=== PATIENT | female | born 1980 | race Caucasian/White ===

== ENCOUNTER 2016-05-20 12:08 | Inpatient (IN) | payer OTHER ==
[~2016-05-20] VITALS: Ht 162.6 cm; Wt 77.2 kg
[~2016-05-20 12:08] MED LIST: CITALOPRAM HBR20 MG PO; LORAZEPAM0.5 MG PO; PROTONIX40 M3 PO
[2016-05-20 13:25] VITALS: BP 109/80
[2016-05-20 13:33] LABS: ABSOLUTE BASOPHIL COUNT 0 /CUMM (0.0-0.2); ABSOLUTE EOSINOPHIL COUNT 0.1 /CUMM (0.0-0.7); ABSOLUTE GRANULOCYTE CT 4.8 /CUMM (1.4-6.5); ABSOLUTE LYMPH COUNT 2.4 /CUMM (1.2-3.4); ABSOLUTE MONOCYTE COUNT 0.8 /CUMM (0.10-0.60); BASOPHIL % 0.5 % (0.0-2.0); EOSINOPHIL % 0.7 % (0-5); GRANULOCYTE % 59.8 % (42.2-75.2); HEMATOCRIT 35.8 % (37-47); MEAN CORPUSCULAR HGB 34.5 PG (27.0-31.0); MEAN CORPUSCULAR HGB CONC 35.3 G/DL (33.0-37.0); MEAN CORPUSCULAR VOLUME 97.6 FL (81.0-99.0); MEAN PLATELET VOLUME 9.4 FL (7.4-10.4); PLATELET COUNT 115 /CUMM (130-400); RED BLOOD CELL CT 3.66 /CUMM (4.20-5.40); WHITE BLOOD CELL COUNT 8.1 /CUMM (4.8-10.8)
[2016-05-20] MEDS ORDERED: GABAPENTIN300 M2 PO (14:08)
[2016-05-20] MEDS ORDERED: METOPROLOL SUCC50 M2 PO (14:09)
[2016-05-20] MEDS ORDERED: TEGRETOL XR200 M1 PO (14:09)
[2016-05-20] MEDS ORDERED: FERROUS SULFAT325 M3 PO (14:10)
[2016-05-20] MEDS ORDERED: CLINDAMYCIN HC300 M1 PO (14:10)
[2016-05-20] MEDS ORDERED: FOLIC ACID0.8 M2 PO (14:10)
[2016-05-20] MEDS ORDERED: TERBINAFINE HC250 MG PO (14:11)
[2016-05-20] MEDS ORDERED: HAIR-SKIN-NAIL1 EACH PO (14:12)
--- NOTE | 2016-05-20 14:12 | ED PSYCHIATRIC COMPLAINT ---
See Addendum History of Present Illness General Chief Complaint: ETOH/Drug Related Complaint Stated Complaint: REQUEST DETOX ETOH Source: patient, old records, friend Exam Limitations: intoxication Vital Signs & Intake/Output Vital Signs & Intake/Output Vital Signs Date Time Temp Pulse Resp B/P Pulse O2 O2 Flow FiO2 Ox Delivery Rate 05/20 1448 97.4 67 18 102/58 04 1421 97.4 67 18 102/58 94 Room Air 05/20 1325 98.7 101 20 109/80 05/20 1213 98.7 101 20 109/80 98 Room Air Allergies Coded Allergies: Sulfa (Sulfonamide Antibiotics) (UNKNOWN 05/20/16) Reconcile Medications Carbamazepine (Tegretol XR) 200 MG TAB.ER.12H 1 TAB PO BID UNKNOWN (Reported) Citalopram Hydrobromide (Citalopram HBr) 20 MG TABLET 1 TAB PO DAILY MENTAL HEALTH (Reported) Clindamycin HCl 300 MG CAPSULE 1 CAP PO Q6 ANTIBIOTIC, INFECTION (Reported) Ferrous Sulfate 325 MG (65 MG IRON) TABLET 1 TAB PO DAILY SUPPLEMENT ( Reported) Folic Acid 0.8 MG TABLET 1 TAB PO DAILY SUPPLEMENT (Reported) Gabapentin 300 MG CAPSULE 1 CAP PO TID UNKNOWN (Reported) Metoprolol Succinate 50 MG TAB.ER.24H 1 TAB PO DAILY HEART (Reported) Pantoprazole Sodium (Protonix) 40 MG TABLET.DR 1 TAB PO DAILY GI (Reported) Terbinafine HCl 250 MG TABLET 1 TAB PO DAILY UNKNOWN (Reported) Vitamin C/Biotin (Bpea-Zkkt-Onhpl Gummies) 50 MG-1,250 MCG TAB.CHEW 2 TAB PO DAILY SUPPLEMENT (Reported) Triage Note: PT TO ED WITH FRIEND REQUESTING ETOH DETOX. STATES SHE DRINKS 5-6 (25 OZ) BEERS PER DAY. 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 DENIES DRUG USE. DENIES SI/HI. STATES HAS DETOXED IN THE PAST, LAST TIME WAS 2015. PT HAS H/O SEIZURES FOR WHICH SHE TAKES TEGRETOL, STATES SEIZURES CAN WORSE WITH ETOH DETOX. PT ALSO C/O N/V/D. Triage Nurses Notes Reviewed? yes Onset: Just prior to arrival Duration: week(s):, constant, continues in ED Timing: recent history Severity: severe Associated Symptoms: anxiety, impaired concentration LMP (ages 10-50): unknown : No Patient currently breastfeeds: No HPI: Patient admits to being alcoholic and continues to drink beer and hard liquor with lasting prior to admission seeking detox. She has a history of withdrawal seizures greater than 1 year ago and DTs. She also reports episodes of nausea vomiting loose stools when arising daily over the last month. She denies fever chills chest pain cough shortness of breath headache dysuria rash bleeding. (EDWARDO ALEX MD) Past History Travel History Traveled to [place] past 21 day No Medical History Any Pertinent Medical History? see below for history Neurological: seizure Cardiovascular: tachycardia Influenza Vaccine: 01/23/11 Surgical History Surgical History: non-contributory Psychosocial History Who do you live with Patient/Self Services at Home None What is your primary language Sinhala Tobacco Use: Current Daily Use Daily Tobacco Use Amount/Type: => 5 Cigarettes daily ETOH Use: alcoholic Illicit Drug Use: denies illicit drug use Family History Hx Contributory? No (EDWARDO ALEX MD) Review of Systems Review of Systems Constitutional: Reports: no symptoms. EENTM: Reports: no symptoms. Respiratory: Reports: no symptoms. Cardiovascular: Reports: no symptoms. GI: Reports: see HPI, diarrhea, nausea, vomiting. Genitourinary: Reports: no symptoms. Musculoskeletal: Reports: no symptoms. Skin: Reports: no symptoms. Neurological/Psychological: Reports: see HPI, confusion, emotional problems. Hematologic/Endocrine: Reports: no symptoms. Immunologic/Allergic: Reports: no symptoms. All Other Systems: Reviewed and Negative (EDWARDO ALEX MD) Physical Exam Physical Exam General Appearance: well developed/nourished, alert, awake, anxious, mild distress Head: atraumatic, normal appearance Eyes: Bilateral: normal appearance, PERRL, EOMI. Ears, Nose, Throat: normal pharynx, normal ENT inspection, hearing grossly normal Neck: normal inspection, supple, full range of motion, no midline tenderness Respiratory: normal breath sounds, chest non-tender, no respiratory distress, quiet respiration, lungs clear Cardiovascular: regular rate/rhythm, normal peripheral pulses, norml femoral pulses equa Gastrointestinal: normal bowel sounds, soft, non-tender, no organomegaly Extremities: normal range of motion Neurological/Psychiatric: no motor/sensory deficits, awake, agitated, alert, anxious, cake mixer II-XII nml as tested, oriented x 3 Appearance/Memory/Insight: disheveled, impaired insight Behavoir/Eye Contact/Speech: cooperative, normal speech Thoughts/Hallucinations: no apparent hallucination Skin: intact, normal color, warm/dry SAD PERSONS Done? patient not suicidal (EDWARDO ALEX MD) Progress Differential Diagnosis: drug intoxication, drug overdose, drug withdrawal, hypoglycemia Plan of Care: Orders Procedure Date/time Status [facility] 05/20 125 Active URINE DRUG SCREEN FOR ER ONLY 05/20 125 Complete TEGRETOL LEVEL 05/20 125 Complete MAGNESIUM 05/20 125 Complete LIPASE 05/20 125 Complete ETHANOL 05/20 1254 Complete COMPREHENSIVE METABOLIC PANEL 05/20 125 Complete CBC WITHOUT DIFFERENTIAL 05/20 125 Complete Laboratory Tests 05/20/16 1320: Anion Gap 19 H, Estimated GFR > 60, BUN/Creatinine Ratio 4.0 L, Glucose 125 H , Calcium 8.8, Magnesium 1.3 L, Total Bilirubin 0.9, AST 420 H, ALT 196 H, Alkaline Phosphatase 223 H, Total Protein 7.1, Albumin 3.6, Globulin 3.5, Albumin/Globulin Ratio 1.0 L, Lipase 324 H, CBC w Diff NO MAN DIFF REQ, RBC 3.66 L, MCV 97.6, MCH 34.5 H, RDW 15.0 H, MPV 9.4, Gran % 59.8, Lymphocytes % 29.2, Monocytes % 9.8 H, Eosinophils % 0.7, Basophils % 0.5, Absolute Granulocytes 4.8, Absolute Lymphocytes 2.4, Absolute Monocytes 0.8 H, Absolute Eosinophils 0.1, Absolute Basophils 0, PUBS MCHC 35.3, Carbamazepine 7.7, Serum Alcohol 377.0 05/20/16 1310: Urine Opiates Screen < 100.00, Methadone Screen < 40, Barbiturate Screen < 60, Ur Phencyclidine Scrn < 6.00, Amphetamines Screen < 100, U Benzodiazepines Scrn < 85, Urine Cocaine Screen < 50, Urine Cannabis Screen < 5.00 Hand-Off Endorsed To: ROSALIA DUFF DO Endorsed Time: 1600 Pending: other (MAKAYLA, Case Mgmt) (EDWARDO ALEX MD) Departure Departure Disposition: STILL A PATIENT Condition: Stable Clinical Impression Primary Impression: Alcohol intoxication delirium Secondary Impressions: Alcoholic liver disease, Hypomagnesemia Referrals: MAGO DOUGHERTY,RIP Beck (PCP/Family) Departure Forms: General Discharge Information (ISAI DOUGHERTY,EDWARDO) Departure Comments 05/20/16 4 PM Patient was signed out to me by Dr. Alex. She is here for acute alcohol intoxication. Alcohol level was 377. (ROSALIA DUFF DO)
[2016-05-20 14:48] VITALS: BP 102/58
[2016-05-20 16:53] VITALS: BP 109/56
[2016-05-20 18:48] VITALS: BP 103/68
[2016-05-20 20:31] VITALS: BP 124/74
[2016-05-20 22:50] VITALS: BP 115/74
[2016-05-21] VITALS (10 sets, daily range): BP systolic 98–145; BP diastolic 56–92
--- NOTE | 2016-05-21 06:32 | History & Physical ---
JAVED BETTENCOURT 05/21/16 0631: General Information and HPI MD Statement: I have seen and personally examined DELORIS WINTER and documented this H&P. The patient is a 35 year old F who presented with a patient stated chief complaint of [alcohol detox]. Source of Information: patient, old records History of Present Illness: This is 35-year-old female with past medical history of alcohol withdrawal seizure, asthma not on current medication, depression, anxiety, peripheral neuropathy. Presented to the emergency department requesting alcohol detox. Patient stated that she drink every day since 2016 until now, 6-7 cans of beer and hard liquor, patient stated that she was super for 1-1/2 month in the beginning of 2016 after that she restart drinking again, last drink was prior admission. Patient stated that the reason is because she likes to drink. She stated that she had a history of alcohol withdrawal seizure 6 years ago. She denied any admission to the ICU due to alcohol. Patient reported that she went to [facility] 2 weeks ago requesting detox but she was discharged from the hospital on Ativan taper. Now she stated that she complaining of tremor, palpitation, chest tightness, heart flashes with sweating, she feels that she is dehydrated, she reports nausea and 2 time vomiting without any blood, also she reports that she talk back to her boyfriend and brother despite no one in the room. Patient reports diarrhea for the past couple weeks none bloody. She denied any chest pain, chills, voice hallucination, Jermaine ideation, abdominal pain, constipation, headaches, change in vision or hearing, hematuria, dysuria. In ED patient was given by mouth Ativan and IV, due to high requirement patient was started on Ativan drip, also her magnesium was low she was given by mouth magnesium supplement. Allergies/Medications Allergies: Coded Allergies: Sulfa (Sulfonamide Antibiotics) (UNKNOWN 05/20/16) Home Med list Carbamazepine (Tegretol XR) 200 MG TAB.ER.12H 1 TAB PO BID UNKNOWN (Reported) Citalopram Hydrobromide (Citalopram HBr) 20 MG TABLET 1 TAB PO DAILY MENTAL HEALTH (Reported) Ferrous Sulfate 325 MG (65 MG IRON) TABLET 1 TAB PO DAILY SUPPLEMENT ( Reported) Folic Acid 0.8 MG TABLET 1 TAB PO DAILY SUPPLEMENT (Reported) Gabapentin 300 MG CAPSULE 1 CAP PO TID UNKNOWN (Reported) Metoprolol Succinate 50 MG TAB.ER.24H 1 TAB PO DAILY HEART (Reported) Pantoprazole Sodium (Protonix) 40 MG TABLET.DR 1 TAB PO DAILY GI (Reported) Vitamin C/Biotin (Hmwg-Hkuq-Xrcig Gummies) 50 MG-1,250 MCG TAB.CHEW 2 TAB PO DAILY SUPPLEMENT (Reported) Past History Travel History Traveled to [place] past 21 day No Medical History Neurological: peripheral neuropathy, seizure Cardiovascular: tachycardia Respiratory: asthma Influenza Vaccine: 01/23/11 Surgical History Surgical History: appendectomy Past Family/Social History Family History Relations & Conditions if any MOTHER (HEALTHY). FATHER (HEALTHY). Psychosocial History Services at Home: None Smoking Status: Current Everyday Smoker ETOH Use: alcoholic Illicit Drug Use: denies illicit drug use Functional Ability ADLs Independent: dressing, eating, toileting, bathing. Ambulation: independent IADLs Independent: shopping, housework, finances, food prep, telephone, transportation , medication admin. Review of Systems Review of Systems Constitutional: Reports: see HPI. Cardiovascular: Reports: see HPI. Respiratory: Reports: see HPI. GI: Reports: see HPI. Genitourinary: Reports: see HPI. Exam & Diagnostic Data Last 24 Hrs of Vital Signs/I&O Vital Signs Date Time Temp Pulse Resp B/P Pulse O2 O2 Flow FiO2 Ox Delivery Rate 05/21 626 109 16 113/65 98 Nasal 3.0L Cannula 05/21 0436 97.9 110 22 115/56 98 Nasal 2.0L Cannula 05/21 0535 110 20 115/56 04/06 0430 124 20 145/89 / 0430 125 20 145/89 97 Nasal 2.0L Cannula / 0423 125 20 145/89 / 0307 98.3 120 18 141/65 97 Room Air /06 0300 98.3 120 18 141/65 04/06 0049 97.9 110 18 119/67 04/06 0028 97.9 110 18 119/67 95 Room Air 04/05 2251 98.5 118 20 115/74 98 Room Air /2249 98.5 98 20 115/74 04/2150 97.5 97 20 125/72 93 Room Air 04/2031 97.3 100 18 122/64 100 Room Air /2030 97.3 100 18 124/74 / 1848 97.1 98 18 103/68 04/05 1847 97.1 98 18 103/68 94 Room Air /05 1654 97.9 94 17 109/56 94 Room Air /05 1653 97.9 94 17 109/56 04/05 1448 97.4 67 18 102/58 04/05 1421 97.4 67 18 102/58 94 Room Air / 1325 98.7 101 20 109/80 04/05 1213 98.7 101 20 109/80 98 Room Air Intake & Output 05/21 0800 05/21 0000 05/20 1600 Intake Total 2000 Output Total 1 Balance 1999 - Intake, IV 1999 Output, Urine 1 Patient 160 lb Weight Physical Exam General Appearance Alert, Oriented X3, Cooperative HEENT PERRLA, EOMI Neck Supple Cardiovascular Normal S1, Normal S2 Lungs Normal Air Movement, EXPIRATORY WHEEZING Abdomen Normal Bowel Sounds, Soft, No Tenderness Extremities No Edema, Normal Pulses, UPPER EXT TREMOR NOTED Last 24 Hrs of Labs/Deric: Laboratory Tests 05/20/16 1320: Anion Gap 19 H, Estimated GFR > 60, BUN/Creatinine Ratio 4.0 L, Glucose 125 H , Calcium 8.8, Magnesium 1.3 L, Total Bilirubin 0.9, AST 420 H, ALT 196 H, Alkaline Phosphatase 223 H, Total Protein 7.1, Albumin 3.6, Globulin 3.5, Albumin/Globulin Ratio 1.0 L, Lipase 324 H, CBC w Diff NO MAN DIFF REQ, RBC 3.66 L, MCV 97.6, MCH 34.5 H, RDW 15.0 H, MPV 9.4, Gran % 59.8, Lymphocytes % 29.2, Monocytes % 9.8 H, Eosinophils % 0.7, Basophils % 0.5, Absolute Granulocytes 4.8, Absolute Lymphocytes 2.4, Absolute Monocytes 0.8 H, Absolute Eosinophils 0.1, Absolute Basophils 0, PUBS MCHC 35.3, Carbamazepine 7.7, Serum Alcohol 377.0 05/20/16 1310: Urine Opiates Screen < 100.00, Methadone Screen < 40, Barbiturate Screen < 60, Ur Phencyclidine Scrn < 6.00, Amphetamines Screen < 100, U Benzodiazepines Scrn < 85, Urine Cocaine Screen < 50, Urine Cannabis Screen < 5.00 Diagnostic Data EKG Results Normal Sinus rhythm Assessment/Plan Assessment: This is 35-year-old female with past medical history of alcohol withdrawal seizure, asthma not on current medication, depression, anxiety, peripheral neuropathy. Presented to the emergency department requesting alcohol detox. Assessment: -Alcohol withdrawal: Giving the patient previous history of alcohol withdrawal seizure, patient will need Ativan drip and close monitoring for any sign of DTs as she require a lot of by mouth and IV Ativan. -Transaminitis with alk phosp elevated/lipase: Giving the patient long history of alcohol intake at the most likely secondary to alcoholism, no need for any imaging as the patient don't experience any abdominal pain. -Thrombocytopenia: From the previous records in the hospital this is the first time the patient reached this low level of platelets 115, it could be most likely due to alcoholism. Patient will need monitoring as an outpatient. -Hypomagnesemia/hypokalemia: Most likely secondary to alcoholism, patient will need supplement and recheck labs. -Expiratory wheezing: Giving the patient remote history of asthma, and as the patient don't use any MEDs for that, she will need TRC evaluation and getting worse she will need asthma exacerbation treatment. Plan: -Admit patient to the ICU -Vitals every shift, I and O's, CIWA -Aspiration precaution -Ativan drip PRE protocol -Magnesium and potassium supplement, Repeat electrolytes as needed -thiamine IV dose, banana bag, folic acid, multivitamin -Repeat CBC in the morning for evaluation -TRC nebs as needed -If the patient wheezing getting worse start the patient on IV steroid. -Regular diet -Pain pathway -DVT PROPHYLAXIS: Alps -Full code As Ranked By This Provider Problem List: 1. Hypomagnesemia 2. Alcoholic liver disease Core Measures/Miscellaneous Acute Coronary Syndrome ACS Diagnosis: No Cerebrovascular Accident CVA/TIA Diagnosis: No Congestive Heart Failure CHF Diagnosis: No Venous Thromboembolism VTE Risk Factors: Acute medical illness, Obesity, Sm[facility] prophylaxis d/t: No contraindications No VTE Pharm Prophylaxis d/t: Platelets below ref range VTE Diagnosis: No VTE Type: NONE VTE Confirmed by (Test): NONE Severe Sepsis Severe Sepsis Present: No Septic Shock Septic Shock Present: No Miscellaneous Documentation Attending Case Discussed With: Rodney Bucio MD Primary Care Physician: RIP MERCEDES MD Patient sees these Specialists ICU Level of Patient Care: Critical Care (CRI) SINCERE DOUGHERTY,[facility] 05/21/16 0948: Attending MD Review Statement Attending Statement Attending MD Statement: examined this patient, discuss w/resident/PA/POULTRY HATCHERY MANAGER, agreed w/resident/PA/POULTRY HATCHERY MANAGER, discussed with family, reviewed EMR data (avail), discussed with nursing, discussed with case mgmt, reviewed images, amended to note Attending Assessment/Plan: Seen and examined independently Agree with above note Pt with sig etoh use with DT Altered lft with elevated lipase with sig diarrhea with electrolyte abnormalities History of asthma with wheezing with sig smoking history REC Cont current rx Check anion gap and electrolytes this pm Check lactic acid level and salicylic acid level Cont banana bag Minimize fluids Nebs atc Stool work up Agg mag and potassium replacement Cont out pt meds Psych to see Will follow closlely Check ekg and troponin keegan
[2016-05-21 08:30] LABS: PT 13.1 SEC (9.4-12.5); PTT 32 SEC (25-37)
[2016-05-21 08:39] LABS: ABSOLUTE BASOPHIL COUNT 0 /CUMM (0.0-0.2); ABSOLUTE EOSINOPHIL COUNT 0 /CUMM (0.0-0.7); ABSOLUTE GRANULOCYTE CT 4.1 /CUMM (1.4-6.5); ABSOLUTE LYMPH COUNT 1.5 /CUMM (1.2-3.4); ABSOLUTE MONOCYTE COUNT 0.6 /CUMM (0.10-0.60); BASOPHIL % 0.4 % (0.0-2.0); EOSINOPHIL % 0.4 % (0-5); GRANULOCYTE % 64.6 % (42.2-75.2); HEMATOCRIT 32.4 % (37-47); MEAN CORPUSCULAR HGB CONC 34.2 G/DL (33.0-37.0); MEAN CORPUSCULAR VOLUME 99.4 FL (81.0-99.0); MEAN PLATELET VOLUME 10.4 FL (7.4-10.4); PLATELET COUNT 91 /CUMM (130-400); RBC DISTRIBUTION WIDTH 14.8 % (11.5-14.5); RED BLOOD CELL CT 3.26 /CUMM (4.20-5.40); WHITE BLOOD CELL COUNT 6.3 /CUMM (4.8-10.8)
[2016-05-22] VITALS (9 sets, daily range): BP systolic 92–140; BP diastolic 63–98
[2016-05-22 05:37] LABS: ABSOLUTE BASOPHIL COUNT 0 /CUMM (0.0-0.2); ABSOLUTE EOSINOPHIL COUNT 0.1 /CUMM (0.0-0.7); ABSOLUTE GRANULOCYTE CT 3.5 /CUMM (1.4-6.5); ABSOLUTE LYMPH COUNT 1.5 /CUMM (1.2-3.4); ABSOLUTE MONOCYTE COUNT 0.4 /CUMM (0.10-0.60); BASOPHIL % 0.5 % (0.0-2.0); EOSINOPHIL % 1.3 % (0-5); GRANULOCYTE % 63.8 % (42.2-75.2); HEMATOCRIT 31.5 % (37-47); MEAN CORPUSCULAR HGB CONC 33.6 G/DL (33.0-37.0); MEAN CORPUSCULAR VOLUME 101.1 FL (81.0-99.0); PLATELET COUNT 103 /CUMM (130-400); RBC DISTRIBUTION WIDTH 14.9 % (11.5-14.5); RED BLOOD CELL CT 3.12 /CUMM (4.20-5.40); WHITE BLOOD CELL COUNT 5.5 /CUMM (4.8-10.8)
--- NOTE | 2016-05-22 08:00 | PN- Resident CRCU ---
Subjective HPI/CRCU Issues: Patient seen and examined this morning. She was lying comfortably in bed in no acute distress. Overnight her blood pressure has been ranging between 110 to 120s, MAXIMUM TEMPERATURE of 99, heart rate ranging between 90-100, remains on 2 L of nasal cannula oxygen satting well in high 90s. No complaints of nausea, vomiting, diarrhea has improved. Denies any tremors, hallucination, chest pain, abdominal pain, palpitation, dizziness. Remains on Ativan drip running at 20mcg/hr. Objective Vital Signs & I&O Last 8 Hrs of Vitals and I&O: Laboratory Tests 05/22/16 0500: Anion Gap 7, Estimated GFR > 60, Glucose 103 H, Calcium 7.1 L, Phosphorus 2.1 L, Magnesium 1.9, Total Bilirubin 2.4 H, AST 404 H, ALT 177 H, Albumin 2.8 L , CBC w Diff NO MAN DIFF REQ, RBC 3.12 L, MCV 101.1 H, MCH 34.0 H, RDW 14.9 H, MPV 10.0, Gran % 63.8, Lymphocytes % 27.3, Monocytes % 7.1, Eosinophils % 1.3 , Basophils % 0.5, Absolute Granulocytes 3.5, Absolute Lymphocytes 1.5, Absolute Monocytes 0.4, Absolute Eosinophils 0.1, Absolute Basophils 0, PUBS MCHC 33.6 05/21/16 1800: Anion Gap 7, Estimated GFR > 60, Glucose 98, Calcium 7.2 L, Phosphorus 2.5, Magnesium 1.9, Total Bilirubin 2.2 H, AST 510 H, ALT 188 H, Albumin 2.7 L 05/21/16 1500: Lactic Acid 2.9 H 05/21/16 1100: Lactic Acid 3.3 H 05/21/16 1100: Anion Gap 10, Estimated GFR > 60, Glucose 116 H, Calcium 7.6 L, Phosphorus 2.6 , Magnesium 1.7, Total Bilirubin 2.0 H, AST 621 H, ALT 219 H, Albumin 3.1 L, Salicylates < 1.0 Microbiology 05/21 1000 STOOL: Clostridium difficile Toxin A & B - RECD 05/21 1000 STOOL: Stool Culture - RECD 05/22 943 STOOL: Cryptosporidium Antigen - COLB 05/22 943 STOOL: Giardia Antigen (MARIELLE) - COLB Vital Signs Date Time Temp Pulse Resp B/P Pulse O2 O2 Flow FiO2 Ox Delivery Rate 05/22 0600 99 33 117/69 05/22 0400 99.7 100 19 102/72 05/22 0400 97 Nasal 2.0L Cannula 05/22 0000 98.8 94 23 92/63 / 0000 98.8 94 23 92/63 97 Nasal 2.0L Cannula 05/22 0000 97 Nasal 2.0L Cannula 05/21 2200 96 23 100/65 05/21 2000 99.2 97 26 105/67 05/21 2000 96 Nasal 2.0L Cannula 05/21 1600 99.0 98 22 106/68 05/21 1600 96 Nasal 2.0L Cannula 05/21 1600 99.0 98 22 106/68 96 Nasal 2.0L Cannula 05/21 1000 98.6 105 20 98/62 05/21 0857 Nasal 2.0L Cannula Intake & Output 05/22 1600 05/22 0800 05/22 0000 Intake Total 260 1642 Output Total 600 601 Balance -340 1041 Intake, IV 140 1492 Intake, Oral 120 150 Number 3 100 Bowel Movements Output, Stool 1 Output, Urine 600 600 Exam General Appearance: well developed/nourished, no apparent distress, lethargic Head: atraumatic, normal appearance Cardiovascular: regular rate/rhythm Gastrointestinal: normal bowel sounds, soft, non-tender Extremities: normal inspection, no edema Current Medications: Current Medications Sig/Carola Start time Last Medication Dose Route Stop Time Status Admin Carbamazepine 200 MG BID 05/21 1342 AC 05/21 PO 2146 Citalopram 20 MG DAILY 05/21 1342 AC 05/21 Hydrobromide PO 1549 Cyanocobalamin/ 1 BAG DAILY 05/21 1000 AC 05/21 Thiamine/Pyridoxine IV 05/23 1759 1405 Sodium Chloride 1,000 ML Ferrous Sulfate 325 MG DAILY 05/21 1343 AC 05/21 PO 1549 Folic Acid 1 MG DAILY 05/24 1000 AC PO 05/26 1001 Folic Acid 1 MG DAILY 05/21 1000 DC PO 05/23 1001 Gabapentin 300 MG TID 05/21 1000 AC 05/21 PO 2146 Ibuprofen 400 MG 4 TIMES/DAY PRN 05/21 0630 AC PO Lorazepam 50 MG Q24H 05/21 0515 AC 05/22 Sodium Chloride 500 ML IV 0133 Magnesium Sulfate 1 GM ONCE ONE 05/21 1700 DC Dextrose/Water 100 ML IV 05/21 2059 1100 Magnesium Sulfate 1 GM .STK-MED ONE 05/21 1640 DC IV 05/21 1641 Magnesium Sulfate 1 GM ONCE ONE 05/21 1300 DC 05/21 Dextrose/Water 100 ML IV 05/21 1659 0943 Magnesium Sulfate 1 GM ONCE ONE 05/21 0845 DC 04/ Dextrose/Water 100 ML IV 05/21 1244 0843 Magnesium Sulfate 1 GM .STK-MED ONE 05/21 0836 DC IM 05/21 0837 Metoprolol Succinate 50 MG DAILY 05/21 1000 AC 05/21 PO 1403 Multivitamins 1 TAB DAILY 05/24 1000 AC PO Multivitamins 1 TAB DAILY 05/21 1000 DC PO Nicotine 14 MG DAILY 05/21 1000 AC 05/21 TOP 1403 Ondansetron HCl 4 MG ONCE ONE 05/21 0900 DC IV 05/21 0901 Oxycodone HCl 5 MG Q6 PRN 05/21 0630 AC PO Phosphate 250 MG PC AND AT BEDTIME 05/22 0900 AC PO Potassium Chloride 20 MEQ BID 05/22 1000 AC PO 05/22 2201 Potassium Chloride 40 MEQ ONCE ONE 05/21 1930 DC 04/ PO 05/21 1931 2017 Potassium Phosphate 15 mMol ONE ONE 05/21 0845 DC 05/21 Dextrose/Water 250 ML IV 05/21 1248 1039 Thiamine HCl 100 MG DAILY 05/24 1000 AC PO Thiamine HCl 500 MG TID 05/21 1000 AC 05/21 Sodium Chloride 100 ML IV 05/23 2302 2146 Antibiotics Antibiotics? none Impression/Plan Impression/Problem List Impression: This is 35-year-old female with past medical history of alcohol withdrawal seizure, asthma not on current medication, depression, anxiety, peripheral neuropathy. Presented to the emergency department requesting alcohol detox. Patient stated that she drink every day since 2016 until now, 6-7 cans of beer and hard liquor, patient stated that she was super for 1-1/2 month in the beginning of 2015 after that she restart drinking again, last drink was prior admission. She was admitted to ICU yesterday, started on Ativan drip. We are currently monitoring for the following conditions.: Alcohol withdrawal : Patient currently on Ativan drip running at 20mcg per hour CIWA in last 24 hours 3-5 Thiamine/folic acid/MV Psychiatry consult has been placed, with follow-up recommendations. Respiratory; Patient was wheezing upon presentation, improved, remains on 2 L of nasal cannula oxygen, satting in the 90s, TRC to continue Infectious disease: No issues, MAXIMUM TEMPERATURE of 99 last night. White count stable. Cardiovascular: No issues, heart rate and blood pressure has been in normal limits. Gastrointestinal: Alcoholic Transaminitis: Elevated LFTs upon presentation, likely secondary to alcohol consumption. Patient will need close outpatient follow-up for further management. Diarrhea : Patient presented with diarrhea, likely secondary to chronic alcohol consumption and poor oral intake, episodes have been improved ever since admission. Will follow-up stool cultures, ova parasites, C. difficile. Patient tolerating by mouth intake well without any nausea or vomiting. Renal: No issues, creatinine stable. Metabolic: Hypomagnesemia; Presented with magnesium level of 0.7, replaced, repeat levels 1.9, follow repeat labs, repeat as needed. Hypokalemia: Levels upon presentation to 3.7, replaced repeat levels improved, follow repeat labs, repeat as needed. Hypophosphatemia: Replaced,follow repeat labs, repeat as needed. DVT prophylaxis: ALPS Pain pathway Patient is full code. Problem List: 1. Alcohol dependence 2. Hypomagnesemia 3. Transaminitis Pain Ratin Tomorrow's Labs & Rationales: ICU bundle for lytes monitoring Plan DVT/Prophylaxis: pharmacological
--- NOTE | 2016-05-22 09:05 | PN- CRCU ---
Subjective HPI/Critical Care Issues: The patient is awake but is slightly confused. Her mental status has improved since yesterday. She is now on 2 mg of Ativan per hour which has improved over the past 24 hours. Her CIWA scores are between 3 and 7. She is not able to offer complaints. Objective Current Medications: Current Medications Sig/Carola Start time Last Medication Dose Route Stop Time Status Admin Carbamazepine 200 MG BID 05/21 1342 AC 05/21 PO 2146 Citalopram 20 MG DAILY 05/21 1342 AC 05/21 Hydrobromide PO 1549 Cyanocobalamin/ 1 BAG DAILY 05/21 1000 AC 05/21 Thiamine/Pyridoxine IV 05/23 1759 1405 Sodium Chloride 1,000 ML Ferrous Sulfate 325 MG DAILY 05/21 1343 AC 05/21 PO 1549 Folic Acid 1 MG DAILY 05/24 1000 AC PO 05/26 1001 Folic Acid 1 MG DAILY 05/21 1000 DC PO 05/23 1001 Gabapentin 300 MG TID 05/21 1000 AC 05/21 PO 2146 Ibuprofen 400 MG 4 TIMES/DAY PRN 05/21 0630 AC PO Lorazepam 50 MG Q24H 05/21 0515 AC 05/22 Sodium Chloride 500 ML IV 0133 Magnesium Sulfate 1 GM ONCE ONE 05/21 1700 DC 05/21 Dextrose/Water 100 ML IV 05/21 2059 1100 Magnesium Sulfate 1 GM .STK-MED ONE 05/21 1640 DC IV 05/21 1641 Magnesium Sulfate 1 GM ONCE ONE 05/21 1300 DC 05/21 Dextrose/Water 100 ML IV 05/21 1659 0943 Magnesium Sulfate 1 GM ONCE ONE 05/21 0845 DC 05/21 Dextrose/Water 100 ML IV 05/21 1244 0843 Metoprolol Succinate 50 MG DAILY 05/21 1000 AC 05/21 PO 1403 Multivitamins 1 TAB DAILY 05/24 1000 AC PO Multivitamins 1 TAB DAILY 05/21 1000 DC PO Nicotine 14 MG DAILY 05/21 1000 AC 05/21 TOP 1403 Ondansetron HCl 4 MG ONCE ONE 05/21 0900 DC IV 05/21 0901 Oxycodone HCl 5 MG Q6 PRN 05/21 0630 AC PO Phosphate 250 MG PC AND AT BEDTIME 05/22 0900 AC PO Potassium Chloride 20 MEQ BID 05/22 1000 AC PO 05/22 2201 Potassium Chloride 40 MEQ ONCE ONE 05/21 1930 DC 04 PO 05/21 Potassium Phosphate 15 mMol ONE ONE 05/21 0845 DC 05/21 Dextrose/Water 250 ML IV 05/21 1248 1039 Thiamine HCl 100 MG DAILY 05/24 1000 AC PO Thiamine HCl 500 MG TID 05/21 1000 AC 05/21 Sodium Chloride 100 ML IV 05/23 2302 2146 Vital Signs & I&O Last 24 Hrs of Vitals and I&O: Vital Signs Date Time Temp Pulse Resp B/P Pulse O2 O2 Flow FiO2 Ox Delivery Rate 05/22 599 99 33 117/69 05/22 0400 99.7 100 19 102/72 05/22 0400 97 Nasal 2.0L Cannula 05/22 0000 98.8 94 23 92/63 05/22 0000 98.8 94 23 92/63 97 Nasal 2.0L Cannula 05/22 0000 97 Nasal 2.0L Cannula 05/21 2200 96 23 100/65 05/22 1999 99.2 97 26 105/67 05/21 2000 96 Nasal 2.0L Cannula 05/21 1600 99.0 98 22 106/68 05/21 1600 96 Nasal 2.0L Cannula 05/21 1600 99.0 98 22 106/68 96 Nasal 2.0L Cannula 05/21 1000 98.6 105 20 98/62 05/21 0857 Nasal 2.0L Cannula Intake & Output 05/22 1600 05/22 0800 05/22 0000 Intake Total 260 1642 Output Total 600 601 Balance -340 1041 Intake, IV 140 1492 Intake, Oral 120 150 Number 3 100 Bowel Movements Output, Stool 1 Output, Urine 600 600 Exam General Appearance: awake, comfortable Head: atraumatic, normal appearance Neck: supple Respiratory: no respiratory distress, lungs clear Cardiovascular: regular rate/rhythm, normal peripheral pulses Abdomen: normal bowel sounds, soft, non-tender Extremities: no edema Skin: intact, normal color, warm/dry Results Last 24 Hrs of Lab Results: Laboratory Tests 05/22/16 0500: Anion Gap 7, Estimated GFR > 60, Glucose 103 H, Calcium 7.1 L, Phosphorus 2.1 L, Magnesium 1.9, Total Bilirubin 2.4 H, AST 404 H, ALT 177 H, Albumin 2.8 L , CBC w Diff NO MAN DIFF REQ, RBC 3.12 L, MCV 101.1 H, MCH 34.0 H, RDW 14.9 H, MPV 10.0, Gran % 63.8, Lymphocytes % 27.3, Monocytes % 7.1, Eosinophils % 1.3 , Basophils % 0.5, Absolute Granulocytes 3.5, Absolute Lymphocytes 1.5, Absolute Monocytes 0.4, Absolute Eosinophils 0.1, Absolute Basophils 0, PUBS MCHC 33.6 05/21/16 1800: Anion Gap 7, Estimated GFR > 60, Glucose 98, Calcium 7.2 L, Phosphorus 2.5, Magnesium 1.9, Total Bilirubin 2.2 H, AST 510 H, ALT 188 H, Albumin 2.7 L 05/21/16 1500: Lactic Acid 2.9 H 05/21/16 1100: Lactic Acid 3.3 H 05/21/16 1100: Anion Gap 10, Estimated GFR > 60, Glucose 116 H, Calcium 7.6 L, Phosphorus 2.6 , Magnesium 1.7, Total Bilirubin 2.0 H, AST 621 H, ALT 219 H, Albumin 3.1 L, Salicylates < 1.0 Impression/Plan Impression/Plan Impression/Plan: 1. EtOH withdrawal. Overall Ativan requirement has improved. 2. Transaminitis secondary to EtOH hepatitis. 3. Severe electrolyte abnormalities, undergoing repletion. 4. History of asthma and significant smoking history, no evidence of bronchospasm at present. 5. Stool colonized with VRE. 6. Thrombocytopenia secondary to EtOH. Recommendations: * Continue to wean Ativan down and monitor CIWA scores. * Start oral Ativan 1 mg, by mouth every 8 hours. * Avoid oversedation. * Continue multivitamin, thiamine and folate. * Continue with aggressive electrolyte repletion. * Mechanical DVT prophylaxis, no heparin due to thrombocytopenia. * Continue close monitoring in the critical care unit.
--- NOTE | 2016-05-22 14:14 | Cons- Psychiatry ---
Psychiatric Consult Date of Consult: 05/22/16 Reason for Consult: "Alcohol dependence, depression, anxiety" After review with housestaff and nursing, reason changed to: Please assist with acute alcohol withdrawal management. History of Present Illness: This is a 35-year-old female who reported to the ED with a friend requesting alcohol detox on 05/20/2016 1219. She reported that her last drink was just prior to presentation. The patient has a history of seizures, for which he takes Tegretol, and per the triage note, these become worse during alcohol detox. This is the first admission for this patient since June 2013. This is her ninth admission for alcohol withdrawal since January 2011. She reports that she was recently at [facility] for alcohol withdrawal, but began drinking upon discharge. We do not know if she has ever participated in an IOP or rehabilitation program for alcohol and drug abuse. Further history will be provided after the patient is able to participate in an interview. Allergies: Coded Allergies: Sulfa (Sulfonamide Antibiotics) (UNKNOWN 05/20/16) Current Medications: Current Medications Sig/Carola Start time Last Medication Dose Route Stop Time Status Admin Al Hydroxide/Mg 30 ML ONCE ONE 05/22 1000 DC 05/22 Hydroxide PO 05/22 1001 0957 Carbamazepine 200 MG BID 05/21 1342 AC 05/22 PO 0907 Citalopram 20 MG DAILY 05/21 1342 AC 05/22 Hydrobromide PO 0907 Cyanocobalamin/ 1 BAG DAILY 05/21 1000 AC 05/22 Thiamine/Pyridoxine IV 05/23 1759 0908 Sodium Chloride 1,000 ML Ferrous Sulfate 325 MG DAILY 05/21 1343 AC 05/22 PO 0907 Folic Acid 1 MG DAILY 05/24 1000 AC PO 05/26 1001 Gabapentin 300 MG TID 05/21 1000 AC 05/22 PO 0907 Haloperidol 2 MG Q6 05/22 1800 AC PO Haloperidol 1 MG ONE TIME ONE 05/22 1445 DC 05/22 PO 05/22 1446 1445 Haloperidol 2 MG Q8P PRN 05/22 1415 AC PO Haloperidol 1 MG Q6 05/22 1401 DC 05/22 PO 1406 Ibuprofen 400 MG 4 TIMES/DAY PRN 05/21 0630 AC PO Lorazepam 1 MG Q8 05/22 1400 CAN PO Lorazepam 50 MG Q24H 05/21 0515 AC 05/22 Sodium Chloride 500 ML IV 0133 Magnesium Sulfate 1 GM ONCE ONE 05/21 1700 DC 05/21 Dextrose/Water 100 ML IV 05/219 1100 Metoprolol Succinate 50 MG DAILY 05/21 1000 AC 05/22 PO 0907 Multivitamins 1 TAB DAILY 05/24 1000 AC PO Nicotine 14 MG DAILY 05/21 1000 AC 05/22 TOP 0907 Omeprazole 40 MG DAILY AC 05/22 0946 AC 05/22 PO 1152 Oxycodone HCl 5 MG Q6 PRN 05/21 0530 AC PO Phosphate 250 MG PC AND AT BEDTIME 05/22 09 AC 05/22 PO 1152 Potassium Chloride 20 MEQ BID 05/22 1000 AC 05/22 PO 05/22 2201 0911 Potassium Chloride 40 MEQ ONCE ONE 05/21 1929 DC 05/21 PO 05/21 Thiamine HCl 100 MG DAILY 05/24 1000 AC PO Thiamine HCl 500 MG TID 05/21 999 AC 05/22 Sodium Chloride 100 ML IV 05/23 2302 0908 Past History Past Medical History Neurological: peripheral neuropathy, seizure Cardiovascular: tachycardia Respiratory: asthma Psychiatric: ANXIETY/DEPRESSION Past Surgical History Surgical History: appendectomy Assessment/Plan Mental Status Mental Status Exam: Calm, sitting in chair, drowsy, but arousable, oriented to person, day and place. She endorses non-specific visual hallucinations; denies auditory or tactile hallucinations, at this time. She indicates that she feels safe here. She denies SI/HI. The patient is not able to fully participate in an interview, at this time. Lab Results: Laboratory Tests 05/22 05/21 05/21 0500 1800 1500 Chemistry Sodium (137 - 145 mmol/L) 138 134 L Potassium (3.5 - 5.1 mmol/L) 3.7 3.5 Chloride (98 - 107 mmol/L) 103 100 Carbon Dioxide (22 - 30 mmol/L) 27 26 Anion Gap (5 - 16) 7 7 BUN (7 - 17 mg/dL) < 2 L < 2 L Creatinine (0.5 - 1.0 mg/dL) 0.5 0.5 Estimated GFR (>60 ml/min) > 60 > 60 Glucose (65 - 99 mg/dL) 103 H 98 Lactic Acid (0.7 - 2.1 mmol/L) 2.9 H Calcium (8.4 - 10.2 mg/dL) 7.1 L 7.2 L Phosphorus (2.5 - 4.5 mg/dL) 2.1 L 2.5 Magnesium (1.6 - 2.3 mg/dL) 1.9 1.9 Total Bilirubin (0.2 - 1.3 mg/dL) 2.4 H 2.2 H AST (14 - 36 U/L) 404 H 510 H ALT (9 - 52 U/L) 177 H 188 H Albumin (3.5 - 5.0 g/dL) 2.8 L 2.7 L Hematology CBC w Diff NO MAN DIFF REQ WBC (4.8 - 10.8 /CUMM) 5.5 RBC (4.20 - 5.40 /CUMM) 3.12 L Hgb (12.0 - 16.0 G/DL) 10.6 L Hct (37 - 47 %) 31.5 L MCV (81.0 - 99.0 FL) 101.1 H MCH (27.0 - 31.0 PG) 34.0 H RDW (11.5 - 14.5 %) 14.9 H Plt Count (130 - 400 /CUMM) 103 L MPV (7.4 - 10.4 FL) 10.0 Gran % (42.2 - 75.2 %) 63.8 Lymphocytes % (20.5 - 51.1 %) 27.3 Monocytes % (1.7 - 9.3 %) 7.1 Eosinophils % (0 - 5 %) 1.3 Basophils % (0.0 - 2.0 %) 0.5 Absolute Granulocytes (1.4 - 6.5 /CUMM) 3.5 Absolute Lymphocytes (1.2 - 3.4 /CUMM) 1.5 Absolute Monocytes (0.10 - 0.60 /CUMM) 0.4 Absolute Eosinophils (0.0 - 0.7 /CUMM) 0.1 Absolute Basophils (0.0 - 0.2 /CUMM) 0 PUBS MCHC (33.0 - 37.0 G/DL) 33.6 Diffential Diagnosis: Alcohol use disorder, severe, recurrent Substance-induced mood disorder R/O underlying mood disorder, including depression or anxiety NOS History of cocaine abuse History of cannabis abuse History of personality disorder NOS Impression: The patient is currently exhibiting signs reporting symptoms of alcoholic hallucinosis, and we are concerned, due to her increasing need for IV lorazepam, that this may be progressing to acute alcohol withdrawal syndrome, or delirium tremens. At the time of my brief interview, the patient's speech was slurred, with incomplete words and thoughts. We did not observe her gait. Provisional Treatment Plan: 1. The patient is delirious, currently reporting visual hallucinations, and cannot leave AMA while in this state. 2. Continue treatment for alcohol withdrawal, reducing lorazepam at a safe daily rate, usually 20% per day. 3. If LFT worsen, consider changing to an alternate to carbemazepine, which she takes for seizure disorder and mood stabilization. Neurology has discussed this with the medical team, and mentioned Vimpat as a possibility. 4. Social work consult to help with discharge planning. 5. I have ordered haloperidol 1 mg PO every 6 hours scheduled for delirium. The patient did not respond to the first 1 mg dose. Another one-time dose of 1 mg was ordered, and the original order was changed to 2 mg PO every 6 hours. a. Hold for oversedation or respiratory depression b. Hold for arrhythmia or QTc greater than 475 mS. 6. I have ordered haloperidol 2 mg PO (Use IM, if patient unable to take PO), every 8 hours, as needed, for dangerous or severe agitation. a. Hold for oversedation or respiratory depression b. Hold for arrhythmia or QTc greater than 475 mS. 7. Please consider ordering an ammonia level to r/o hepatic encephalopathy. 8. The patient will need to come to an IOP, or rehab, after discharge, where any underlying anxiety or depression, if present, can be addressed. 9. Please continue thiamine therapy by mouth or IV after the banana bags have finished. We will continue to follow along with you. Thank you for asking us to participate in Julianne's care. Shayne Be APRN, pager [phone].
--- NOTE | 2016-05-22 16:44 | Event Note ---
Event Note Event Note: Discussed with neuro, Dr. Suarez, regarding possibility of taking patient off carbamezipine given elevated LFT. He does not recommend relying on ativan for seizure control as it is not the medication of choice to manage seizure. Keep in mind that carbamazepine also has mood stabilizing property. If we want to switch her, he recommends vimpat 200 mg (loading dose), followed by 100 mg BID, while keeping the carbamezipine on for another 24 hours. If further neuro input is required, please consult neurology formally.
[2016-05-23] VITALS (12 sets, daily range): BP systolic 100–140; BP diastolic 59–88
--- NOTE | 2016-05-23 07:38 | PN- Resident CRCU ---
Subjective HPI/CRCU Issues: Pt seen today, she is on ativan drip, sedated but arousable. On BL UE restrains for pulling out IV lines. Last night she also needed jae for unsafe ambulation. Phos low at 1.3, neutrophos already ordered. mg 1.6. hb 11.1 to 10.6, platelet 91 to 103, ast 404 to 233, alt 177 to 138, t bili 2.4 to 2.3. 24 hr data: max temp 99.9 MI 97-115 RR20-33 systolic bp 92-121 diastolic bp 60-85 2L nC CIWA 10-20but she is on ativan drip Objective Vital Signs & I&O Last 8 Hrs of Vitals and I&O: Intake & Output 05/23 1600 05/23 0800 05/23 0000 Intake Total 1228 2255 Output Total 700 Balance 1228 1555 Intake, IV 1128 1615 Intake, Oral 100 640 Number 0 2 Bowel Movements Output, Urine 700 Laboratory Tests 05/23 05/22 0300 1730 Chemistry Sodium (137 - 145 mmol/L) 139 Potassium (3.5 - 5.1 mmol/L) 4.1 Chloride (98 - 107 mmol/L) 109 H Carbon Dioxide (22 - 30 mmol/L) 22 Anion Gap (5 - 16) 8 BUN (7 - 17 mg/dL) < 2 L Creatinine (0.5 - 1.0 mg/dL) 0.4 L Estimated GFR (>60 ml/min) > 60 Glucose (65 - 99 mg/dL) 92 Calcium (8.4 - 10.2 mg/dL) 7.2 L Phosphorus (2.5 - 4.5 mg/dL) 1.3 L Magnesium (1.6 - 2.3 mg/dL) 1.6 Total Bilirubin (0.2 - 1.3 mg/dL) 2.3 H AST (14 - 36 U/L) 233 H ALT (9 - 52 U/L) 138 H Ammonia (9 - 30 umol/L) 25 Albumin (3.5 - 5.0 g/dL) 2.6 L Laboratory Tests 05/23/16 0300: Anion Gap 8, Estimated GFR > 60, Glucose 92, Calcium 7.2 L, Phosphorus 1.3 L, Magnesium 1.6, Total Bilirubin 2.3 H, AST 233 H, ALT 138 H, Albumin 2.6 L 05/22/16 1730: Ammonia 25 Microbiology Date/Time Procedure - Status Source Growth 05/22 1340 Influenza Virus A & B Rapid Smear - COMP NASOPHARYN Vital Signs Date Time Temp Pulse Resp B/P Pulse O2 O2 Flow FiO2 Ox Delivery Rate 05/23 0810 96 111/75 05/23 0800 97.4 88 20 140/88 05/23 0800 98.4 88 20 140/88 98 Nasal 2.0L Cannula 05/23 0600 99.2 100 30 113/59 05/23 0400 99.2 94 24 110/64 05/23 0400 93 Nasal 2.0L Cannula 05/23 0200 99.0 98 24 115/78 05/23 0000 99.6 92 26 138/88 05/23 0000 98 Nasal 2.0L Cannula 05/23 0000 99.6 92 26 138/88 98 Nasal 2.0L Cannula 05/22 2200 99.0 92 24 95/74 05/22 2000 99.6 86 18 140/98 05/22 2000 99 Nasal 2.0L Cannula 05/22 1800 99.4 100 20 114/77 05/22 1600 99.0 109 22 110/68 05/22 1600 98 Nasal 2.0L Cannula 05/22 1600 99.0 109 22 110/68 96 Nasal 2.0L Cannula 05/22 1200 96 Nasal 2.0L Cannula Exam General Appearance: sedated Respiratory: wheezing Cardiovascular: regular rate/rhythm, tachycardia Gastrointestinal: normal bowel sounds, soft, non-tender Extremities: no edema Current Medications: Current Medications Sig/Carola Start time Last Medication Dose Route Stop Time Status Admin Carbamazepine 200 MG BID 05/21 1342 AC 05/23 PO 0816 Citalopram 20 MG DAILY 05/21 1342 AC 05/23 Hydrobromide PO 0816 Cyanocobalamin/ 1 BAG DAILY 05/21 1000 AC 05/22 Thiamine/Pyridoxine IV 05/23 1759 0908 Sodium Chloride 1,000 ML Ferrous Sulfate 325 MG DAILY 05/21 1343 AC 05/23 PO 0816 Folic Acid 1 MG DAILY 05/24 1000 AC PO 05/26 1001 Gabapentin 300 MG TID 05/21 1000 AC 05/23 PO 0817 Haloperidol 2 MG Q6 05/22 1800 AC 05/23 PO 0527 Haloperidol 1 MG ONE TIME ONE 05/22 1445 DC 05/22 PO 05/22 1446 1445 Haloperidol 2 MG Q8P PRN 05/22 1415 AC 05/23 PO 0300 Haloperidol 1 MG Q6 05/22 1401 DC 05/22 PO 1406 Ibuprofen 400 MG 4 TIMES/DAY PRN 05/21 0630 AC PO Lorazepam 100 MG Q8H 05/23 1100 AC Sodium Chloride 1,000 ML IV Lorazepam 100 MG Q7H 05/23 0300 DC 05/23 Sodium Chloride 1,000 ML IV 0300 Lorazepam 100 MG Q11H 05/22 1900 DC 05/22 Sodium Chloride 1,000 ML IV 2001 Lorazepam 2 MG ONE ONE 05/22 1830 DC IV 05/22 1831 Lorazepam 1 MG Q8 05/22 1400 CAN PO Lorazepam 50 MG Q24H 05/21 0515 DC 05/22 Sodium Chloride 500 ML IV 05/22 1859 0133 Magnesium Chloride 64 MG TID 05/23 1000 AC PO 05/24 1001 Metoprolol Succinate 50 MG DAILY 05/21 1000 AC 05/23 PO 0810 Multivitamins 1 TAB DAILY 05/24 1000 AC PO Nicotine 14 MG DAILY 05/21 1000 AC 05/23 TOP 0817 Omeprazole 40 MG DAILY AC 05/22 0946 AC 05/23 PO 0527 Oxycodone HCl 5 MG Q6 PRN 05/21 0630 AC PO Phosphate 250 MG PC AND AT BEDTIME 05/22 0900 AC 05/23 PO 0809 Potassium Chloride 20 MEQ BID 05/22 1000 DC 05/22 PO 05/22 2201 2132 Thiamine HCl 100 MG DAILY 05/24 1000 AC PO Thiamine HCl 500 MG TID 05/21 1000 AC 05/22 Sodium Chloride 100 ML IV 05/23 2302 2136 Impression/Plan Impression/Problem List Impression: This is 35-year-old female with past medical history of alcohol withdrawal seizure, asthma not on current medication, depression, anxiety, peripheral neuropathy. Presented to the emergency department requesting alcohol detox. Patient stated that she drink every day since 2016 until now, 6-7 cans of beer and hard liquor, patient stated that she was super for 1-1/2 month in the beginning of 2015 after that she restart drinking again, last drink was prior admission. She was admitted to ICU yesterday, started on Ativan drip. We are currently monitoring for the following conditions.: Alcohol withdrawal : Patient currently on Ativan drip CIWA in last 24 hours 10-20 Thiamine/folic acid/MV Psychiatry consult has been placed, with follow-up recommendations. Haldol for agitation On restrains Respiratory; Patient was wheezing upon presentation, improved, remains on 2 L of nasal cannula oxygen, satting in the 90s, TRC to continue Aspiration precaution as pt sedated Baseline CXR obtained Infectious disease: No issues. White count stable. Cardiovascular: No issues, heart rate and blood pressure has been in normal limits. Gastrointestinal: Alcoholic Transaminitis: Elevated LFTs upon presentation, likely secondary to alcohol consumption. Patient will need close outpatient follow-up for further management. Diarrhea : Patient presented with diarrhea, likely secondary to chronic alcohol consumption and poor oral intake, episodes have been improved ever since admission. Will follow-up stool cultures, ova parasites Negative C. difficile. Patient tolerating by mouth intake well without any nausea or vomiting. Aspiration precautions while sedated. Renal: No issues, creatinine stable. Metabolic: Hypomagnesemia; Presented with magnesium level of 0.7, replaced, repeat levels 1.9, follow repeat labs, repeat as needed. Hypokalemia: Levels upon presentation to 3.7, replaced repeat levels improved, follow repeat labs, repeat as needed. Hypophosphatemia: Replaced,follow repeat labs, repeat as needed. DVT prophylaxis: ALPS Pain pathway Patient is full code. Problem List: 1. Alcohol dependence Pain Ratin Tomorrow's Labs & Rationales: icu cbc metabolic derangement, thrombocytopenia Plan DVT/Prophylaxis: mechanical
--- NOTE | 2016-05-23 11:17 | PN- CRCU ---
See Addendum Subjective HPI/Critical Care Issues: pt seen and examined still on ativan 8/hr no new events hemodynamics are stable afebrile arousable but sedated Objective Current Medications: Current Medications Sig/Carola Start time Last Medication Dose Route Stop Time Status Admin Carbamazepine 200 MG BID 05/21 1342 AC 05/23 PO 0816 Citalopram 20 MG DAILY 05/21 1342 AC 05/23 Hydrobromide PO 0816 Cyanocobalamin/ 1 BAG DAILY 05/21 1000 AC 05/22 Thiamine/Pyridoxine IV 05/23 1759 0908 Sodium Chloride 1,000 ML Ferrous Sulfate 325 MG DAILY 05/21 1343 AC 05/23 PO 0816 Folic Acid 1 MG DAILY 05/24 1000 AC PO 05/26 1001 Gabapentin 300 MG TID 05/21 1000 AC 05/23 PO 0817 Haloperidol 2 MG Q6 05/22 1800 AC 05/23 PO 0527 Haloperidol 1 MG ONE TIME ONE 05/22 1445 DC 05/22 PO 05/22 1446 1445 Haloperidol 2 MG Q8P PRN 05/22 1415 AC 05/23 PO 0300 Haloperidol 1 MG Q6 05/22 1401 DC 05/22 PO 1406 Ibuprofen 400 MG 4 TIMES/DAY PRN 05/21 0630 AC PO Lorazepam 100 MG Q8H 05/23 1100 AC Sodium Chloride 1,000 ML IV Lorazepam 100 MG Q7H 05/23 0300 DC 05/23 Sodium Chloride 1,000 ML IV 0300 Lorazepam 100 MG Q11H 05/22 1900 DC 05/22 Sodium Chloride 1,000 ML IV 2001 Lorazepam 2 MG ONE ONE 05/22 1830 DC IV 05/22 1831 Lorazepam 1 MG Q8 05/22 1400 CAN PO Lorazepam 50 MG Q24H 05/21 0515 DC 05/22 Sodium Chloride 500 ML IV 05/22 1859 0133 Magnesium Chloride 64 MG TID 05/23 1000 DC PO 05/24 1001 Magnesium Sulfate 1 GM ONCE ONE 05/23 1030 AC Dextrose/Water 100 ML IV 05/23 1429 Metoprolol Succinate 50 MG DAILY 05/21 1000 AC 05/23 PO 0810 Multivitamins 1 TAB DAILY 05/24 1000 AC PO Nicotine 14 MG DAILY 05/21 1000 AC 05/23 TOP 0817 Omeprazole 40 MG DAILY AC 05/22 0946 AC 05/23 PO 0527 Oxycodone HCl 5 MG Q6 PRN 05/21 0630 AC PO Phosphate 250 MG PC AND AT BEDTIME 05/22 0900 AC 05/23 PO 0809 Potassium Chloride 20 MEQ BID 05/22 1000 DC 05/22 PO 05/22 2201 2132 Thiamine HCl 100 MG DAILY 05/24 1000 AC PO Thiamine HCl 500 MG TID 05/21 1000 AC 05/22 Sodium Chloride 100 ML IV 05/23 2302 2136 Vital Signs & I&O Last 24 Hrs of Vitals and I&O: Vital Signs Date Time Temp Pulse Resp B/P Pulse O2 O2 Flow FiO2 Ox Delivery Rate 05/23 1000 97 20 112/70 05/23 809 96 111/75 05/24 799 97.4 88 20 140/88 05/23 08 98.4 88 20 140/88 98 Nasal 2.0L Cannula 05/24 799 98 Nasal 2.0L Cannula 05/23 599 99.2 100 30 113/59 05/23 0400 99.2 94 24 110/64 05/23 0400 93 Nasal 2.0L Cannula 05/23 0200 99.0 98 24 115/78 05/23 0000 99.6 92 26 138/88 05/23 0000 98 Nasal 2.0L Cannula 05/23 0000 99.6 92 26 138/88 98 Nasal 2.0L Cannula 05/22 2200 99.0 92 24 95/74 05/22 2000 99.6 86 18 140/98 05/22 2000 99 Nasal 2.0L Cannula 05/22 1800 99.4 100 20 114/77 05/22 1600 99.0 109 22 110/68 05/22 1600 98 Nasal 2.0L Cannula 05/22 1600 99.0 109 22 110/68 96 Nasal 2.0L Cannula 05/22 1200 96 Nasal 2.0L Cannula Intake & Output 05/23 1600 08 0800 05/23 0000 Intake Total 1228 2255 Output Total 700 Balance 1228 1555 Intake, IV 1128 1615 Intake, Oral 100 640 Number 0 2 Bowel Movements Output, Urine 700 Exam Other Physical Findings: Generally - arousable/sedated Head and neck - normocephalic, atraumatic, EOMI grossly intact Cardiovascular - S1, S2, no murmurs, rubs or gallops Lungs - Wheezing Abdomen - Bowel sounds positive, soft, non-tender Extremities - without edema Results Last 24 Hrs of Lab Results: Laboratory Tests 05/23/16 0300: Anion Gap 8, Estimated GFR > 60, Glucose 92, Calcium 7.2 L, Phosphorus 1.3 L, Magnesium 1.6, Total Bilirubin 2.3 H, AST 233 H, ALT 138 H, Albumin 2.6 L 05/22/16 1730: Ammonia 25 Impression/Plan Impression/Plan Impression/Plan: Impression 35 year old woman * EtOH withdrawal and dependence * Improved transaminitis * History of seizures - stable * Hypophosphatemia * Hypocalcemia * Hypomagnesemia * Thrombocytopenia - EtOH related Plan - ativan drip continue to CIWA protocol - aggressively replete mag and phos to goal 2 and 4 respectively - MVI, thiamine, folate - monitor electrolytes - Carbamazepine for seizure prophylaxis - history of seizures - CXR for baseline DVT prophylaxis at all times - ALPS - no a/c secondary to thrombocytopenia TTS 35 min
--- NOTE | 2016-05-23 14:18 | RADIOLOGY REPORT ---
EXAMINATION: XR PORTABLE CHEST CLINICAL INFORMATION: Wheezing COMPARISON: 02/21/2011 TECHNIQUE: Portable AP view of the chest was obtained. FINDINGS: The lung volumes are relatively low. There is crowding of the central vascular structures. The cardiac silhouette appears within normal range for size. There is mild widening of the upper mediastinum possibly related to positioning. There is a hazy opacity projecting over the left heart apex. There is partial obscuration of the left hemidiaphragm. The left upper and right upper lobes appear grossly clear. There are areas of subsegmental atelectasis at the right lung base. There may be a small left pleural effusion. No definite right pleural effusion. IMPRESSION: Limited study secondary to technical factors and hypoventilation. Findings suspicious for left lower lobe pneumonia. There may be a small associated effusion.
[2016-05-24] VITALS (8 sets, daily range): BP systolic 102–127; BP diastolic 62–81
[2016-05-24 05:18] LABS: ABSOLUTE BASOPHIL COUNT 0 /CUMM (0.0-0.2); ABSOLUTE EOSINOPHIL COUNT 0.1 /CUMM (0.0-0.7); ABSOLUTE GRANULOCYTE CT 4.2 /CUMM (1.4-6.5); ABSOLUTE LYMPH COUNT 1.6 /CUMM (1.2-3.4); ABSOLUTE MONOCYTE COUNT 0.8 /CUMM (0.10-0.60); BASOPHIL % 0.4 % (0.0-2.0); EOSINOPHIL % 1.2 % (0-5); GRANULOCYTE % 61.8 % (42.2-75.2); HEMATOCRIT 30.8 % (37-47); MEAN CORPUSCULAR HGB 34.4 PG (27.0-31.0); MEAN CORPUSCULAR HGB CONC 33.5 G/DL (33.0-37.0); MEAN CORPUSCULAR VOLUME 102.8 FL (81.0-99.0); MEAN PLATELET VOLUME 9.3 FL (7.4-10.4); PLATELET COUNT 134 /CUMM (130-400); RBC DISTRIBUTION WIDTH 15.7 % (11.5-14.5); RED BLOOD CELL CT 2.99 /CUMM (4.20-5.40); WHITE BLOOD CELL COUNT 6.8 /CUMM (4.8-10.8)
--- NOTE | 2016-05-24 08:20 | PN- Resident CRCU ---
Subjective HPI/CRCU Issues: Patient seen and examined this morning. She was lying in bed in no acute distress. Remains on Ativan drip currently at 4, blood pressure systolic has been ranging between 100 to 130, MAXIMUM TEMPERATURE 100.4, remains on 2 L nasal cannula oxygen satting in high 90s. Ammonia levels was 54, patient started on lactulose 20 g 3 times a day. RUQ US was done which showed mildly enlarged liver with hepatic steatosis. Objective Vital Signs & I&O Last 8 Hrs of Vitals and I&O: Laboratory Tests 05/24/16 1142: Ammonia 54 H 05/24/16 0425: Anion Gap 8, Estimated GFR > 60, Glucose 101 H, Calcium 6.9 L, Phosphorus 2.7, Magnesium 1.7, Total Bilirubin 2.6 H, Direct Bilirubin 1.4 H, AST 166 H, ALT 111 H, Albumin 2.6 L, CBC w Diff NO MAN DIFF REQ, RBC 2.99 L, MCV 102.8 H, MCH 34.4 H, RDW 15.7 H, MPV 9.3, Gran % 61.8, Lymphocytes % 24.3, Monocytes % 12.3 H, Eosinophils % 1.2, Basophils % 0.4, Absolute Granulocytes 4.2, Absolute Lymphocytes 1.6, Absolute Monocytes 0.8 H, Absolute Eosinophils 0.1, Absolute Basophils 0, PUBS MCHC 33.5 05/23/16 1600: Anion Gap 10, Estimated GFR > 60, Glucose 88, Calcium 7.0 L, Phosphorus 3.0, Magnesium 1.9, Total Bilirubin 2.4 H, AST 190 H, ALT 127 H, Albumin 2.6 L Vital Signs Date Time Temp Pulse Resp B/P Pulse O2 O2 Flow FiO2 Ox Delivery Rate 05/24 1356 96 Nasal 2.0L Cannula 05/24 1200 97 Nasal 2.0L Cannula 05/24 0915 92 109/77 05/24 0800 99.6 93 23 110/78 97 Nasal 2.0L Cannula 05/24 0800 97 Nasal 2.0L Cannula 05/24 0600 96 22 127/81 05/24 0400 100.4 97 24 112/69 05/24 0400 95 Nasal 2.0L Cannula 05/24 0200 92 22 104/68 05/24 0000 100.5 92 20 126/80 05/24 0000 96 Nasal 2.0L Cannula 05/24 0000 100.5 92 20 126/80 96 Nasal 2.0L Cannula 05/23 2228 95 Room Air Room Air 05/23 2200 88 22 100/76 05/23 2000 98.9 95 20 126/70 05/23 2000 95 Nasal 2.0L Cannula 05/23 1800 94 20 113/73 05/23 1600 98.0 88 16 112/70 05/23 1600 94 Nasal 2.0L Cannula 05/23 1600 98.0 88 16 11270 94 Nasal 2.0L Cannula Intake & Output 05/24 1600 05/24 0800 05/24 0000 Intake Total 968 368 0066 Output Total Balance 840 779 2158 Intake, IV 320 2350 Intake, Oral 160 857 Number 0 0 Bowel Movements Patient 77.167 kg Weight Intake & Output 05/24 1600 Intake Total 480 Output Total Balance 480 Intake, IV 320 Intake, Oral 160 Number 0 Bowel Movements Patient 77.167 kg Weight Exam General Appearance: well developed/nourished, no apparent distress, sedated, lethargic Cardiovascular: regular rate/rhythm Gastrointestinal: normal bowel sounds Extremities: normal inspection Current Medications: Current Medications Sig/Carola Start time Last Medication Dose Route Stop Time Status Admin Albuterol Sulfate 3 ML Q4H PRN 05/23 1130 AC 05/23 INH 1136 Carbamazepine 200 MG BID 05/21 1342 AC 05/24 PO 0915 Chlordiazepoxide HCl 50 MG Q6 05/24 1200 AC 05/24 PO 1159 Citalopram 20 MG DAILY 05/21 1342 AC 05/24 Hydrobromide PO 0914 Cyanocobalamin/ 1 BAG DAILY 05/21 1000 DC 05/23 Thiamine/Pyridoxine IV 05/23 1759 1233 Sodium Chloride 1,000 ML Ferrous Sulfate 325 MG DAILY 05/21 1343 AC 05/24 PO 0914 Folic Acid 1 MG DAILY 05/24 1000 AC 05/24 PO 05/26 1001 0915 Gabapentin 300 MG TID 05/21 1000 AC 05/24 PO 0915 Haloperidol 2 MG Q6 05/22 1800 DC 05/23 PO 1827 Haloperidol 2 MG Q8P PRN 05/22 1415 DC 05/23 PO 0300 Ibuprofen 400 MG 4 TIMES/DAY PRN 05/21 0630 AC PO Lactulose 20 GM TID 05/24 1600 AC PO Lorazepam 100 MG Q10H 05/23 2200 AC 05/23 Sodium Chloride 1,000 ML IV 2245 Lorazepam 100 MG Q8H 05/23 1100 DC 05/23 Sodium Chloride 1,000 ML IV 05/23 2159 1233 Magnesium Oxide 400 MG BID 05/24 1000 AC 05/24 PO 05/24 2201 0915 Metoprolol Succinate 50 MG DAILY 05/21 1000 AC 05/24 PO 0915 Multivitamins 1 TAB DAILY 05/24 1000 AC 05/24 PO 0915 Nicotine 14 MG DAILY 05/21 1000 AC 05/24 TOP 0915 Omeprazole 40 MG DAILY AC 05/22 0946 AC 05/24 PO 0916 Oxycodone HCl 5 MG Q6 PRN 05/21 0630 AC PO Phosphate 250 MG PC AND AT BEDTIME 05/24 09 CAN PO 05/24 1301 Phosphate 250 MG PC AND AT BEDTIME 05/22 0900 AC 05/24 PO 0914 Potassium Phosphate 15 mMol ONE ONE 05/23 1745 DC 05/23 Sodium Chloride 250 ML IV 05/23 2148 2029 Sodium Chloride 2 SPRAY Q4 HRS NEEDED PRN 05/24 0845 AC ZENA Sodium Phosphate 15 mMol ONE ONE 05/23 1130 DC 05/23 Sodium Chloride 250 ML IV 05/23 1533 1249 Thiamine HCl 100 MG DAILY 05/24 1000 AC 05/24 PO 0916 Thiamine HCl 500 MG TID 05/21 1000 DC 05/23 Sodium Chloride 100 ML IV 05/23 2304 2216 Impression/Plan Impression/Problem List Impression: This is 35-year-old female with past medical history of alcohol withdrawal seizure, asthma not on current medication, depression, anxiety, peripheral neuropathy. Presented to the emergency department requesting alcohol detox. Patient stated that she drink every day since 2016 until now, 6-7 cans of beer and hard liquor, patient stated that she was super for 1-1/2 month in the beginning of 2016 after that she restart drinking again, last drink was prior admission. She was admitted to ICU , started on Ativan drip. We are currently monitoring for the following conditions.: Alcohol withdrawal : Patient currently on Ativan drip running at 5mcg per hour CIWA in last 24 hours Librium 50mg q6 added with holding parameters Thiamine/folic acid/MV Psychiatry on board, follow-up recommendations. Respiratory; Patient was wheezing upon presentation, improved, remains on 2 L of nasal cannula oxygen, satting in the 90s, TRC to continue Infectious disease: No issues, MAXIMUM TEMPERATURE of 100.4 last night. White count stable. Cardiovascular: No issues, heart rate and blood pressure has been in normal limits. Gastrointestinal: Alcoholic Transaminitis: Elevated LFTs upon presentation, likely secondary to alcohol consumption. Ammonia 54, lactulose ordered, will follow repeat levels tomoro Patient will need close outpatient follow-up for further management. Diarrhea : Patient presented with diarrhea, likely secondary to chronic alcohol consumption and poor oral intake, episodes have been improved ever since admission. Will follow-up stool cultures, ova parasites, C. difficile. Patient tolerating by mouth intake well without any nausea or vomiting. Renal: No issues, creatinine stable. Metabolic: Hypomagnesemia; Resolved, replete as needed. Hypokalemia: Resolved, replete as needed. Hypophosphatemia: Replaced,follow repeat labs, repeat as needed. DVT prophylaxis: ALPS Pain pathway Patient is full code. Problem List: 1. Transaminitis 2. Alcoholic liver disease 3. POLYSUBSTANCE ABUSE 4. Alcohol dependence with acute alcoholic intoxication Pain Ratin Tomorrow's Labs & Rationales: icu bundle cbc ammonia Plan DVT/Prophylaxis: mechanical
--- NOTE | 2016-05-24 09:48 | PN- CRCU ---
Subjective HPI/Critical Care Issues: pt seen and examined remains on ativan drip ros limited, pt lethargic Objective Current Medications: Current Medications Sig/Carola Start time Last Medication Dose Route Stop Time Status Admin Albuterol Sulfate 3 ML Q4H PRN 05/23 1130 AC 05/23 INH 1136 Carbamazepine 200 MG BID 05/21 1342 AC 05/24 PO 0915 Citalopram 20 MG DAILY 05/21 1342 AC 05/24 Hydrobromide PO 0914 Cyanocobalamin/ 1 BAG DAILY 05/21 1000 DC 05/23 Thiamine/Pyridoxine IV 05/23 1759 1233 Sodium Chloride 1,000 ML Ferrous Sulfate 325 MG DAILY 05/21 1343 AC 05/24 PO 0914 Folic Acid 1 MG DAILY 05/24 1000 AC 05/24 PO 05/26 1001 0915 Gabapentin 300 MG TID 05/21 1000 AC 05/24 PO 0915 Haloperidol 2 MG Q6 05/22 1800 AC 05/23 PO 1827 Haloperidol 2 MG Q8P PRN 05/22 1415 AC 05/23 PO 0300 Ibuprofen 400 MG 4 TIMES/DAY PRN 05/21 0630 AC PO Lorazepam 100 MG Q10H 05/23 2200 AC 05/23 Sodium Chloride 1,000 ML IV 2245 Lorazepam 100 MG Q8H 05/23 1100 DC 05/23 Sodium Chloride 1,000 ML IV 05/23 2159 1233 Magnesium Chloride 64 MG TID 05/23 1000 DC PO 05/24 1001 Magnesium Oxide 400 MG BID 05/24 1000 AC 05/24 PO 05/24 2201 0915 Magnesium Sulfate 1 GM ONCE ONE 05/23 1030 DC 05/23 Dextrose/Water 100 ML IV 05/23 1429 1100 Metoprolol Succinate 50 MG DAILY 05/21 1000 AC 05/24 PO 0915 Multivitamins 1 TAB DAILY 05/24 1000 AC 05/24 PO 0915 Nicotine 14 MG DAILY 05/21 1000 AC 05/24 TOP 0915 Omeprazole 40 MG DAILY AC 05/22 0946 AC 05/24 PO 0916 Oxycodone HCl 5 MG Q6 PRN 05/21 0630 AC PO Phosphate 250 MG PC AND AT BEDTIME 05/24 0900 CAN PO 05/24 1301 Phosphate 250 MG PC AND AT BEDTIME 05/22 0900 AC 05/24 PO 0914 Potassium Phosphate 15 mMol ONE ONE 05/23 1745 DC 05/23 Sodium Chloride 250 ML IV 05/23 2148 9 Sodium Chloride 2 SPRAY Q4 HRS NEEDED PRN 05/24 0845 AC ZENA Sodium Phosphate 15 mMol ONE ONE 05/23 1130 DC 05/23 Sodium Chloride 250 ML IV 05/23 1533 1249 Thiamine HCl 100 MG DAILY 05/24 1000 AC 05/24 PO 0916 Thiamine HCl 500 MG TID 05/21 1000 DC 05/23 Sodium Chloride 100 ML IV 05/23 2304 2216 Vital Signs & I&O Last 24 Hrs of Vitals and I&O: Vital Signs Date Time Temp Pulse Resp B/P Pulse O2 O2 Flow FiO2 Ox Delivery Rate 05/24 914 92 109/77 05/25 799 99.6 93 23 110/78 97 Nasal 2.0L Cannula 05/24 08 97 Nasal 2.0L Cannula 05/24 0600 96 22 127/81 05/24 0400 100.4 97 24 112/69 05/24 0400 95 Nasal 2.0L Cannula 05/24 0200 92 22 104/68 05/24 0000 100.5 92 20 126/80 05/24 0000 96 Nasal 2.0L Cannula 05/24 0000 100.5 92 20 126/80 96 Nasal 2.0L Cannula 05/23 2228 95 Room Air Room Air 05/23 2200 88 22 100/76 05/23 2000 98.9 95 20 126/70 05/23 2000 95 Nasal 2.0L Cannula 05/23 1800 94 20 113/73 05/23 1600 98.0 88 16 112/70 05/23 1600 94 Nasal 2.0L Cannula 05/23 1600 98.0 88 16 11270 94 Nasal 2.0L Cannula 05/23 1400 90 24 103/71 05/23 1200 98.3 98 24 118/80 05/23 1200 96 Nasal 2.0L Cannula 05/23 1129 97 Nasal 2.0L Cannula 05/23 1000 97 20 112/70 Intake & Output 05/24 1600 05/24 0800 05/24 0000 Intake Total 857 2350 Output Total Balance 857 2350 Intake, IV 2350 Intake, Oral 857 Number 0 Bowel Movements Patient 170 lb Weight Exam Other Physical Findings: Generally - arousable/sedated Head and neck - normocephalic, atraumatic, EOMI grossly intact Cardiovascular - S1, S2, no murmurs, rubs or gallops Lungs - Wheezing Abdomen - Bowel sounds positive, soft, non-tender Extremities - without edema Results Last 24 Hrs of Lab Results: Laboratory Tests 05/24/16 0425: Anion Gap 8, Estimated GFR > 60, Glucose 101 H, Calcium 6.9 L, Phosphorus 2.7, Magnesium 1.7, Total Bilirubin 2.6 H, Direct Bilirubin 1.4 H, AST 166 H, ALT 111 H, Albumin 2.6 L, CBC w Diff NO MAN DIFF REQ, RBC 2.99 L, MCV 102.8 H, MCH 34.4 H, RDW 15.7 H, MPV 9.3, Gran % 61.8, Lymphocytes % 24.3, Monocytes % 12.3 H, Eosinophils % 1.2, Basophils % 0.4, Absolute Granulocytes 4.2, Absolute Lymphocytes 1.6, Absolute Monocytes 0.8 H, Absolute Eosinophils 0.1, Absolute Basophils 0, PUBS MCHC 33.5 05/23/16 1600: Anion Gap 10, Estimated GFR > 60, Glucose 88, Calcium 7.0 L, Phosphorus 3.0, Magnesium 1.9, Total Bilirubin 2.4 H, AST 190 H, ALT 127 H, Albumin 2.6 L Impression/Plan Impression/Plan Impression/Plan: Impression 35 year old woman * EtOH withdrawal and dependence * Improved transaminitis * History of seizures - stable * Hypophosphatemia * Hypocalcemia * Hypomagnesemia * Thrombocytopenia - EtOH related Plan - ativan drip continue to CIWA protocol - add librium 50mg po q6h with holding parameters with a goal to reduce and dc ativan drip - aggressively replete mag and phos to goal 2 and 4 respectively - MVI, thiamine, folate - monitor electrolytes - Carbamazepine for seizure prophylaxis - history of seizures - check hepatitis panel/ammonia/RUQ sono DVT prophylaxis at all times - ALPS - no a/c secondary to thrombocytopenia TTS 35 min
--- NOTE | 2016-05-24 14:00 | ULTRASOUND REPORT ---
EXAMINATION: US ABDOMEN LIMITED CLINICAL INFORMATION: Elevated LFTs. COMPARISON: None TECHNIQUE: Bedside sonography of the right upper quadrant is performed FINDINGS: PANCREAS: The pancreas is nonvisualized and is completely obscured by gas LIVER: The liver is enlarged and diffusely echogenic. This would be consistent with hepatic steatosis. It is difficult to penetrate. No focal liver masses are defined. No intrahepatic biliary ductal dilatation is seen.. GALLBLADDER: The gallbladder is incompletely distended. It is not known if the patient is fasting. There is no stone, gallbladder wall thickening or edema.. There is no pericholecystic fluid COMMON BILE DUCT: Normal in caliber measuring 0.6 cm in diameter. RIGHT KIDNEY: The right kidney measures 10.7 cm longitudinally. Renal cortical thickness and echogenicity is within normal limits. There is no hydronephrosis or hydroureter. There is no apparent mass or stone. Detail is limited.. FREE FLUID: No free fluid or loculated fluid collection is seen in the right upper quadrant IMPRESSION: The liver is moderately enlarged and echogenic consistent with hepatic steatosis. Penetration of the liver is limited but no focal liver lesions are appreciated. No other findings.
[2016-05-25] VITALS (12 sets, daily range): BP systolic 100–167; BP diastolic 60–88
[2016-05-25 04:52] LABS: ABSOLUTE BASOPHIL COUNT 0 /CUMM (0.0-0.2); ABSOLUTE EOSINOPHIL COUNT 0.1 /CUMM (0.0-0.7); ABSOLUTE GRANULOCYTE CT 3.5 /CUMM (1.4-6.5); ABSOLUTE LYMPH COUNT 1.8 /CUMM (1.2-3.4); ABSOLUTE MONOCYTE COUNT 0.7 /CUMM (0.10-0.60); BASOPHIL % 0.4 % (0.0-2.0); EOSINOPHIL % 1.6 % (0-5); GRANULOCYTE % 57.2 % (42.2-75.2); HEMATOCRIT 31.5 % (37-47); MEAN CORPUSCULAR HGB 34.3 PG (27.0-31.0); MEAN CORPUSCULAR HGB CONC 33.3 G/DL (33.0-37.0); MEAN CORPUSCULAR VOLUME 103.2 FL (81.0-99.0); MEAN PLATELET VOLUME 9.8 FL (7.4-10.4); PLATELET COUNT 151 /CUMM (130-400); RBC DISTRIBUTION WIDTH 15.9 % (11.5-14.5); RED BLOOD CELL CT 3.05 /CUMM (4.20-5.40); WHITE BLOOD CELL COUNT 6.2 /CUMM (4.8-10.8)
--- NOTE | 2016-05-25 07:36 | PN- Resident CRCU ---
Subjective HPI/CRCU Issues: Patient seen and examined this morning. She is lying comfortably in bed in no acute distress. more awake today. No complaints of nausea, vomiting, abdominal pain. Denies any tremors, hallucinations. Ammonia found to be 54 yesterday, patient given lactulose as she couldn't take by mouth enemas were ordered. Today she is more awake we'll try to give her by mouth lactulose, right upper quadrant ultrasound showed evidence of moderately enlarged liver, GI to see the patient today. Objective Vital Signs & I&O Last 8 Hrs of Vitals and I&O: Laboratory Tests 05/25/16 0415: Anion Gap 9, Estimated GFR > 60, Glucose 88, Calcium 7.3 L, Phosphorus 2.3 L, Magnesium 1.9, Total Bilirubin 1.5 H, AST 103 H, ALT 87 H, Ammonia 49 H, Albumin 2.6 L, CBC w Diff NO MAN DIFF REQ, RBC 3.05 L, MCV 103.2 H, MCH 34.3 H, RDW 15.9 H, MPV 9.8, Gran % 57.2, Lymphocytes % 29.6, Monocytes % 11.2 H, Eosinophils % 1.6, Basophils % 0.4, Absolute Granulocytes 3.5, Absolute Lymphocytes 1.8, Absolute Monocytes 0.7 H, Absolute Eosinophils 0.1, Absolute Basophils 0, PUBS MCHC 33.3 05/24/16 1142: Ammonia 54 H Vital Signs Date Time Temp Pulse Resp B/P Pulse O2 O2 Flow FiO2 Ox Delivery Rate 05/25 0936 98.9 93 20 112/78 05/25 0600 99.1 60 16 167/83 05/25 0400 99.1 86 18 138/88 05/25 0400 97 Nasal 3.0L Cannula 05/25 0200 99.3 79 16 126/86 05/25 0000 99.3 93 18 116/70 05/25 0000 95 Nasal 3.0L Cannula 05/24 2200 100.3 82 18 112/74 05/24 2200 99.3 87 18 110/62 96 Nasal 3.0L Cannula 05/25 1999 100.3 92 18 102/73 05/24 2000 95 Nasal 3.0L Cannula 05/24 1713 94 Nasal 3.0L Cannula 05/24 1600 99.8 94 17 120/70 94 Nasal 3.0L Cannula 05/24 1600 94 Nasal 3.0L Cannula 05/24 1430 95 Nasal 3.0L Cannula 05/24 1356 96 Nasal 2.0L Cannula 05/24 1200 97 Nasal 2.0L Cannula Intake & Output 05/25 1600 05/25 0800 05/25 0000 Intake Total Output Total Balance Number 4 1 Bowel Movements Exam General Appearance: well developed/nourished, no apparent distress, lethargic Respiratory: normal breath sounds Cardiovascular: regular rate/rhythm Gastrointestinal: normal bowel sounds, non-tender, distended Extremities: normal inspection, no edema Current Medications: Current Medications Sig/Carola Start time Last Medication Dose Route Stop Time Status Admin Albuterol Sulfate 3 ML Q4H PRN 05/23 1130 AC 05/24 INH 1330 Carbamazepine 200 MG BID 05/21 1342 AC 05/25 PO 0936 Chlordiazepoxide HCl 50 MG Q6 05/24 1200 AC 05/24 PO 1159 Citalopram 20 MG DAILY 05/21 1342 AC 05/25 Hydrobromide PO 0936 Ferrous Sulfate 325 MG DAILY 05/21 1343 AC 05/25 PO 0936 Folic Acid 1 MG DAILY 05/24 1000 AC 05/25 PO 05/26 1001 0936 Gabapentin 300 MG TID 05/21 1000 AC 05/25 PO 0936 Ibuprofen 400 MG 4 TIMES/DAY PRN 05/21 0630 AC PO Lactulose 20 GM TID 05/25 1000 AC 05/25 PO 0936 Lactulose 1 BOT Q6 05/24 1800 DC 05/25 IN 0526 Lactulose 20 GM TID 05/24 1600 DC PO Lorazepam 100 MG Q10H 05/23 2200 AC 05/23 Sodium Chloride 1,000 ML IV 2245 Magnesium Oxide 400 MG BID 05/24 1000 DC 05/24 PO 05/24 2201 0915 Magnesium Sulfate 1 GM ONCE ONE 05/25 0800 AC 05/25 Dextrose/Water 100 ML IV 05/25 1159 0839 Metoprolol Succinate 50 MG DAILY 05/21 1000 AC 05/25 PO 0936 Multivitamins 1 TAB DAILY 05/24 1000 AC 05/25 PO 0936 Nicotine 14 MG DAILY 05/21 1000 AC 05/25 TOP 0937 Omeprazole 40 MG DAILY AC 05/22 0946 AC 05/24 PO 0916 Oxycodone HCl 5 MG Q6 PRN 05/21 0630 AC PO Phosphate 250 MG PC AND AT BEDTIME 05/22 0900 AC 05/24 PO 0914 Potassium Phosphate 15 mMol ONE ONE 05/25 0800 AC 05/25 Sodium Chloride 250 ML IV 05/25 1203 0940 Sodium Chloride 2 SPRAY Q4 HRS NEEDED PRN 05/24 0945 AC ZENA Thiamine HCl 100 MG DAILY 05/24 1000 AC 05/25 PO 0936 Antibiotics Antibiotics? none Impression/Plan Impression/Problem List Impression: This is 35-year-old female with past medical history of alcohol withdrawal seizure, asthma not on current medication, depression, anxiety, peripheral neuropathy. Presented to the emergency department requesting alcohol detox. Patient stated that she drink every day since 2015 until now, 6-7 cans of beer and hard liquor, patient stated that she was super for 1-1/2 month in the beginning of 2015 after that she restart drinking again, last drink was prior admission. She was admitted to ICU , started on Ativan drip. We are currently monitoring for the following conditions.: Alcohol withdrawal : Patient currently on Ativan drip running at 5mcg per hour CIWA in last 24 hours 2-6. Librium 50mg q6 added with holding parameters Thiamine/folic acid/MV Psychiatry on board, follow-up recommendations. Respiratory; Patient was wheezing upon presentation, improved, remains on 2 L of nasal cannula oxygen, satting in the 90s, TRC to continue Infectious disease: No issues, MAXIMUM TEMPERATURE of 99.1 last night. White count stable. Cardiovascular: No issues, heart rate and blood pressure has been in normal limits. Gastrointestinal: Alcoholic Transaminitis: Elevated LFTs upon presentation, likely secondary to alcohol consumption. RUQ sono showed moderately enlarged liver. Ammonia 54, lactulose ordered, repeat levels improved GI to see the patient today. Diarrhea : Patient presented with diarrhea, likely secondary to chronic alcohol consumption and poor oral intake, episodes have been improved ever since admission. Will follow-up stool cultures, ova parasites, C. difficile. Patient tolerating by mouth intake well without any nausea or vomiting. Renal: No issues, creatinine stable. Metabolic: Hypomagnesemia; Resolved, replete as needed. Hypokalemia: Resolved, replete as needed. Hypophosphatemia: Replaced,follow repeat labs, repeat as needed. DVT prophylaxis: ALPS Pain pathway Patient is full code. Problem List: 1. Alcohol dependence with acute alcoholic intoxication 2. Transaminitis Pain Ratin Tomorrow's Labs & Rationales: cbc bep Plan DVT/Prophylaxis: pharmacological
--- NOTE | 2016-05-25 10:56 | PN- CRCU ---
Subjective HPI/Critical Care Issues: The patient is awake, alert and oriented. She has been off Ativan since yesterday afternoon, at 4 PM. She remains on Librium. Her ammonia level was elevated and she was put on lactulose. She is undergoing electrolyte repletion. Objective Current Medications: Current Medications Sig/Carola Start time Last Medication Dose Route Stop Time Status Admin Albuterol Sulfate 3 ML Q4H PRN 05/23 1130 AC 05/24 INH 1330 Carbamazepine 200 MG BID 05/21 1342 AC 05/25 PO 0936 Chlordiazepoxide HCl 50 MG Q6 05/24 1200 AC 05/24 PO 1159 Citalopram 20 MG DAILY 05/21 1342 AC 05/25 Hydrobromide PO 0936 Ferrous Sulfate 325 MG DAILY 05/21 1343 AC 05/25 PO 0936 Folic Acid 1 MG DAILY 05/24 1000 AC 05/25 PO 05/26 1001 0936 Gabapentin 300 MG TID 05/21 1000 AC 05/25 PO 0936 Ibuprofen 400 MG 4 TIMES/DAY PRN 05/21 0630 AC PO Lactulose 20 GM TID 05/25 1000 AC 05/25 PO 0936 Lactulose 1 BOT Q6 05/24 1800 DC 05/25 IN 0526 Lactulose 20 GM TID 05/24 1600 DC PO Lorazepam 100 MG Q10H 05/23 2200 AC 05/23 Sodium Chloride 1,000 ML IV 2245 Magnesium Oxide 400 MG BID 05/24 1000 DC 05/24 PO 05/24 2201 0915 Magnesium Sulfate 1 GM ONCE ONE 05/25 0800 AC 05/25 Dextrose/Water 100 ML IV 05/25 1159 0839 Metoprolol Succinate 50 MG DAILY 05/21 1000 AC 05/25 PO 0936 Multivitamins 1 TAB DAILY 05/24 1000 AC 05/25 PO 0936 Nicotine 14 MG DAILY 05/21 1000 AC 05/25 TOP 0937 Omeprazole 40 MG DAILY AC 05/22 0946 AC 05/24 PO 0916 Oxycodone HCl 5 MG Q6 PRN 05/21 0630 AC PO Phosphate 250 MG PC AND AT BEDTIME 05/22 0900 AC 05/24 PO 0914 Potassium Phosphate 15 mMol ONE ONE 05/25 0800 AC 05/25 Sodium Chloride 250 ML IV 05/25 1203 0940 Sodium Chloride 2 SPRAY Q4 HRS NEEDED PRN 05/24 0945 AC ZENA Thiamine HCl 100 MG DAILY 05/24 1000 AC 05/25 PO 0936 Vital Signs & I&O Last 24 Hrs of Vitals and I&O: Vital Signs Date Time Temp Pulse Resp B/P Pulse O2 O2 Flow FiO2 Ox Delivery Rate 05/26 935 98.9 93 20 112/78 05/25 0600 99.1 60 16 167/83 05/25 0400 99.1 86 18 138/88 05/25 0400 97 Nasal 3.0L Cannula 05/25 0200 99.3 79 16 126/86 05/25 0000 99.3 93 18 116/70 05/25 0000 95 Nasal 3.0L Cannula 05/24 2200 100.3 82 18 112/74 05/24 2200 99.3 87 18 110/62 96 Nasal 3.0L Cannula 05/24 2000 100.3 92 18 102/73 05/24 2000 95 Nasal 3.0L Cannula 05/24 1713 94 Nasal 3.0L Cannula 05/24 1600 99.8 94 17 120/70 94 Nasal 3.0L Cannula 05/24 1600 94 Nasal 3.0L Cannula 05/24 1430 95 Nasal 3.0L Cannula 05/24 1356 96 Nasal 2.0L Cannula 05/24 1200 97 Nasal 2.0L Cannula Intake & Output 05/25 1600 05/25 0800 05/25 0000 Intake Total Output Total Balance Number 4 1 Bowel Movements Exam General Appearance: awake, comfortable Head: atraumatic, normal appearance Neck: supple Respiratory: no respiratory distress, lungs clear Cardiovascular: regular rate/rhythm, normal peripheral pulses Abdomen: normal bowel sounds, soft, non-tender Extremities: no edema Skin: intact, normal color, warm/dry Results Last 24 Hrs of Lab Results: Laboratory Tests 05/25/16 0415: Anion Gap 9, Estimated GFR > 60, Glucose 88, Calcium 7.3 L, Phosphorus 2.3 L, Magnesium 1.9, Total Bilirubin 1.5 H, AST 103 H, ALT 87 H, Ammonia 49 H, Albumin 2.6 L, CBC w Diff NO MAN DIFF REQ, RBC 3.05 L, MCV 103.2 H, MCH 34.3 H, RDW 15.9 H, MPV 9.8, Gran % 57.2, Lymphocytes % 29.6, Monocytes % 11.2 H, Eosinophils % 1.6, Basophils % 0.4, Absolute Granulocytes 3.5, Absolute Lymphocytes 1.8, Absolute Monocytes 0.7 H, Absolute Eosinophils 0.1, Absolute Basophils 0, PUBS MCHC 33.3 05/24/16 1142: Ammonia 54 H Impression/Plan Impression/Plan Impression/Plan: 1. EtOH withdrawal, on Librium. 2. Transaminitis secondary to EtOH hepatitis. 3. Severe electrolyte abnormalities, undergoing repletion. 4. History of asthma and significant smoking history, no evidence of bronchospasm at present. 5. Stool colonized with VRE. 6. Thrombocytopenia secondary to EtOH. Recommendations: * Continue with electrolyte repletion. * Continue Librium, but hold for decreased sedation. * Continue multivitamin, thiamine and folate. * Continue with aggressive electrolyte repletion. * Start SQ heparin for DVT prophylaxis. * Psych input. * Continue all supportive care. * Downgrade to gen med.
--- NOTE | 2016-05-25 14:17 | Cons- Gastroenterology ---
General Information and HPI Consulting Request Date of Consult: 05/25/16 Requested By: CONNIE DOUGHERTY,ALEC Reason for Consult: Elevated ammonia level in the setting of alcoholic hepatitis, HD #6. Source of Information: patient, old records Exam Limitations: fair historian History of Present Illness: 35-year-old female, non-HTN, non-DM, with years of alcohol abuse and polysubstance abuse (i.e.- marijuana, cocaine, ecstasy, heroin, methamphetamines and psychedelic mushrooms), with history of alcohol withdrawal seizure (on Tegretol), overdose-related seizure, history of febrile seizure, asthma, anxiety , depression, peripheral neuropathy, who presented to the [facility] 05/20/2016 at 12:08 p.m., requesting alcohol detox. Upon arrival, she had low normal blood pressure, borderline tachycardia, stable O2 sat, afebrile. She stated she drank 6 beers daily, & last drink "seversl beers" just BARREL LEVELER. She denied any SI or HI. Her last alcohol detox was reportedly in 12/2015. She also had some nausea, vomiting, and diarrhea upon admission, most of which had essentially resolved. She was given magnesium, thiamine, folate, multivitamin, IV fluids, Ativan, Zofran, & Toprol in the ER. She claimed she was in relatively recently for alcohol detox, but resumed alcohol abuse shortly after discharge. An Ativan drip was started in the ER. She was officially admitted to the [facility] 05/21/2016. She has signed out AMA numerous times in the past. The patient's initial CIWA was in the 20 range, currently down to 4. Her IV Ativan was stopped on 05/24/2016, & switched to Librium. Her liver function tests were moderately elevated on admission, in a pattern consistent with alcoholic hepatitis. Her liver function tests have exhibited a downward trend. Her initial ammonia level was normal, and slightly bumped up to 54 on 05/24/2016 , then slightly improved to 49 on 05/25/2016. Her potassium levels have been relatively stable. She has had intermittent low magnesium and low phosphorus. She currently is on a regular diet. There is no longer any nausea, vomiting, diet or diarrhea. She had a low-grade fever, but no chills. She denied any symptoms of UTI or URI. She denied any jaundice, dark urine, light stools, or pruritus. She denied any constipation, change in stool caliber, obstipation, tenesmus, rectal bleeding, or melena. She denied any hematemesis, GERD, odynophagia, or dysphagia. As of 05/25/2016, the patient had some mild fatigue. She also had some vague right-sided abdominal pain, which resolved. *There is no family history of GI disease, GI malignancy, or inherited liver disease. There is a family history of alcohol-related liver disease (patient's mother and brother). ` The patient's parents are both alive, but she has limited contact with her father. (*The EMR system will not let me put the appropriate family history in the family history section). Her weight is stable and her appetite is good. Remote history of IVDA (heroin). No previous transfusions. Aside from earrings, umbilical piercing and nose piercing. + tattoos. No rashes or arthralgias. She denied any peripheral edema or increased abdominal girth. 02/07/2011: JENNI- neg 1:40; Hep A Ab, Hep Bs Ag, Hep B core Ab, hep c Ab- all negative. 02/08/2011: HIV- negative. 05/20/2016: Admission labs- WBC 8.1, H/H 12.6/35.8. MCV 97.6, RDW 15, PLT 115, glucose 125, BUN/Cr 2/0.5, GFR > 60, essentially normal electrolytes, AG 22, lipase 324 (200), Mg 1.3, Ca 8.8, alb 3.6, glob 3.5, TBil 0.9, alk phos 223, AST 420, ALT 196, [*EtOH] 377, therapeutic carbamazepine level 7.7, *Utox- negative; U/A- not sent 05/21/2016: PT 13.1, INR 1.25, PTT 32 05/21/2016: Lactate 3.3 (2.9), troponin < .01, nl FT4, TSH 4.86, salicylate < 1.0 05/22/2016: NH3 25. 05/21/2016: stool C&S, C. difficile, Shiga toxin, Giardia Ag, & Crypto Ag- all negative. 05/21/2016: Rectal swab + VRE 05/22/2016: Rapid viral influenza A/B- negative. 05/21/2016: EKG- ST @ 109, normal axis, low voltage in frontal leads. 05/23/2016: XR PORTABLE CHEST- Limited study secondary to technical factors and hypoventilation. Findings suspicious for left lower lobe pneumonia. There may be a small associated effusion. 05/24/2016: US ABDOMEN (RUQ) LIMITED- The liver is moderately enlarged and echogenic, consistent with hepatic, steatosis. Penetration of the liver is limited but no focal liver lesions are appreciated. Incompletely distended gallbladder. No cholelithiasis. Normal CBD 6 mm. No ascites. No other findings. Allergies/Medications Allergies: Coded Allergies: Sulfa (Sulfonamide Antibiotics) (UNKNOWN 05/20/16) Home Med List: Carbamazepine (Tegretol XR) 200 MG TAB.ER.12H 1 TAB PO BID UNKNOWN (Reported) Citalopram Hydrobromide (Citalopram HBr) 20 MG TABLET 1 TAB PO DAILY MENTAL HEALTH (Reported) Ferrous Sulfate 325 MG (65 MG IRON) TABLET 1 TAB PO DAILY SUPPLEMENT ( Reported) Folic Acid 0.8 MG TABLET 1 TAB PO DAILY SUPPLEMENT (Reported) Gabapentin 300 MG CAPSULE 1 CAP PO TID UNKNOWN (Reported) Metoprolol Succinate 50 MG TAB.ER.24H 1 TAB PO DAILY HEART (Reported) Pantoprazole Sodium (Protonix) 40 MG TABLET.DR 1 TAB PO DAILY GI (Reported) Vitamin C/Biotin (Ocwj-Yhtq-Jqkqd Gummies) 50 MG-1,250 MCG TAB.CHEW 2 TAB PO DAILY SUPPLEMENT (Reported) Current Medications: Current Medications Sig/Carola Start time Last Medication Dose Route Stop Time Status Admin Albuterol Sulfate 3 ML Q4H PRN 05/23 1130 AC 05/24 INH 1330 Carbamazepine 200 MG BID 05/21 1342 AC 05/25 PO 0936 Chlordiazepoxide HCl 50 MG Q6 05/24 1200 AC 05/25 PO 1201 Citalopram 20 MG DAILY 05/21 1342 AC 05/25 Hydrobromide PO 0936 Ferrous Sulfate 325 MG DAILY 05/21 1343 AC 05/25 PO 0936 Folic Acid 1 MG DAILY 05/24 1000 AC 05/25 PO 05/26 1001 0936 Gabapentin 300 MG TID 05/21 1000 AC 05/25 PO 0936 Ibuprofen 400 MG 4 TIMES/DAY PRN 05/21 0630 AC PO Lactulose 20 GM TID 05/25 1000 AC 05/25 PO 0936 Lactulose 1 BOT Q6 05/24 1800 DC 05/25 RI 0526 Lactulose 20 GM TID 05/24 1600 DC PO Lorazepam 100 MG Q10H 05/23 2200 DC 05/23 Sodium Chloride 1,000 ML IV 2245 Magnesium Oxide 400 MG BID 05/24 1000 DC 05/24 PO 05/24 2201 0915 Magnesium Sulfate 1 GM ONCE ONE 05/25 0800 DC 05/25 Dextrose/Water 100 ML IV 05/25 1159 0839 Metoprolol Succinate 50 MG DAILY 05/21 1000 AC 05/25 PO 0936 Multivitamins 1 TAB DAILY 05/24 1000 AC 05/25 PO 0936 Nicotine 14 MG DAILY 05/21 1000 AC 05/25 TOP 0937 Omeprazole 40 MG DAILY AC 05/22 0946 AC 05/24 PO 0916 Oxycodone HCl 5 MG Q6 PRN 05/21 0630 AC PO Phosphate 250 MG PC AND AT BEDTIME 05/22 0900 AC 05/25 PO 1245 Potassium Phosphate 15 mMol ONE ONE 05/25 08 DC 05/25 Sodium Chloride 250 ML IV 05/25 1203 0940 Sodium Chloride 2 SPRAY Q4 HRS NEEDED PRN 05/24 0945 AC ZENA Thiamine HCl 100 MG DAILY 05/24 1000 AC 05/25 PO 0936 Past History Travel History Traveled to [place] past 21 day No Medical History Blood Transfusion Hx: No Neurological: peripheral neuropathy, seizure (EtOH/withdrawal/febrile) EENT: NONE Cardiovascular: aortic aneurysm Respiratory: asthma Gastrointestinal: alcoholic hepatitis Hepatic: hepatic encephalopathy (questionable) Renal: NONE Musculoskeletal: NONE Psychiatric: alcohol dependence, anxiety, IV drug abuse, ANXIETY/DEPRESSION, substance abuse Endocrine: NONE, hypothyroidism (borderline) Blood Disorders: thrombocytopenia Cancer(s): NONE 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 Home Services at Home: None Primary Language: Armenian Smoking Status: Current Everyday Smoker ETOH Use: alcoholic Illicit Drug Use: hx polysubstance abuse, including cocaine, IV heroin, marijuana, metham phtetamine, ecstacy, mushrooms Living Will? no Power of Manager Alliance/HCP? no Other Social History: Single. One son- 8 y/o- [employer], whom the patient shares joint custody with her former boyfriend (son lives with him). The patient lives with her current boyfriend. [id number] cigarette smoker. Long history of alcohol abuse, exact amount unknown, at least 6 beers daily. History of polysubstance abuse, which the patient is minimizing, including ex- IV heroin, cocaine, methamphetamine, mushrooms, & ecstacy. Unemployed. Functional Ability ADLs Independent: dressing, eating, toileting, bathing. Ambulation: independent IADLs Independent: shopping, housework, finances, food prep, telephone, transportation , medication admin. Employment History Employment: Unemployed Review of Systems Review of Systems: Full 14 point review of systems otherwise noncontributory, and as above. Review of Systems Constitutional: Reports: weakness. Denies: chills, diaphoresis, fever, malaise, unexplained weight loss. EENTM: Denies: blurred vision, double vision, visual changes, eye pain, eye drainage, eye tearing, icterus, ear discharge, ear pain, ear redness, hearing changes, nasal congestion, epistaxis, nasal pain, throat pain, throat swelling, mouth pain, tooth pain. Cardiovascular: Denies: chest pain, edema, orthopena, palpitations, peripheral edema, syncope. Respiratory: Denies: cough, hemoptysis, orthopnea, short of breath, sputum production, stridor, wheezing. GI: Denies: abdominal pain, bloating, constipation, diarrhea, distention, bowel incontinence, melena, nausea, bloody stool, changes in stool, vomiting, steatorrhea. Genitourinary: Denies: discharge, dysuria, frequency, hematuria, hesitation, nocturia, pain, urgency. Musculoskeletal: Denies: back pain, gout, joint pain, joint swelling, muscle pain, muscle stiffness, neck pain. Skin: Denies: cysts, change in skin color, change in hair/nails, dryness, erythema, jaundice, lesions, lymphangitis, lumps, moles, rash. Neurological/Psychological: Reports: anxiety, depressed, emotional problems, tremors, weakness. Denies: ataxia, cognitive dysfunction, confusion, dementia, headache, numbness, paresthesia, pre-existing deficit, petit mal seizures, tingling, tonic-clonic seizures, unable to move lower ext, unable to move upper ext. Hematologic/Endocrine: Denies: bruising, bleeding, polyuria, polydipsia. Immunologic/Allergic: Denies: splenectomy, HIV/AIDS, lymphadenopathy. All Other Systems: Reviewed and Negative Exam & Diagnostic Data Vital Signs and I&O Vital Signs Date Time Temp Pulse Resp B/P Pulse O2 O2 Flow FiO2 Ox Delivery Rate 05/25 1400 98.9 88 20 112/78 05/25 1350 97 Nasal 2.0L Cannula 05/25 1200 98.9 93 20 112/78 05/25 1000 98.9 93 20 112/78 05/25 0936 98.9 93 20 112/78 05/25 0800 98.9 88 20 140/86 05/25 0800 93 Nasal 3.0L Cannula 05/25 0800 98.9 88 20 140/86 93 Nasal 3.0L Cannula 05/25 0600 99.1 60 16 167/83 05/25 0400 99.1 86 18 138/88 05/25 0400 97 Nasal 3.0L Cannula 05/25 0200 99.3 79 16 126/86 05/25 0000 99.3 93 18 116/70 05/25 0000 95 Nasal 3.0L Cannula 05/24 2200 100.3 82 18 112/74 05/24 2200 99.3 87 18 110/62 96 Nasal 3.0L Cannula 05/24 2000 100.3 92 18 102/73 05/24 2000 95 Nasal 3.0L Cannula 05/24 1713 94 Nasal 3.0L Cannula 05/24 1600 99.8 94 17 120/70 94 Nasal 3.0L Cannula 05/24 1600 94 Nasal 3.0L Cannula Intake & Output 05/25 1600 05/25 0400 05/24 1600 05/24 0400 05/23 1600 05/23 0400 Intake Total 1150 1337 2350 2638 2255 Output Total 300 700 Balance 1150 1337 2350 2338 1555 Intake, IV 573 752 4933 2538 1615 Intake, Oral 800 1017 100 640 Number 7 1 0 0 2 Bowel Movements Output, Urine 300 700 Patient 170 lb 170 lb Weight Physical Exam: Well-developed, well-nourished, slightly obese female, in no apparent distress. Sclera anicteric. Conjunctiva pink. Oropharynx clear. No oral thrush. No aphthous ulcers. Neck: supple. Old tattoos. Nose and umbilical piercings. There is no adenopathy, thyromegaly, or JVD. No peripheral stigmata of inflammatory bowel disease or chronic liver disease on exam. No spiders in the anterior chest wall. No CVA tenderness. Breast and pelvic exams: API. Lungs: clear to A&P, with slight decreased breath signs at the left base. No definite wheezing, rales, or rhonchi. Heart exam: regular rate rhythm, S1 and S2, distant, without any murmur. Abdominal exam: normal bowel sounds, soft belly, nontender, without guarding or rebound. No mass. Mildly enlarged liver 17 cm by percussion. No splenomegaly. Negative Turpin sign. No fluid shift. No pulsatile mass. No epigastric bruit. Digital rectal exam by myself 05/25/16: Brown stool, OB negative, normal sphincter tone, no mass, no external hemorrhoid , no fissure, nontender. Extremities: without C, C, or E. No palpable cords. Distal pulses 2+ bilaterally. DTRs 2+ bilaterally. Alert and oriented x 3, although slightly lethargic. Motor 5/5 B/L. A detailed exam for peripheral neuropathy was deferred. Results Pertinent Lab Results: Laboratory Tests 05/25 05/24 0415 1142 Chemistry Sodium (137 - 145 mmol/L) 144 Potassium (3.5 - 5.1 mmol/L) 3.8 Chloride (98 - 107 mmol/L) 111 H Carbon Dioxide (22 - 30 mmol/L) 24 Anion Gap (5 - 16) 9 BUN (7 - 17 mg/dL) 3 L Creatinine (0.5 - 1.0 mg/dL) 0.4 L Estimated GFR (>60 ml/min) > 60 Glucose (65 - 99 mg/dL) 88 Calcium (8.4 - 10.2 mg/dL) 7.3 L Phosphorus (2.5 - 4.5 mg/dL) 2.3 L Magnesium (1.6 - 2.3 mg/dL) 1.9 Total Bilirubin (0.2 - 1.3 mg/dL) 1.5 H AST (14 - 36 U/L) 103 H ALT (9 - 52 U/L) 87 H Ammonia (9 - 30 umol/L) 49 H 54 H Albumin (3.5 - 5.0 g/dL) 2.6 L Hematology CBC w Diff NO MAN DIFF REQ WBC (4.8 - 10.8 /CUMM) 6.2 RBC (4.20 - 5.40 /CUMM) 3.05 L Hgb (12.0 - 16.0 G/DL) 10.5 L Hct (37 - 47 %) 31.5 L MCV (81.0 - 99.0 FL) 103.2 H MCH (27.0 - 31.0 PG) 34.3 H RDW (11.5 - 14.5 %) 15.9 H Plt Count (130 - 400 /CUMM) 151 MPV (7.4 - 10.4 FL) 9.8 Gran % (42.2 - 75.2 %) 57.2 Lymphocytes % (20.5 - 51.1 %) 29.6 Monocytes % (1.7 - 9.3 %) 11.2 H Eosinophils % (0 - 5 %) 1.6 Basophils % (0.0 - 2.0 %) 0.4 Absolute Granulocytes (1.4 - 6.5 /CUMM) 3.5 Absolute Lymphocytes (1.2 - 3.4 /CUMM) 1.8 Absolute Monocytes (0.10 - 0.60 /CUMM) 0.7 H Absolute Eosinophils (0.0 - 0.7 /CUMM) 0.1 Absolute Basophils (0.0 - 0.2 /CUMM) 0 PUBS MCHC (33.0 - 37.0 G/DL) 33.3 04/ 0405/23/ 0425 1600 0300 1730 Chemistry Sodium (137 - 145 mmol/L) 141 142 139 Potassium (3.5 - 5.1 mmol/L) 4.0 3.9 4.1 Chloride (98 - 107 mmol/L) 109 H 108 H 109 H Carbon Dioxide (22 - 30 mmol/L) 24 23 22 Anion Gap (5 - 16) 8 10 8 BUN (7 - 17 mg/dL) < 2 L < 2 L < 2 L Creatinine (0.5 - 1.0 mg/dL) 0.5 0.5 0.4 L Estimated GFR (>60 ml/min) > 60 > 60 > 60 Glucose (65 - 99 mg/dL) 101 H 88 92 Calcium (8.4 - 10.2 mg/dL) 6.9 L 7.0 L 7.2 L Phosphorus (2.5 - 4.5 mg/dL) 2.7 3.0 1.3 L Magnesium (1.6 - 2.3 mg/dL) 1.7 1.9 1.6 Total Bilirubin (0.2 - 1.3 mg/dL) 2.6 H 2.4 H 2.3 H Direct Bilirubin (< 0.4 mg/dL) 1.4 H AST (14 - 36 U/L) 166 H 190 H 233 H ALT (9 - 52 U/L) 111 H 127 H 138 H Ammonia (9 - 30 umol/L) 25 Albumin (3.5 - 5.0 g/dL) 2.6 L 2.6 L 2.6 L Hematology CBC w Diff NO MAN DIFF REQ WBC (4.8 - 10.8 /CUMM) 6.8 RBC (4.20 - 5.40 /CUMM) 2.99 L Hgb (12.0 - 16.0 G/DL) 10.3 L Hct (37 - 47 %) 30.8 L MCV (81.0 - 99.0 FL) 102.8 H MCH (27.0 - 31.0 PG) 34.4 H RDW (11.5 - 14.5 %) 15.7 H Plt Count (130 - 400 /CUMM) 134 MPV (7.4 - 10.4 FL) 9.3 Gran % (42.2 - 75.2 %) 61.8 Lymphocytes % (20.5 - 51.1 %) 24.3 Monocytes % (1.7 - 9.3 %) 12.3 H Eosinophils % (0 - 5 %) 1.2 Basophils % (0.0 - 2.0 %) 0.4 Absolute Granulocytes (1.4 - 6.5 /CUMM) 4.2 Absolute Lymphocytes (1.2 - 3.4 /CUMM) 1.6 Absolute Monocytes (0.10 - 0.60 /CUMM) 0.8 H Absolute Eosinophils (0.0 - 0.7 /CUMM) 0.1 Absolute Basophils (0.0 - 0.2 /CUMM) 0 PUBS MCHC (33.0 - 37.0 G/DL) 33.5 Imaging/Other Studies: 05/21/2016: EKG- ST @ 109, normal axis, low voltage in frontal leads. 05/23/2016: XR PORTABLE CHEST- Limited study secondary to technical factors and hypoventilation. Findings suspicious for left lower lobe pneumonia. There may be a small associated effusion. 05/24/2016: US ABDOMEN (RUQ) LIMITED- The liver is moderately enlarged and echogenic, consistent with hepatic, steatosis. Penetration of the liver is limited but no focal liver lesions are appreciated. Incompletely distended gallbladder. No cholelithiasis. Normal CBD 6 mm. No ascites. No other findings. Assessment/Plan Assessment/Recommendations: 35-year-old female, non-HTN, non-DM, with years of alcohol abuse and polysubstance abuse (i.e.- marijuana, cocaine, ecstasy, heroin, methamphetamines and psychedelic mushrooms), with history of alcohol withdrawal seizure (on Tegretol), overdose-related seizure, history of febrile seizure, asthma, anxiety , depression, peripheral neuropathy, who presented to the [facility] 05/20/2016 at 12:08 p.m., requesting alcohol detox. Upon arrival, she had low normal blood pressure, borderline tachycardia, stable O2 sat, afebrile. She stated she drank 6 beers daily, & last drink "seversl beers" just BARREL LEVELER. She denied any SI or HI. Her last alcohol detox was reportedly in 12/2015. She also had some nausea, vomiting, and diarrhea upon admission, most of which had essentially resolved. She was given magnesium, thiamine, folate, multivitamin, IV fluids, Ativan, Zofran, & Toprol in the ER. She claimed she was in relatively recently for alcohol detox, but resumed alcohol abuse shortly after discharge. An Ativan drip was started in the ER. She was officially admitted to the [facility] 05/21/2016. She has signed out AMA numerous times in the past. The patient's initial CIWA was in the 20 range, currently down to 4. Her IV Ativan was stopped on 05/24/2016, & switched to Librium. Her liver function tests were moderately elevated on admission, in a pattern consistent with alcoholic hepatitis. Her liver function tests have exhibited a downward trend. Her initial ammonia level was normal, and slightly bumped up to 54 on 05/24/2016 , then slightly improved to 49 on 05/25/2016. Her potassium levels have been relatively stable. She has had intermittent low magnesium and low phosphorus. She currently is on a regular diet. There is no longer any nausea, vomiting, diet or diarrhea. She had a low-grade fever, but no chills. She denied any symptoms of UTI or URI. She denied any jaundice, dark urine, light stools, or pruritus. She denied any constipation, change in stool caliber, obstipation, tenesmus, rectal bleeding, or melena. She denied any hematemesis, GERD, odynophagia, or dysphagia. As of 05/25/2016, the patient had some mild fatigue. She also had some vague right-sided abdominal pain, which resolved. *There is no family history of GI disease, GI malignancy, or inherited liver disease. There is a family history of alcohol-related liver disease (patient's mother and brother). ` The patient's parents are both alive, but she has limited contact with her father. (*The EMR system will not let me put the appropriate family history in the family history section). Her weight is stable and her appetite is good. Remote history of IVDA (heroin). No previous transfusions. Aside from earrings, umbilical piercing and nose piercing. + tattoos. No rashes or arthralgias. She denied any peripheral edema or increased abdominal girth. 02/07/2011: JENNI- neg 1:40; Hep A Ab, Hep Bs Ag, Hep B core Ab, hep c Ab- all negative. 02/08/2011: HIV- negative. 05/20/2016: Admission labs- WBC 8.1, H/H 12.6/35.8. MCV 97.6, RDW 15, PLT 115, glucose 125, BUN/Cr 2/0.5, GFR > 60, essentially normal electrolytes, AG 22, lipase 324 (200), Mg 1.3, Ca 8.8, alb 3.6, glob 3.5, TBil 0.9, alk phos 223, AST 420, ALT 196, [*EtOH] 377, therapeutic carbamazepine level 7.7, *Utox- negative; U/A- not sent 05/21/2016: PT 13.1, INR 1.25, PTT 32 05/21/2016: Lactate 3.3 (2.9), troponin < .01, nl FT4, TSH 4.86, salicylate < 1.0 05/22/2016: NH3 25. 05/21/2016: stool C&S, C. difficile, Shiga toxin, Giardia Ag, & Crypto Ag- all negative. 05/21/2016: Rectal swab + VRE 05/22/2016: Rapid viral influenza A/B- negative. 05/21/2016: EKG- ST @ 109, normal axis, low voltage in frontal leads. 05/23/2016: XR PORTABLE CHEST- Limited study secondary to technical factors and hypoventilation. Findings suspicious for left lower lobe pneumonia. There may be a small associated effusion. 05/24/2016: US ABDOMEN (RUQ) LIMITED- The liver is moderately enlarged and echogenic, consistent with hepatic, steatosis. Penetration of the liver is limited but no focal liver lesions are appreciated. Incompletely distended gallbladder. No cholelithiasis. Normal CBD 6 mm. No ascites. No other findings. *The patient's ammonia was mildly elevated. It is currently improving on Lactulose. She is currently alert and oriented 3, although slightly lethargic. I am not convinced the patient is cirrhotic, but rather has alcoholic hepatitis. She does not meet criteria for Prednisolone or Trental by the Maddrey formula, and these have fallen out of favor anyway. I am also not convinced she definitely has portal systemic encephalopathy. She did have borderline low platelet count, but her albumin:globulin ratio on admission was relatively stable and her INR was only minimally elevated. With regards to precipitants of elevated ammonia level, sepsis should be excluded. There was no evidence of hypokalemia, which is a common precipitant, however her magnesium and phosphorus were low. Her stools are guaiac negative and there is no evidence of any overt upper GI bleeding. The fatty liver is noted, a large portion of which undoubtedly is from her alcohol abuse. Apparently, her mentation improved after adding Lactulose. The limited RUQ sono did not show any ascites to suggest SBP. She was on an IV Ativan drip for alcohol withdrawal , which could have precipitated the elevated ammonia level. She also seems more alert after switching Ativan to Librium. SUGGEST: If one is to treat the mildly elevated ammonia level, would prefer Rifaximin 550 mg po BID to the Lactulose, as the latter can precipitate dehydration and electrolyte abnormalities. Feed patient as tolerated with aspiration precautions. Consider panculture, or at least checking urinalysis, and/or repeat CXR, to exclude additional sources of infection. Close attention to electrolytes (i.e.- replete magnesium, phosphorus, etc.). Thiamine, folate, multivitamin. Consider checking B12, folate, & thiamine levels (05/23/16: TSH 4.86). DVT prophylaxis. Empiric Omeprazole. *Stop NSAIDs (on Ibuprofen). Minimize sedative hypnotics. Carefully continue Librium. Consideration for use of Haldol to treat withdrawal, in order to spare use of benzodiazepines. Agree with beta blockers as tolerated, for treating withdrawal. Risk factor modification for fatty liver, including strict control of body weight, blood sugar, lipids, blood pressure, and alcohol cessation. Consideration for addition of Vitamin E 800 IU po daily for fatty liver. Consideration for outpatient liver spleen scan to rule out colloid shift (doubt cirrhosiis). Consideration for further liver workup as outpatient, to include repeat Hepatitis A, B, & C serologies, HIV, Fe, TIBC, ferritin, JENNI, ceruloplasmin, etc., although I doubt the patient will comply. Advise psychiatric and social service input. The above was discussed with the medical house staff & with Dr. Wright. Further inpatient GI follow up as needed. 1 hour of ICU care was spent on the patient. Problem List: 1. Alcoholic hepatitis 2. Elevated LFTs 3. Hyperammonemia 4. Fatty liver 5. Macrocytic anemia 6. ALCOHOLISM 7. POLYSUBSTANCE ABUSE Copies To: CONNIE DOUGHERTY,Jarrett LARA; MAGO DOUGHERTY,RIP Beck; DIMITRIOS DOUGHERTY,HARDY Consult Acknowledgment - Thank you for your consult request.
--- NOTE | 2016-05-25 16:48 | Transfer of Care Summary ---
Hospital Course Course Hospital Course: This is 35-year-old female with past medical history of alcohol withdrawal seizure, asthma not on current medication, depression, anxiety, peripheral neuropathy. Presented to the emergency department requesting alcohol detox. Patient stated that she drink every day since 2016 until now, 6-7 cans of beer and hard liquor, patient stated that she was super for 1-1/2 month in the beginning of 2015 after that she restart drinking again, last drink was prior admission. She was admitted to ICU , started on Ativan drip which was discontinued 05/24. We are currently monitoring for the following conditions.: Alcohol withdrawal : Off of Ativan drip, Librium 50mg q6 added with holding parameters, CIWA in last 24 hours 2-6. Thiamine/folic acid/MV, Psychiatry on board, follow-up recommendations. * Taper Librium as appropriate, currently on Librium 50mg q6 * Follow social work and Psych consultation. Alcoholic Transaminitis: Elevated LFTs upon presentation, likely secondary to alcohol consumption. RUQ sono showed moderately enlarged liver. Ammonia 54>>49, recieved lactulos, repeat levels improved, seen by GI. * Recommended consider patient Rifaximin 550 mg po BID instead of Lactulose due to electrolyte abnormalities with later. * Please re-evaluate for need of Rifaximin tommorow. Diarrhea : Resolved. Patient presented with diarrhea, likely secondary to chronic alcohol consumption and poor oral intake, * Stool cultures, ova parasites, C. difficile negative. * Patient tolerating by mouth intake well without any nausea or vomiting. Hypomagnesemia; Resolved, replete as needed. Hypokalemia: Resolved, replete as needed. Hypophosphatemia: Replaced,follow repeat labs, repeat as needed. DVT prophylaxis: ALPS Pain pathway Patient is full code. Complications: none Assessment/Plan: . Hypophosphatemia: Replaced,follow repeat labs, repeat as needed. DVT prophylaxis: ALPS Pain pathway Patient is full code.
[2016-05-26 02:00] VITALS: BP 106/70
[2016-05-26 02:10] VITALS: BP 106/70
[2016-05-26 06:00] VITALS: BP 108/80
[2016-05-26 06:08] VITALS: BP 108/80
--- NOTE | 2016-05-26 07:25 | PN- Housestaff ---
MARY DOUGHERTY,VIVIANE 05/26/16 0725: Subjective Follow-up For: EtOH withdrawal/abuse/dependence Subjective: Patient seen and examined. She is seen sitting upright in bed resting comfortably. She appears to be in no acute distress. She reports feeling "not right" and admits to a mild persistent tremor. She has no new subjective complaints. She does also admit to multiple episodes of brown watery diarrhea without any obvious blood. She denies any blurred/double vision, lightheadedness/dizziness, headache, fever , chills, chest pain, palpitations, shortness breath, cough, nausea, vomiting. No overnight events reported. Review of Systems Constitutional: Reports: see HPI. Objective Last 24 Hrs of Vital Signs/I&O Vital Signs Date Time Temp Pulse Resp B/P Pulse O2 O2 Flow FiO2 Ox Delivery Rate 05/26 1422 99.0 72 18 120/80 97 Room Air 05/26 1027 72 100/60 05/26 0800 Room Air 05/26 0608 101.0 78 20 108/80 96 Nasal 2.0L Cannula 05/26 0600 101.0 78 20 108/80 05/26 0210 99.8 90 20 106/70 96 Nasal 2.0L Cannula 05/26 0200 99.8 90 20 106/70 05/26 0000 98 Nasal 2.0L Cannula 05/25 2209 98.4 95 18 100/60 98 Nasal 3.0L Cannula 05/25 1903 99.3 97 20 102/62 98 Nasal 3.0L Cannula 05/25 1851 95 Nasal 3.0L Cannula 05/25 1800 98.5 99 18 120/62 05/25 1600 98.5 99 20 120/62 05/25 1600 98.5 99 20 120/62 96 Nasal 3.0L Cannula 05/25 1600 96 Nasal 3.0L Cannula Intake & Output 05/26 1600 05/26 0800 05/26 0000 Intake Total 100 400 Output Total 100 0 Balance -100 100 400 Intake, IV 0 Intake, Oral 100 400 Number 0 2 Bowel Movements Output, Urine 100 0 Physical Exam General Appearance: Alert, Oriented X3, Cooperative, No Acute Distress Other Physical Findings: General -well-developed, well-nourished young woman in no acute distress HEENT - NCAT, PERRL, EOMI, anicteric sclera Cardio - S1, S2 w/o murmurs/gallops/rubs Resp -scant bibasilar wheezing without crackles/rhonchi GI - soft, nontender, nondistended, bowel sounds present Neuro - Awake and alert, CN II - XII grossly intact Extremities - no edema, pulses intact, mild tremor Current Medications: Current Medications Sig/Carola Start time Last Medication Dose Route Stop Time Status Admin Albuterol Sulfate 3 ML Q4H PRN 05/23 1130 AC 05/24 INH 1330 Carbamazepine 200 MG BID 05/21 1342 AC 05/26 PO 1022 Chlordiazepoxide HCl 50 MG Q6 05/24 1200 DC 05/26 PO 0616 Citalopram 20 MG DAILY 05/21 1342 AC 05/26 Hydrobromide PO 1027 Ferrous Sulfate 325 MG DAILY 05/21 1343 AC 05/26 PO 1027 Folic Acid 1 MG DAILY 05/24 1000 DC 05/26 PO 05/26 1001 1021 Gabapentin 300 MG TID 05/21 1000 AC 05/26 PO 1027 Heparin Sodium 5,000 UNIT Q8 05/25 1525 AC 05/26 (Porcine) SC 1343 Ibuprofen 400 MG 4 TIMES/DAY PRN 05/21 0630 DC PO Lactulose 20 GM TID 05/25 1000 DC 05/25 PO 0936 Lorazepam 1.5 MG Q6 05/26 1200 AC 05/26 IV 1214 Lorazepam 1 MG Q4P PRN 05/26 0945 AC PO Lorazepam 1 MG ONE ONE 05/25 2115 DC 05/25 PO 05/25 2116 2111 Metoprolol Succinate 50 MG DAILY 05/21 1000 AC 05/26 PO 1027 Multivitamins 1 TAB DAILY 05/24 1000 AC 05/26 PO 1022 Nicotine 14 MG DAILY 05/21 1000 AC 05/26 TOP 1030 Omeprazole 40 MG DAILY AC 05/22 0946 AC 05/26 PO 0617 Oxycodone HCl 5 MG Q6 PRN 05/21 0630 AC PO Phosphate 250 MG PC AND AT BEDTIME 05/22 0900 AC 05/26 PO 1343 Sodium Chloride 2 SPRAY Q4 HRS NEEDED PRN 05/24 0945 AC ZENA Thiamine HCl 100 MG DAILY 05/24 1000 AC 05/26 PO 1022 Last 24 Hrs of Lab/Deric Results Last 24 Hrs of Labs/Mics: Laboratory Tests 05/26/16 1010: Ammonia 30 05/26/16 0725: Anion Gap 9, Estimated GFR > 60, BUN/Creatinine Ratio 8.0, CBC w Diff NO MAN DIFF REQ, RBC 3.04 L, MCV 103.2 H, MCH 34.1 H, RDW 16.0 H, MPV 10.3, Gran % 49.9, Lymphocytes % 35.3, Monocytes % 12.4 H, Eosinophils % 1.7, Basophils % 0.7, Absolute Granulocytes 3.3, Absolute Lymphocytes 2.3, Absolute Monocytes 0.8 H, Absolute Eosinophils 0.1, Absolute Basophils 0, PUBS MCHC 33.0 Microbiology 05/26 1030 BLOOD: Blood Culture - RECD 05/26 1030 BLOOD: Blood Culture - RECD 05/26 0947 URINE ROUT: Urine Culture - COLB 05/26 945 STOOL: Clostridium difficile Toxin A & B - COLB Assessment/Plan Assessment: Patient reportedly appeared somnolent/lethargic and was difficult to arouse this morning per nursing staff. Patient was seen to be tired appearing fully conversive a short time thereafter. Her Librium taper is being converted to an equivalent Ativan formulation for her mildly elevated liver function tests. She is tolerating her alcohol detox regimen well thus far and will be continued on CIWA protocol with scheduled doses of Ativan. Patient was febrile to 101.0 overnight for unclear reasons for which blood/urine cultures, urinalysis, and C. difficile toxin were obtained. Repeat ammonia level was within normal limits today. Patient was taken off of supplemental oxygen as she was saturating 95% on room air during ambulation. EtOH withdrawal/abuse/dependence Patient with history of multiple admissions for alcohol detox, alcohol withdrawal seizures anxiety, and depression presented to the ED requesting alcohol detox stating last drink was just prior to admission. Patient reportedly drinks 6-7 cans of beer in addition to hard liquor each day. She was reportedly sober for 1-2 months the beginning of 2015 and began drinking shortly thereafter up until admission. Patient was admitted to the intensive care unit and required an Ativan drip before being transferred to the general medicine floor for further management and care. -Gen. Medicine -CIWA protocol -Ativan 1.5 mg by mouth every 6 hours -Ativan when necessary per CIWA -Thiamine/folic acid/multivitamin -Psych consult History of seizure disorder -Carbamazepine 20 mg by mouth twice a day -Gabapentin 300 mg by mouth 3 times a day Anxiety/depression-Celexa 20 mg by mouth daily Current every day smoker-nicotine 14 mg patch daily Pain Plan-oxycodone Diet-regular diet DVT prophylaxis-subcutaneous heparin CODE STATUS-full code Problem List: 1. Alcohol dependence Pain Ratin Pain Location: None Pain Goal: Remain pain free Pain Plan: See assessment Tomorrow's Labs & Rationales: Liver function tests-transaminitis Phosphate-hypophosphatemia Magnesium-hypomagnesemia GERMAINE WOODRUFF MD 05/26/16 1610: Attending MD Review Statement Attending Statement Attending MD Statement: examined this patient, discuss w/resident/PA/EVALUATOR, agreed w/resident/PA/EVALUATOR, reviewed EMR data (avail), amended to note Attending Assessment/Plan: The patient was seen and discussed with house staff. Was febrile to 101 yesterday. Stool C-diff anc cultures pending. The patient was drowsy. Agree with change Librium to Ativan and taper.
[2016-05-26 07:56] LABS: ABSOLUTE BASOPHIL COUNT 0 /CUMM (0.0-0.2); ABSOLUTE EOSINOPHIL COUNT 0.1 /CUMM (0.0-0.7); ABSOLUTE GRANULOCYTE CT 3.3 /CUMM (1.4-6.5); ABSOLUTE LYMPH COUNT 2.3 /CUMM (1.2-3.4); ABSOLUTE MONOCYTE COUNT 0.8 /CUMM (0.10-0.60); BASOPHIL % 0.7 % (0.0-2.0); EOSINOPHIL % 1.7 % (0-5); GRANULOCYTE % 49.9 % (42.2-75.2); HEMATOCRIT 31.4 % (37-47); MEAN CORPUSCULAR HGB 34.1 PG (27.0-31.0); MEAN CORPUSCULAR VOLUME 103.2 FL (81.0-99.0); MEAN PLATELET VOLUME 10.3 FL (7.4-10.4); PLATELET COUNT 182 /CUMM (130-400); RED BLOOD CELL CT 3.04 /CUMM (4.20-5.40); WHITE BLOOD CELL COUNT 6.6 /CUMM (4.8-10.8)
[2016-05-26 14:22] VITALS: BP 120/80
[2016-05-26 22:27] VITALS: BP 142/90
[2016-05-27 06:00] VITALS: BP 138/82
[2016-05-27 06:43] VITALS: BP 138/82
--- NOTE | 2016-05-27 07:08 | PN- Housestaff ---
MARY DOUGHERTY,VIVIANE 05/27/16 0708: Subjective Follow-up For: EtOH withdrawal/abuse/dependence Subjective: Patient seen and examined. She is seen sitting upright in bed resting comfortably. She appears to be in no acute distress. She reports sleeping well last night but otherwise feels well and has no new subjective complaints. She is still complaining of persistent, but improving, loose brown watery nonbloody bowel movements and a mild tremor. Otherwise she denies any lightheadedness/dizziness, headache, fever, chills, chest pain, palpitations, shortness of breath, cough, nausea, vomiting, diarrhea. No overnight events reported. Review of Systems Constitutional: Reports: see HPI. Objective Last 24 Hrs of Vital Signs/I&O Vital Signs Date Time Temp Pulse Resp B/P Pulse O2 O2 Flow FiO2 Ox Delivery Rate 05/27 1439 98.6 90 20 136/92 95 05/27 0902 95 Room Air Room Air 05/27 0838 67 138/82 05/27 0643 98.4 67 18 138/82 95 Room Air 05/27 0600 98.4 67 18 138/82 05/27 0000 95 Room Air 05/26 2227 98.1 75 20 142/90 95 05/26 2110 97 Room Air Room Air Intake & Output 05/27 1600 05/27 0800 05/27 0000 Intake Total 200 280 Output Total 540 200 Balance -540 200 80 Intake, IV 0 Intake, Oral 200 280 Number 0 Bowel Movements Output, Urine 540 200 Physical Exam General Appearance: Alert, Oriented X3, Cooperative, No Acute Distress Other Physical Findings: General -well-developed, well-nourished young woman in no acute distress HEENT - NCAT, PERRL, EOMI, anicteric sclera Cardio - S1, S2 w/o murmurs/gallops/rubs Resp -scant bibasilar wheezing without crackles/rhonchi GI - soft, nontender, nondistended, bowel sounds present Neuro - Awake and alert, CN II - XII grossly intact Extremities - no edema, pulses intact, mild tremor Current Medications: Current Medications Sig/Carola Start time Last Medication Dose Route Stop Time Status Admin Albuterol Sulfate 3 ML Q4H PRN 05/23 1130 AC 05/24 INH 1330 Carbamazepine 200 MG BID 05/21 1342 AC 05/27 PO 0838 Citalopram 20 MG DAILY 05/21 1342 AC 05/27 Hydrobromide PO 0838 Ferrous Sulfate 325 MG DAILY 05/21 1343 AC 05/27 PO 0838 Gabapentin 300 MG TID 05/21 1000 AC 05/27 PO 0838 Heparin Sodium 5,000 UNIT Q8 05/25 1525 AC 05/27 (Porcine) SC 1350 Lorazepam 1 MG Q6 05/27 1200 AC 05/27 PO 1151 Lorazepam 1.5 MG Q6 05/26 1800 DC 05/27 PO 0611 Lorazepam 0.5 MG .STK-MED ONE 05/26 1756 DC PO 05/26 1757 Lorazepam 1.5 MG Q6 05/26 1200 DC 05/26 IV 1214 Lorazepam 1 MG Q4P PRN 05/26 0945 DC PO Magnesium Sulfate 1 GM Q2H 05/27 1145 AC Dextrose/Water 100 ML IV 05/27 1544 Metoprolol Succinate 50 MG DAILY 05/21 1000 AC 05/27 PO 0838 Multivitamins 1 TAB DAILY 05/24 1000 AC 05/27 PO 0838 Nicotine 14 MG DAILY 05/21 1000 AC 05/27 TOP 0838 Omeprazole 40 MG DAILY AC 05/22 0946 AC 05/27 PO 0612 Oxycodone HCl 5 MG Q6 PRN 05/21 0630 AC PO Phosphate 250 MG PC AND AT BEDTIME 05/22 0900 AC 05/27 PO 1153 Sodium Chloride 2 SPRAY Q4 HRS NEEDED PRN 05/24 0945 AC ZENA Thiamine HCl 100 MG DAILY 05/24 1000 AC 05/27 PO 0838 Last 24 Hrs of Lab/Deric Results Last 24 Hrs of Labs/Mics: Laboratory Tests 05/27/16 1030: Urine Color YEL, Urine Clarity HAZY H, Urine pH 6.5, Ur Specific [place] 1.010, Urine Protein NEG, Urine Ketones NEG, Urine Nitrite NEG, Urine Bilirubin NEG, Urine Urobilinogen 4.0 H, Ur Leukocyte Esterase NEG, Ur Microscopic SEDIMENT EXAMINED, Urine RBC RARE, Urine WBC RARE, Ur Epithelial Cells MANY H, Urine Bacteria MANY H, Urine Mucus FEW, Urine Hemoglobin NEG, Urine Glucose NEG 05/27/16 0752: Phosphorus 4.1, Magnesium 1.4 L, Total Bilirubin 1.4 H, Direct Bilirubin 0.7 H, AST 95 H, ALT 73 H, Alkaline Phosphatase 131 H, Total Protein 6.1 L, Albumin 2.9 L Microbiology 05/27 1030 URINE ROUT: Urine Culture - RECD 05/27 1030 STOOL: Clostridium difficile Toxin A & B - COMP Assessment/Plan Assessment: Today patient is awake and alert and appropriate. Yesterday her CIWA scores were 0-7 requiring 0 additional doses of Ativan. Her Ativan is to be reduced to 1 mg every 6 hours today and is to be further tapered tomorrow. Magnesium was found to be low today for which 2 g of intravenous magnesium for given, oral magnesium oxide was avoided due to her persistent diarrhea. C. difficile toxin was negative. Liver function tests have been improving day over day with no need for further monitoring. He continued on her Ativan taper and to be discharged on Wednesday or Wednesday depending on her clinical course EtOH withdrawal/abuse/dependence Patient with history of multiple admissions for alcohol detox, alcohol withdrawal seizures anxiety, and depression presented to the ED requesting alcohol detox stating last drink was just prior to admission. Patient reportedly drinks 6-7 cans of beer in addition to hard liquor each day. She was reportedly sober for 1-2 months the beginning of 2015 and began drinking shortly thereafter up until admission. Patient was admitted to the intensive care unit and required an Ativan drip before being transferred to the general medicine floor for further management and care. -Gen. Medicine -CIWA protocol -Ativan 1 mg by mouth every 6 hours (05/27/16) -Ativan 1 mg by mouth every 8 hours (05/28/16) -Ativan 1 mg by mouth every 12 hours (05/29/16) -Ativan when necessary per CIWA -Thiamine/folic acid/multivitamin -Psych consult History of seizure disorder -Carbamazepine 20 mg by mouth twice a day -Gabapentin 300 mg by mouth 3 times a day Anxiety/depression-Celexa 20 mg by mouth daily Current every day smoker-nicotine 14 mg patch daily Pain Plan-oxycodone Diet-regular diet DVT prophylaxis-subcutaneous heparin CODE STATUS-full code Problem List: 1. Alcohol dependence Pain Ratin Pain Location: None Pain Goal: Remain pain free Pain Plan: See assessment Tomorrow's Labs & Rationales: None KARLY SÁNCHEZ MD 05/27/16 1212: Attending MD Review Statement Attending Statement Attending MD Statement: examined this patient, discuss w/resident/PA/GLASS HANDLER, agreed w/resident/PA/GLASS HANDLER, reviewed EMR data (avail), discussed with nursing, discussed with case mgmt, amended to note Attending Assessment/Plan: Pt seen and examined. Resting comfortably and not in any acute distress. Denies nausea or vomiting. Denies abdominal pain. No events overight reported by nursing staff. Patient has not required additional doses of ativan. Labs reveal an improvement of her transaminitis. Recommendations: -Continue ativan taper. -Mobilize patient. -Out-pt etoh rehab.
[2016-05-27 14:39] VITALS: BP 136/92
[2016-05-27 22:51] VITALS: BP 132/90
[2016-05-28 06:00] VITALS: BP 120/80
[2016-05-28 06:46] VITALS: BP 120/80
--- NOTE | 2016-05-28 07:09 | PN- Housestaff ---
MARY DOUGHERTY,VIVIANE 05/28/16 0709: Subjective Follow-up For: EtOH withdrawal/abuse/dependence Subjective: Patient seen and examined. She is seen sitting upright in bed resting comfortably. She appears to be in no acute distress. She reports sleeping well last night and has no new subjective complaints today. Diarrhea has resolved and she is tolerating the Ativan taper well. Additionally she denies any headache, fever, chills, chest pain, palpitations, shortness breath, cough, nausea, vomiting, diarrhea. No overnight events reported. Review of Systems Constitutional: Reports: see HPI. Objective Last 24 Hrs of Vital Signs/I&O Vital Signs Date Time Temp Pulse Resp B/P Pulse O2 O2 Flow FiO2 Ox Delivery Rate 05/28 0955 101 100/60 05/28 0824 96 Room Air 05/28 0800 Room Air 05/28 0646 99.4 82 20 120/80 93 Room Air 05/28 0600 99.4 82 20 120/80 05/28 0000 94 Room Air 05/27 2251 99.4 85 20 132/90 94 Room Air 05/27 1947 97 Room Air 05/27 1439 98.6 90 20 136/92 95 Intake & Output 05/28 1600 05/28 0800 05/28 0000 Intake Total 240 680 Output Total Balance 240 680 Intake, IV 0 200 Intake, Oral 240 480 Number 0 Bowel Movements Physical Exam General Appearance: Alert, Oriented X3, Cooperative, No Acute Distress Other Physical Findings: General -well-developed, well-nourished young woman in no acute distress HEENT - NCAT, PERRL, EOMI, anicteric sclera Cardio - S1, S2 w/o murmurs/gallops/rubs Resp -scant bibasilar wheezing without crackles/rhonchi GI - soft, nontender, nondistended, bowel sounds present Neuro - Awake and alert, CN II - XII grossly intact Extremities -normal pulses, no cyanosis/clubbing/edema Current Medications: Current Medications Sig/Carola Start time Last Medication Dose Route Stop Time Status Admin Albuterol Sulfate 2 PUF Q4P PRN 05/28 1000 AC INH Albuterol Sulfate 3 ML Q4H PRN 05/23 1130 DC 05/24 INH 1330 Carbamazepine 200 MG BID 05/21 1342 AC 05/28 PO 0956 Citalopram 20 MG DAILY 05/21 1342 AC 05/28 Hydrobromide PO 0955 Ferrous Sulfate 325 MG DAILY 05/21 1343 AC 05/28 PO 0955 Gabapentin 300 MG TID 05/21 1000 AC 05/28 PO 0956 Heparin Sodium 5,000 UNIT Q8 05/25 1525 AC 05/28 (Porcine) SC 1254 Lorazepam 1 MG Q8 05/28 1400 AC 05/28 PO 05/29 0601 1253 Lorazepam 1 MG Q6 05/27 1200 DC 05/28 PO 05/28 0601 0641 Magnesium Sulfate 1 GM Q2H 05/27 1145 DC 05/27 Dextrose/Water 100 ML IV 05/27 1544 1611 Metoprolol Succinate 50 MG DAILY 05/21 1000 AC 05/28 PO 0955 Multivitamins 1 TAB DAILY 05/24 1000 AC 05/28 PO 0955 Nicotine 14 MG DAILY 05/21 1000 AC 05/28 TOP 0956 Omeprazole 40 MG DAILY AC 05/22 0946 AC 05/28 PO 0641 Oxycodone HCl 5 MG Q6 PRN 05/21 0630 DC PO Phosphate 250 MG PC AND AT BEDTIME 05/22 0900 AC 05/28 PO 1252 Sodium Chloride 2 SPRAY Q4 HRS NEEDED PRN 05/24 0945 AC ZENA Thiamine HCl 100 MG DAILY 05/24 1000 AC 05/28 PO 0955 Last 24 Hrs of Lab/Deric Results Last 24 Hrs of Labs/Mics: Laboratory Tests 05/28/16 0725: Magnesium 1.8 Assessment/Plan Assessment: Patient continues to do well and is tolerating the Ativan taper. Her CIWA scores yesterday ranged from 0-2. Her Ativan taper is to be advanced after today to 1 mg every 12 hours. She is an anticipated discharge for tomorrow and is to finish her Ativan taper at home. She is to follow-up with an outpatient IOP program, patient reports trying to get into the [facility] program and will follow-up as an outpatient. EtOH withdrawal/abuse/dependence Patient with history of multiple admissions for alcohol detox, alcohol withdrawal seizures anxiety, and depression presented to the ED requesting alcohol detox stating last drink was just prior to admission. Patient reportedly drinks 6-7 cans of beer in addition to hard liquor each day. She was reportedly sober for 1-2 months the beginning of 2015 and began drinking shortly thereafter up until admission. Patient was admitted to the intensive care unit and required an Ativan drip before being transferred to the general medicine floor for further management and care. -Gen. Medicine -CIWA protocol -Ativan 1 mg by mouth every 8 hours (05/28/16) -Ativan 1 mg by mouth every 12 hours (05/29/16) -Ativan when necessary per [facility] -Thiamine/folic acid/multivitamin -Psych consult History of seizure disorder -Carbamazepine 20 mg by mouth twice a day -Gabapentin 300 mg by mouth 3 times a day Anxiety/depression-Celexa 20 mg by mouth daily Current every day smoker-nicotine 14 mg patch daily Pain Plan-oxycodone Diet-regular diet DVT prophylaxis-subcutaneous heparin CODE STATUS-full code Problem List: 1. Alcohol dependence Pain Ratin Pain Location: None Pain Goal: Remain pain free Pain Plan: See assessment Tomorrow's Labs & Rationales: None PRINCESS DOUGHERTY,KARLY 05/28/16 1126: Attending MD Review Statement Attending Statement Attending MD Statement: examined this patient, discuss w/resident/PA/PROGRAM MANAGEMENT MANAGER, agreed w/resident/PA/PROGRAM MANAGEMENT MANAGER, reviewed EMR data (avail), discussed with nursing, discussed with case mgmt, amended to note Attending Assessment/Plan: Patient seen and examined. Resting comfortably limits in any distress. She reports feeling better this morning. She tolerated breakfast with no complaints. She required any additional dose of Ativan be on her taper. She is not agitated or in any distress. We we'll continue to taper her Ativan. Tomorrow she'll be due for to dose of Ativan@1 more dose Wednesday. She may be discharged home after the morning dose of Ativan tomorrow with prescriptions for 2 more doses.
[2016-05-28 14:16] VITALS: BP 126/94
[2016-05-28 20:00] VITALS: BP 110/64
[2016-05-28 23:30] VITALS: BP 108/72
[2016-05-29] VITALS: BP 108/72
--- NOTE | 2016-05-29 07:25 | PN- Housestaff ---
See Addendum MARY DOUGHERTY,VIVIANE 05/29/16 0724: Subjective Follow-up For: EtOH withdrawal/abuse/dependence Subjective: Patient seen and examined. She is seen lying flat in bed resting comfortably. She appears to be in no acute distress. She reports feeling well and admits that her diarrhea has resolved and that her tremors have almomst completely gone. She has no new subjective complaints. Additionally she denies any headache, fever, chills, chest pain, shortness of breath, nausea, vomiting, diarrhea. No overnight events reported. Review of Systems Constitutional: Reports: see HPI. Objective Last 24 Hrs of Vital Signs/I&O Vital Signs Date Time Temp Pulse Resp B/P Pulse O2 O2 Flow FiO2 Ox Delivery Rate 05/29 0730 99.0 78 18 110/72 95 Room Air 05/29 0000 Room Air 05/29 0000 98.3 82 20 108/72 05/28 2330 98.3 82 20 108/72 97 Room Air 05/28 2000 78 18 110/64 05/28 1416 98.6 85 20 126/94 95 05/28 0955 101 100/60 Intake & Output 05/29 1600 05/29 0800 05/29 0000 Intake Total 420 Output Total 800 Balance -380 Intake, Oral 420 Output, Urine 800 Physical Exam General Appearance: Alert, Oriented X3, Cooperative, No Acute Distress Other Physical Findings: General -well-developed, well-nourished young woman in no acute distress HEENT - NCAT, PERRL, EOMI, anicteric sclera Cardio - S1, S2 w/o murmurs/gallops/rubs Resp -scant bibasilar wheezing without crackles/rhonchi GI - soft, nontender, nondistended, bowel sounds present Neuro - Awake and alert, CN II - XII grossly intact Extremities -normal pulses, no cyanosis/clubbing/edema Current Medications: Current Medications Sig/Carola Start time Last Medication Dose Route Stop Time Status Admin Albuterol Sulfate 2 PUF Q4P PRN 05/28 1000 AC INH Albuterol Sulfate 3 ML Q4H PRN 05/23 1130 DC 05/24 INH 1330 Carbamazepine 200 MG BID 05/21 1342 AC 05/28 PO 2153 Citalopram 20 MG DAILY 05/21 1342 AC 05/28 Hydrobromide PO 0955 Ferrous Sulfate 325 MG DAILY 05/21 1343 AC 05/28 PO 0955 Gabapentin 300 MG TID 05/21 1000 AC 05/28 PO 2153 Heparin Sodium 5,000 UNIT Q8 05/25 1525 AC 05/29 (Porcine) SC 0616 Lorazepam 1 MG DAILY 05/29 1000 CAN PO Lorazepam 1 MG Q8 05/28 1400 DC 05/29 PO 05/29 0601 0611 Metoprolol Succinate 50 MG DAILY 05/21 1000 AC 05/28 PO 0955 Multivitamins 1 TAB DAILY 05/24 1000 AC 05/28 PO 0955 Nicotine 14 MG DAILY 05/21 1000 AC 05/28 TOP 0956 Omeprazole 40 MG DAILY AC 05/22 0946 AC 05/29 PO 0611 Phosphate 250 MG PC AND AT BEDTIME 05/22 0900 AC 05/28 PO 2153 Sodium Chloride 2 SPRAY Q4 HRS NEEDED PRN 05/24 0945 AC ZENA Thiamine HCl 100 MG DAILY 05/24 1000 AC 05/28 PO 0955 Assessment/Plan Assessment: Patient had CIWA score ranging 0-4 yesterday. She is tolerating her ativan taper well. She is to be discharged to home today with a short prescription of oral ativan to finish her ativan taper. She is to follow up with [facility] for further evaluation of her alcohol dependence. EtOH withdrawal/abuse/dependence Patient with history of multiple admissions for alcohol detox, alcohol withdrawal seizures anxiety, and depression presented to the ED requesting alcohol detox stating last drink was just prior to admission. Patient reportedly drinks 6-7 cans of beer in addition to hard liquor each day. She was reportedly sober for 1-2 months the beginning of 2015 and began drinking shortly thereafter up until admission. Patient was admitted to the intensive care unit and required an Ativan drip before being transferred to the general medicine floor for further management and care. -Gen. Medicine -CIWA protocol -Ativan 1 mg by mouth every 12 hours (05/29/16) -Ativan when necessary per CIWA -Thiamine/folic acid/multivitamin -Psych consult History of seizure disorder -Carbamazepine 20 mg by mouth twice a day -Gabapentin 300 mg by mouth 3 times a day Anxiety/depression-Celexa 20 mg by mouth daily Current every day smoker-nicotine 14 mg patch daily Pain Plan-oxycodone Diet-regular diet DVT prophylaxis-subcutaneous heparin CODE STATUS-full code Problem List: 1. Alcohol dependence Pain Ratin Pain Location: None Pain Goal: Remain pain free Pain Plan: See assessment Tomorrow's Labs & Rationales: None
[2016-05-29] MEDS ORDERED: ATIVAN1 M1 PO ×2 (07:29→07:37)
[2016-05-29 07:30] VITALS: BP 110/72
--- NOTE | 2016-05-29 07:36 | Patient Discharge Instructions ---
Discharge Instructions General Discharge Information Special Instructions: Continue to take ativan as directed, no not miss a dose. Stop drinking alcohol. Make an appointment with [facility] for further care. Follow up with your primary care provider within two weeks of discharge. Acute Coronary Syndrome Inclusion Criteria At DC or during hospital stay patient has or had the following: ACS DIAGNOSIS No Discharge Core Measures Meds if any: Prescribed or Continued at Discharge Meds if any: NOT Prescribed or Continued at Discharge Congestive Heart Failure Inclusion Criteria At DC or during hospital stay patient has or had the following: CHF DIAGNOSIS No Discharge Core Measures Meds if any: Prescribed or Continued at Discharge Meds if any: NOT Prescribed or Continued at Discharge Cerebrovascular accident Inclusion Criteria At DC or during hospital stay patient has or had the following: CVA/TIA Diagnosis No Discharge Core Measures Meds if any: Prescribed or Continued at Discharge Meds if any: NOT Prescribed or Continued at Discharge Venous thromboembolism Inclusion Criteria VTE Diagnosis No VTE Type NONE VTE Confirmed by (Test) NONE Discharge Core Measures - Per Current guidelines, there needs to be overlap - treatment for the first 5 days of Warfarin therapy. - If discharged on Warfarin prior to 5 days of - overlap therapy, the patient will need to be - assessed for post discharge needs including - *Post discharge parental anticoagulation - *Warfarin and/or parental anticoagulation education - *Follow up date to check INR post discharge At least 5 days overlap therapy as Inpatient No Meds if any: Prescribed or Continued at Discharge Note: Overlap Therapy is Warfarin and Anticoagulant Meds if any: NOT Prescribed or Continued at Discharge
[2016-05-29 10:42] VITALS: BP 110/72
--- NOTE | 2016-06-01 08:41 | Discharge Summary ---
Visit Information Visit Dates Admission Date: 05/21/16 Discharge Date: 05/29/16 Hospital Course Course Attending Physician: KARLY SÁNCHEZ M.D Primary Care Physician: RIP MERCEDES MD Hospital Course: 35 year old woman with past medical history of EtOH abuse/withdrawal/dependence, EtOH withdrawal seizures, depression/anxiety, asthma, and peripheral neuropathy seen for evaluation in the [place] ED requesting alcohol detox. Patient reported that she was an every day drinker consuming 6-7 beers per day in addition to hard liquor. She reported an alcohol withdrawal seizure approximately 6 years ago without prior admission to the ICU or an ativan drip. She reported symptoms of tremor, palpitations, chest tightness, and hot flashes with associated nausea and nonbloody bilious vomiting. ED Course: -Vitals: Tempt 97.4-98.7, HR 67-101, RR 18-20, BP 102-109/58-80, 94-98% on Room Air -Significant Labs: WBC 8.1, Hgb/Hct 12.6/35.8, Plt 115, AG 19, BUN/Cr 2/0.5, Mg 1.3, AST/ALT 420/196, ALK 223, Serum Alcohol 377, Magnesium 1.3, Urine toxicology: negative -Studies: EKG NSR EtOH abuse/withdrawal/dependence/Electrolyte Abnormalities Patient was given oral ativan in the ED but soon started on an Ativan drip. Patient was admitted to the intensive care unit and continued on the ativan drip. She was given a banana bag and converted to oral thiamine/folate/ multivitamine. Electrolytes were monitored and repleated as necessary. Psychiatry/social work consults were placed. Treatment regimens to including an oral benzodiazepine taper and haldol were recommended and followed. Patient was continued on an oral ativan taper and successfully weaned with low CIWA scores noted. Patient was discharged to home to complete the remainder of her ativan taper and to follow up with an outpatient or inpatient alcohol abuse program; she reports that she intends to attend [facility] for this. She was encouraged to abstain from further alcohol use. Transaminitis Liver function tests were found to be initially elevated most likely secondary to alchol abuse. Patients symptoms of nausea and vomiting were most likely secondary to alcohol intoxication and not that of an acute abdominal pathology. Liver functions tests were periodically monitored and demonstrated marked improvement; Total bilirubin remained elevated upon discharge. Abdominal ultrasdound demonstrated a moderately enlarged liver consistent with hepatic steatosis. Thrombocytopenia Most likely due to bone marrow suppression from extensive alcohol use. Interval monitoring with complete blood counts demonstrated mild improvement at time of discharge. Allergies: Coded Allergies: Sulfa (Sulfonamide Antibiotics) (UNKNOWN 05/20/16) Significant Procedures: SERVICE DATE: 05/23/16- EXAM TYPE: RAD - XRY-PORTABLE CHEST XRAY IMPRESSION: Limited study secondary to technical factors and hypoventilation. Findings suspicious for left lower lobe pneumonia. There may be a small associated effusion. SERVICE DATE: 05/24/16- EXAM TYPE: US - US-LIMITED ABDOMEN IMPRESSION: The liver is moderately enlarged and echogenic consistent with hepatic steatosis. Penetration of the liver is limited but no focal liver lesions are appreciated. No other findings. Disposition Summary Disposition Principal Diagnosis: EtOH withdrawal Additional Diagnosis: Transaminitis Discharge Disposition: home or self care Discharge Instructions General Discharge Information Code Status: Full Code Patient's Diet: Regular Diet Patient's Activity: Return to full activity as tolerated Follow-Up Instructions/Appts: Continue to take ativan as directed, no not miss a dose. Stop drinking alcohol. Make an appointment with [facility] for further care. Follow up with your primary care provider within two weeks of discharge. Medications at Discharge Discharge Medications: Continue taking these medications: Citalopram Hydrobromide (Citalopram HBr) 20 MG TABLET 1 Tablet ORAL DAILY Comments: Last Taken: 05/29/16 Time: 10AM Pantoprazole Sodium (Protonix) 40 MG TABLET.DR 1 Tablet ORAL DAILY Comments: NOT GIVEN IN HOSPITAL Gabapentin (Gabapentin) 300 MG CAPSULE 1 Capsule ORAL THREE TIMES DAILY Qty = 90 Comments: Last Taken:05/29/16 Time: 10AM Carbamazepine (Tegretol XR) 200 MG TAB.ER.12H 1 Tablet ORAL TWICE DAILY Qty = 60 Comments: Last Taken: 05/29/16 Time: 10AM Metoprolol Succinate (Metoprolol Succinate) 50 MG TAB.ER.24H 1 Tablet ORAL DAILY Qty = 30 Comments: Last Taken: 05/29/16 Time: 10AM Ferrous Sulfate (Ferrous Sulfate) 325 MG (65 MG IRON) TABLET 1 Tablet ORAL DAILY Comments: Last Taken: 05/29/16 Time: 10AM Folic Acid (Folic Acid) 0.8 MG TABLET 1 Tablet ORAL DAILY Comments: Last Taken: 05/29/16 Time: 10AM Vitamin C/Biotin (Wbwi-Obee-Qctsd Gummies) 50 MG-1,250 MCG TAB.CHEW 2 Tablet ORAL DAILY Comments: NOT GIVEN IN HOSPITAL Start taking the following new medications: Lorazepam (Ativan) 1 MG TABLET 1 Tablet ORAL TAPER Qty = 3 No Refills Instructions: TAKE ONE TABLET IN THE EVENING ON 05/29/16 TAKE ONE TABLET IN THE MORNING ON 05/30/16 TAKE ONE TABLET IN THE MORNING ON 05/31/16 THEN STOP Comments: Last Taken: 05/29/16 Time: 6AM Copies To: FALLON DOUGHERTY,NICKOLAS Douglass; MAGO DOUGHERTY,RIP Beck Attending MD Review Statement Documenting Attending: KARLY SÁNCHEZ M.D Other Findings: I have reviewed the discharge summary
== END 2016-05-29 11:54 | DRG 775 ==
LOC: ENRESERVDT → CANRESERV → ENRESERVTM → ERH 12:08 → ERHI 05-21 05:09 → CRI 05-21 05:09 → 2NA 05-21 05:09 → ENPENDDIS 05-21 05:09 → CRI 05-21 08:01 → 2NA 05-25 18:42
PROVIDERS: Emergency Medicine; Internal Medicine; Internal Medicine Hematology & Oncology; Radiology Diagnostic Radiology; Student in an Organized Health Care Education/Training Program; ADMIT Student in an Organized Health Care Education/Training Program
DX: F10.239 Alcohol dependence with withdrawal, unspecified (principal); R56.9 Unspecified convulsions; D69.59 Other secondary thrombocytopenia; E83.39 Other disorders of phosphorus metabolism; E83.42 Hypomagnesemia; E83.51 Hypocalcemia; G62.9 Polyneuropathy, unspecified; K70.10 Alcoholic hepatitis without ascites; J45.909 Unspecified asthma, uncomplicated; F32.9 Major depressive disorder, single episode, unspecified; F41.9 Anxiety disorder, unspecified; F17.210 Nicotine dependence, cigarettes, uncomplicated
CPT/HCPCS: 2NAP; CCU; 36415; 80307; 81001; 82436; 87040; 87045; 87086; 87328; 87329; 87804; 87804-59; 93005; 93010; 97112-GO; 97116-GO; 97161-GP; G0480; J1644; J2060; J2405; J3490; J7040; J7060

== ENCOUNTER 2016-07-20 17:11 | Inpatient (IN) | payer OTHER ==
[~2016-07-20] VITALS: Ht 162.6 cm; Wt 72.6 kg
[~2016-07-20 17:11] MED LIST changes: +ATIVAN1 M1 PO; +CLINDAMYCIN HC300 M1 PO; +FERROUS SULFAT325 M3 PO; +FOLIC ACID0.8 M2 PO; +GABAPENTIN300 M2 PO; +HAIR-SKIN-NAIL1 EACH PO; +METOPROLOL SUCC50 M2 PO; +TEGRETOL XR200 M1 PO; +TERBINAFINE HC250 MG PO
--- NOTE | 2016-07-20 17:12 | NUR ---
Informed waiting has been performed. PT AWARE OF 2 TO 3 HOUR WAIT
--- NOTE | 2016-07-20 17:16 | NUR ---
36 YO FEMALE TO TRIAGE REQUESTING ETOH DETOX. STATES SHE DRINKS BEER DAILY, UNSURE OF AMOUNT. DENIES SI/HI. PT HERE WITH A FRIEND. PT INTOXICATED AT THIS TIME. PT STATES HX OF SEIZURES WITH DETOXING.
--- NOTE | 2016-07-20 18:48 | ED PSYCHIATRIC COMPLAINT ---
History of Present Illness General Chief Complaint: ETOH/Drug Related Complaint Stated Complaint: REQUESTING ETOH DETOX Source: patient Exam Limitations: intoxication, physical impairment Vital Signs & Intake/Output Vital Signs & Intake/Output Vital Signs Date Time Temp Pulse Resp B/P B/P Pulse O2 O2 Flow FiO2 Mean Ox Delivery Rate 06 1059 98.2 80 16 107/69 06/06 1059 98.2 80 18 107/69 95 Room Air 06/06 0851 97.2 90 18 118/82 06/06 0851 97.2 90 18 118/82 95 Room Air 06/06 0643 97.2 87 20 111/65 06/06 0641 97.2 87 20 117/65 94 Room Air 06/06 0356 97.1 85 20 114/72 06/06 0356 97.1 85 20 114/72 98 Room Air 06/06 0156 97.0 70 20 128/84 06/06 0001 97.0 95 20 138/88 06/05 2048 98.1 90 16 111/55 06/05 2048 98.1 90 16 111/55 96 Room Air 06/05 1910 Room Air 06/05 1716 98.4 76 18 108/76 98 Room Air ED Intake and Output 06/06 0000 06/05 1200 Intake Total Output Total Balance Patient 140 lb Weight Weight Reported by Patient Measurement Method Allergies Coded Allergies: Sulfa (Sulfonamide Antibiotics) (UNKNOWN 05/20/16) Triage Note: 36 YO FEMALE TO TRIAGE REQUESTING ETOH DETOX. STATES SHE DRINKS BEER DAILY, UNSURE OF AMOUNT. DENIES SI/HI. PT HERE WITH A FRIEND. PT INTOXICATED AT THIS TIME. PT STATES HX OF SEIZURES WITH DETOXING. Triage Nurses Notes Reviewed? yes Onset: Abrupt Duration: day(s): Timing: recent history : No Patient currently breastfeeds: No HPI: 07/20/16 7 pm 36-year-old female presents to the emergency department complaining of alcohol intoxication and help with her alcohol dependency problem. The patient states she's been drinking daily for the past several days. She says she's had prior episodes where she could not stop drinking. She's been admitted in the past. She denies a history of withdrawal seizures but says that she's gone into cardiac arrest and her heart has stopped several times in the past she cannot clearly describe the events. The onset of the symptoms have been abrupt, the duration is unclear, the severity is significant as her symptoms required her to come to the emergency department for care. (ROSALIA DUFF DO) Reconcile Medications Carbamazepine (Tegretol XR) 200 MG TAB.ER.12H 1 TAB PO BID UNKNOWN (Reported) Citalopram Hydrobromide (Citalopram HBr) 20 MG TABLET 1 TAB PO DAILY MENTAL HEALTH (Reported) Ferrous Sulfate 325 MG (65 MG IRON) TABLET 1 TAB PO DAILY SUPPLEMENT ( Reported) Folic Acid 0.8 MG TABLET 1 TAB PO DAILY SUPPLEMENT (Reported) Gabapentin 300 MG CAPSULE 1 CAP PO TID UNKNOWN (Reported) Metoprolol Succinate 50 MG TAB.ER.24H 1 TAB PO DAILY HEART (Reported) Pantoprazole Sodium (Protonix) 40 MG TABLET.DR 1 TAB PO DAILY GI (Reported) Terbinafine HCl 250 MG TABLET 1 TAB PO DAILY LEFT BIG TOE (Reported) Vitamin C/Biotin (Ebde-Kkrn-Wmowu Gummies) 50 MG-1,250 MCG TAB.CHEW 2 TAB PO DAILY SUPPLEMENT (Reported) (JESSIE DOUGHERTY,MARLENY Beck) Past History Travel History Traveled to [place] past 21 day No Medical History Any Pertinent Medical History? see below for history Neurological: peripheral neuropathy, seizure (EtOH/withdrawal/febrile) EENT: NONE Cardiovascular: aortic aneurysm Respiratory: asthma Gastrointestinal: alcoholic hepatitis Hepatic: hepatic encephalopathy (questionable) Renal: NONE Musculoskeletal: NONE Psychiatric: alcohol dependence, anxiety, IV drug abuse, ANXIETY/DEPRESSION substance abuse Endocrine: NONE, hypothyroidism (borderline) Blood Disorders: thrombocytopenia Cancer(s): NONE SERVICES REP/Reproductive: NONE History of MRSA: No History of VRE: Yes History of CDIFF: No Influenza Vaccine: 04/15/16 Surgical History Surgical History: appendectomy Psychosocial History Who do you live with Patient/Self Services at Home None What is your primary language Mongolian Tobacco Use: Current Daily Use Daily Tobacco Use Amount/Type: => 5 Cigarettes daily ETOH Use: alcoholic Illicit Drug Use: denies illicit drug use Family History Family History, If Any: No Known Family History. Hx Contributory? No (ROSALIA DUFF DO) Review of Systems Review of Systems Constitutional: Denies: fever. EENTM: Denies: visual changes. Respiratory: Denies: short of breath. Cardiovascular: Denies: chest pain. GI: Reports: nausea. Denies: abdominal pain. Genitourinary: Reports: no symptoms. Musculoskeletal: Reports: no symptoms. Skin: Denies: rash. Neurological/Psychological: Denies: depressed, headache. Hematologic/Endocrine: Reports: no symptoms. Immunologic/Allergic: Reports: no symptoms. (ROSALIA DUFF DO) Physical Exam Physical Exam General Appearance: alert, awake, anxious, moderate distress Head: atraumatic, normal appearance Eyes: Bilateral: normal appearance, PERRL, EOMI. Ears, Nose, Throat: normal pharynx, normal ENT inspection Neck: normal inspection, supple Respiratory: normal breath sounds, chest non-tender, no respiratory distress Cardiovascular: regular rate/rhythm Gastrointestinal: soft, non-tender Extremities: normal range of motion Neurological/Psychiatric: no motor/sensory deficits, awake, alert, anxious, oriented x 3 Appearance/Memory/Insight: disheveled Behavoir/Eye Contact/Speech: cooperative Thoughts/Hallucinations: no apparent hallucination Skin: intact, normal color, warm/dry SAD PERSONS Done? patient not suicidal (ROSALIA DUFF DO) Progress Differential Diagnosis: drug intoxication, drug overdose, drug withdrawal, alcohol intoxication Plan of Care: Orders Procedure Date/time Status Regular Diet 07/21 L Active Regular Diet 07/21 B Complete Patient Data 07/21 1056 Active ED Holding Orders 07/21 1036 Active Admit to inpatient 07/21 1036 Active Vital Signs 07/21 1036 Active Code Status 07/21 1036 Active CASE MANAGEMENT CONSULT 07/20 2350 Active Add-on Test (ER Only) 07/20 221 Active TROPONIN LEVEL 07/20 2209 Complete TROPONIN LEVEL 07/20 1956 Complete EKG 07/21 1915 Active URINE 07/20 1914 Complete URINE DRUG SCREEN FOR ER ONLY 07/20 1914 Complete ETHANOL 07/20 1914 Complete COMPREHENSIVE METABOLIC PANEL 07/20 1914 Complete CBC WITHOUT DIFFERENTIAL 07/20 1914 Complete Laboratory Tests 07/20/16 2318: Troponin I < 0.01 07/20/161956: Anion Gap 17 H, Estimated GFR > 60, BUN/Creatinine Ratio 4.0 L, Glucose 91, Calcium 9.1, Total Bilirubin 0.4, AST 60 H, ALT 56 H, Alkaline Phosphatase 112 , Troponin I < 0.01, Total Protein 8.3 H, Albumin 4.7, Globulin 3.6, Albumin/ Globulin Ratio 1.3, CBC w Diff NO MAN DIFF REQ, RBC 4.56, MCV 100.8 H, MCH 33.8 H, RDW 13.8, MPV 9.1, Gran % 53.1, Lymphocytes % 38.4, Monocytes % 5.8, Eosinophils % 1.0, Basophils % 1.7, Absolute Granulocytes 5.0, Absolute Lymphocytes 3.6 H, Absolute Monocytes 0.5, Absolute Eosinophils 0.1, Absolute Basophils 0.2, PUBS MCHC 33.5, Serum Alcohol 342.0 07/20/16 1936: Urine Opiates Screen < 100.00, Methadone Screen < 40, Barbiturate Screen < 60, Ur Phencyclidine Scrn < 6.00, Amphetamines Screen 140, U Benzodiazepines Scrn < 85, Urine Cocaine Screen < 50, Urine Cannabis Screen < 5.00, Urine Test NEGATIVE 7:08 AM PATIENT SIGNED OUT TO ME BY DR ROMAN. PENDING CASE MANAGEMENT FOR GRISKY DETOX. 9:29 AM C/W CASE MANAGEMENT, PENDING APPROVAL FOR HUSKY. (JENNIFER ENAMORADO MD) Initial ED EKG: pending (ROSALIA DUFF DO) Initial ED EKG: NSR, no ST T wave changes Hand-Off Endorsed To: JENNIFER ENAMORADO MD Endorsed Time: 0700 Pending: consult (CASE MANAGEMENT) Comments: Patient CIWAS were elevated to 17. She does have a history of withdrawal seizures. She meets criteria for admission to the hospital. We'll need state approval. (JESSIE DOUGHERTY,MARLENY Beck) Departure Departure Disposition: STILL A PATIENT Condition: Stable Clinical Impression Primary Impression: Alcohol intoxication Secondary Impressions: Alcohol dependency Referrals: MAGO DOUGHERTY,RIP Beck (PCP/Family) Departure Forms: Customer Survey General Discharge Information Comments 07/20/16 Labs have been sent. The patient was signed out to Dr. Roman at 7 PM. (ROSALIA DUFF DO) Departure Time of Disposition: 1013 Admission Note Spoke With: GENESIS BRITTON MD Documentation of Exam: Documentation of any treatments & extenuating circumstances including Concerns Regarding Discharge (functional status, medication knowledge or non-compliance, living conditions, etc.) that warrant an admission rather than observation: [ ciwa protocol, ativan taper, monitor i/o, seizure precautions, crisis consult] (JENNIFER ENMAORADO MD)
--- NOTE | 2016-07-20 18:55 | NUR ---
DR DUFF AT BEDSIDE FOR EVAL
--- NOTE | 2016-07-20 19:00 | NUR ---
SECURITY AT BEDSIDE FOR WANDING PT CHANGED INTO BLUE SCRUBS
[2016-07-20] MEDS ORDERED: TERBINAFINE HC250 MG PO (19:39)
--- NOTE | 2016-07-20 19:58 | NUR ---
PT STATES HER FRIEND DROPPED HER OFF FOR ETOH DETOX. PT REPORTS SHE HAS BEEN ON A BINGE FOR 1.5 WEEKS, DRINKING ALL DAY AND NIGHT, MOSTLY BEER PLUS SOME SHOTS. PT REPORTS HX OF SEIZURES AND 3 FL'S WITH CARDIAC ARRESTS. PT REPORTS SHE IS STARTING TO FEEL WITHDRAWAL SYMPTOMS STARTING. SITTER AT BEDSIDE. PT TEARFUL DURING INTERVIEW.
[2016-07-20 20:08] LABS: ABSOLUTE BASOPHIL COUNT 0.2 /CUMM (0.0-0.2); ABSOLUTE EOSINOPHIL COUNT 0.1 /CUMM (0.0-0.7); ABSOLUTE LYMPH COUNT 3.6 /CUMM (1.2-3.4); ABSOLUTE MONOCYTE COUNT 0.5 /CUMM (0.10-0.60); BASOPHIL % 1.7 % (0.0-2.0); GRANULOCYTE % 53.1 % (42.2-75.2); MEAN CORPUSCULAR HGB 33.8 PG (27.0-31.0); MEAN CORPUSCULAR HGB CONC 33.5 G/DL (33.0-37.0); MEAN CORPUSCULAR VOLUME 100.8 FL (81.0-99.0); MEAN PLATELET VOLUME 9.1 FL (7.4-10.4); PLATELET COUNT 141 /CUMM (130-400); RBC DISTRIBUTION WIDTH 13.8 % (11.5-14.5); RED BLOOD CELL CT 4.56 /CUMM (4.20-5.40); WHITE BLOOD CELL COUNT 9.5 /CUMM (4.8-10.8)
[2016-07-20 20:48] VITALS: BP 111/55
--- NOTE | 2016-07-20 20:49 | NUR ---
EKG PERFORMED. VSS AT THIS TIME. CIWA = 10. SITTER AT BEDSIDE.
[2016-07-21] VITALS (10 sets, daily range): BP systolic 107–138; BP diastolic 65–88
--- NOTE | 2016-07-21 02:15 | NUR ---
PT REPORTS RIGHT KNEE PAIN, 600MG MOTRIN PO PER DR ROMAN
--- NOTE | 2016-07-21 03:54 | NUR ---
TO ROOM 6 UPON ARRIVAL TO ROOM PT EXPORESSES DESIRE TO HAVE ATIVAN AND THE TV, "I CANT BELIEVE I AM FINALLY IN A ROOM" PT REEDUCATED ON WHY SHE WAS IN THE [facility]. PT EXHIBITING NO S/S OF ETOH WITHDRAWAL. VSS
--- NOTE | 2016-07-21 04:04 | NUR ---
PT REPORTS UNABLE TO VOID AT THIS TIME, DOES NOT FEEL THE URGE TO GO, PT 2ND LITER PAUL WILL MONITOR. MD AWARE/
--- NOTE | 2016-07-21 06:45 | NUR ---
PT AWAKE AND ALERT AT THIS TIME, COMPLAINS OF FEELING SHAKEY , MILD VISIBLE TREMORS NOTED AT THIS TIME, ALSO COMPLAINS OF NAUSEA AND HEADACHE OF 3/10 AT THIS TIME. CIWA 9. NSR HR 87
--- NOTE | 2016-07-21 06:49 | NUR ---
PT MEDICATED AT THIS TIME WITH 2 MG IV ATIVAN, PT ALSO COMPLAINS THAT WHEN SHE WENT TO STAND EARLIER SHE STARTED TO HAVE PAIN IN HER RIGHT KNEE AND THE KNEE STARTED TO GIVE OUT. PT REQUESTING THAT A DOCTOR LOOK AT . MD AWARE AND PT ALSO MADE AWARE THAT THE MD WILL BE IN SOON HE CAN , BUT THAT HE IS IN WITH A CRITICAL PATIENT AT THIS TIME
--- NOTE | 2016-07-21 07:19 | NUR ---
PT AWAKE AT THIS TIME, WATCHING TV WITH NO COMPLAINTS BREAKFAST TRAY PROVIDED. PT DENIES NEEDING ANYTHING ELSE AT THIS TIME
--- NOTE | 2016-07-21 09:19 | NUR ---
PT STATES SHE FEELS BETTER FROM PREVIOUSLY GIVEN MEDICATIONS. ONLY C/O AT THIS TIME IS SLIGHT TREMORS AND R KNEE PAIN. PER DR ENAMORADO, MED WITH 1MG PO ATIVAN AND 1L NORMAL SALINE INFUSING. MD ENAMORADO TO ASSESS KNEE PT STATES SHE WILL REST WHILE AWAITING CASE MANAGEMENT.
--- NOTE | 2016-07-21 09:47 | NUR ---
DR ENAMORADO INTO EVAL PT C/O R KNEE PAIN MED WITH TORADOL PER APR. TAKEN TO RADIOLOGY VIA STRETCHER
--- NOTE | 2016-07-21 10:35 | NUR ---
Case Management-Authorization request for inpatient detox submitted at 930 a.m. patient meets criteria for admission. Advised Dr. Turcios she can admit pending the authorization
--- NOTE | 2016-07-21 10:49 | RADIOLOGY REPORT ---
EXAMINATION: XR KNEE, RIGHT CLINICAL INFORMATION: Pain and swelling. COMPARISON: None TECHNIQUE: Four views of the right knee. FINDINGS: Bone mineral density is maintained without evidence of fracture or dislocation. No focal osseous lesions are seen. Joint space is maintained without productive or erosive changes. There is significant appearing joint effusion. IMPRESSION: Unremarkable right knee.
--- NOTE | 2016-07-21 11:00 | NUR ---
PT AWAKE, ALERT AND SPEAKING CLEARLY WITHOUT COMPLAINTS. TURKEY SANDWICH ORDERED PER REQUEST. PT ONLY C/O TREMORS AT THIS TIME. SLIGHT TREMOR NOTED - NO WORSE THAN ON PREVIOUS CIWA ASSESSMENT. MEDICATED WITH ADDITIONAL 1MG PO ATIVAN AT THIS TIME DENIES NEEDING ANYTHING ELSE. AWAITING ADMISSION
--- NOTE | 2016-07-21 11:51 | NUR ---
07/21 CASE MGMT- [facility] AUTH# [id number] FOR 6 DAYS UNTIL 07/26/16, ADMITTING AND DR EDMOND AWARE.
--- NOTE | 2016-07-21 12:16 | NUR ---
PHARMACY CALLED FOR BANANA BAG
--- NOTE | 2016-07-21 12:17 | History & Physical ---
BLAS CORTES 07/21/16 1215: General Information and HPI MD Statement: I have seen and personally examined DELORIS WINTER and documented this H&P. The patient is a 36 year old F who presented with a patient stated chief complaint of requesting alcohol detox. Source of Information: patient Exam Limitations: no limitations History of Present Illness: This is 36-year-old female with past medical history of alcohol withdrawal, seizure disorder not related to alcohol, asthma not on current medication, depression, anxiety, peripheral neuropathy. Presented to the emergency department requesting alcohol detox. Patient stated that she was sober for a few weeks after last admisison, then started drinking 6-7 cans of beer and nips of 80% alcohol, last drink was yesterday. Admits to prior ICU admission, but no intubation. Admits to 4-5 admission here at [facility], and 2 at [facility]. Denies any tremor, palpitation, chest tightness, heart flashes with sweating. She reports nausea but no vomiting. No hallucinations, no suicidal or homicidal ideations. After last admission, did not follow up with [facility], but attended a few classes which she did not like. No recent stressors. Allergies/Medications Allergies: Coded Allergies: Sulfa (Sulfonamide Antibiotics) (UNKNOWN 05/20/16) Home Med list Carbamazepine (Tegretol XR) 200 MG TAB.ER.12H 1 TAB PO BID UNKNOWN (Reported) Citalopram Hydrobromide (Citalopram HBr) 20 MG TABLET 1 TAB PO DAILY MENTAL HEALTH (Reported) Ferrous Sulfate 325 MG (65 MG IRON) TABLET 1 TAB PO DAILY SUPPLEMENT ( Reported) Folic Acid 0.8 MG TABLET 1 TAB PO DAILY SUPPLEMENT (Reported) Gabapentin 300 MG CAPSULE 1 CAP PO TID UNKNOWN (Reported) Metoprolol Succinate 50 MG TAB.ER.24H 1 TAB PO DAILY HEART (Reported) Pantoprazole Sodium (Protonix) 40 MG TABLET.DR 1 TAB PO DAILY GI (Reported) Terbinafine HCl 250 MG TABLET 1 TAB PO DAILY LEFT BIG TOE (Reported) Vitamin C/Biotin (Regq-Vclx-Ztbdu Gummies) 50 MG-1,250 MCG TAB.CHEW 2 TAB PO DAILY SUPPLEMENT (Reported) Past History Travel History Traveled to [place] past 21 day No Medical History Neurological: peripheral neuropathy, seizure (EtOH/withdrawal/febrile) EENT: NONE Cardiovascular: aortic aneurysm Respiratory: asthma Gastrointestinal: alcoholic hepatitis Hepatic: hepatic encephalopathy (questionable) Renal: NONE Musculoskeletal: NONE Psychiatric: alcohol dependence, anxiety, IV drug abuse, ANXIETY/DEPRESSION substance abuse Endocrine: NONE, hypothyroidism (borderline) Blood Disorders: thrombocytopenia Cancer(s): NONE 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 Psychosocial History Services at Home: None Primary Language: Chinese ETOH Use: alcoholic Illicit Drug Use: denies illicit drug use Living Will? no Power of De Icer Kit Assembler/HCP? no Functional Ability ADLs Independent: dressing, eating, toileting, bathing. Ambulation: independent IADLs Independent: shopping, housework, finances, food prep, telephone, transportation , medication admin. Review of Systems Review of Systems Constitutional: Reports: see HPI. Exam & Diagnostic Data Last 24 Hrs of Vital Signs/I&O Vital Signs Date Time Temp Pulse Resp B/P B/P Pulse O2 O2 Flow FiO2 Mean Ox Delivery Rate 07/21 1212 97.4 98 18 109/74 98 Room Air 06/06 1059 98.2 80 16 107/69 06/06 1059 98.2 80 18 107/69 95 Room Air 06/06 0851 97.2 90 18 118/82 06/06 0851 97.2 90 18 118/82 95 Room Air 06/06 0643 97.2 87 20 111/65 06/06 0641 97.2 87 20 117/65 94 Room Air 06/06 0356 97.1 85 20 114/72 06/06 0356 97.1 85 20 114/72 98 Room Air 06/06 0156 97.0 70 20 128/84 06/06 0001 97.0 95 20 138/88 06/05 2048 98.1 90 16 111/55 06/05 2048 98.1 90 16 111/55 96 Room Air 06/05 1910 Room Air 06/05 1716 98.4 76 18 108/76 98 Room Air Intake & Output /06 1600 06/06 0800 06/06 0000 Intake Total 1000 Output Total Balance 1000 Intake, IV 1000 Patient 140 lb Weight Weight Reported by Patient Measurement Method Physical Exam General Appearance Alert, Oriented X3, Cooperative HEENT Atraumatic, PERRLA Cardiovascular Regular Rate, Normal S1, Normal S2 Lungs Clear to Auscultation, Normal Air Movement Abdomen Normal Bowel Sounds, Soft, No Tenderness Neurological Normal Gait, Normal Speech, Strength at 5/5 X4 Ext Extremities No Clubbing, No Cyanosis Last 24 Hrs of Labs/Deric: Laboratory Tests 07/20/16 2318: Troponin I < 0.01 07/20/161956: Anion Gap 17 H, Estimated GFR > 60, BUN/Creatinine Ratio 4.0 L, Glucose 91, Calcium 9.1, Total Bilirubin 0.4, AST 60 H, ALT 56 H, Alkaline Phosphatase 112 , Troponin I < 0.01, Total Protein 8.3 H, Albumin 4.7, Globulin 3.6, Albumin/ Globulin Ratio 1.3, CBC w Diff NO MAN DIFF REQ, RBC 4.56, MCV 100.8 H, MCH 33.8 H, RDW 13.8, MPV 9.1, Gran % 53.1, Lymphocytes % 38.4, Monocytes % 5.8, Eosinophils % 1.0, Basophils % 1.7, Absolute Granulocytes 5.0, Absolute Lymphocytes 3.6 H, Absolute Monocytes 0.5, Absolute Eosinophils 0.1, Absolute Basophils 0.2, PUBS MCHC 33.5, Serum Alcohol 342.0 07/20/161935: Urine Opiates Screen < 100.00, Methadone Screen < 40, Barbiturate Screen < 60, Ur Phencyclidine Scrn < 6.00, Amphetamines Screen 140, U Benzodiazepines Scrn < 85, Urine Cocaine Screen < 50, Urine Cannabis Screen < 5.00, Urine Test NEGATIVE Assessment/Plan Assessment: 36 year old woman with alcoholic dependence, prior multiple admissions for alcohol withdrawal here for alcohol detox. 1. Alcohol withdrawal: Admit to medicine service. Ativan taper. Ativan per CIWA. Banana bag 1. Closely monitor electrolytes. Continue other medications. -Psych consults -Social consult -Banana bag, folic acid -PPI 2. Seizure disorder: Continue Tegretol. Seizure precautions. 3. Right knee pain: Fracture or dislocation ruled out with right knee x-ray. Control pain with NSAIDs. If no improvement, outpatient MRI and PT. Full code. Regular diet. Lovenox for DVT prophylaxis As Ranked By This Provider Problem List: 1. Depression Core Measures/Miscellaneous Acute Coronary Syndrome ACS Diagnosis: No Cerebrovascular Accident CVA/TIA Diagnosis: No Congestive Heart Failure CHF Diagnosis: No VTE (View Protocol) VTE Risk Factors: Acute medical illness, Age > 40, Immobility, paresis No Mech VTE prophylaxis d/t: No contraindications No VTE Pharm Prophylaxis d/t: No contraindications VTE Diagnosis: No VTE Type: NONE VTE Confirmed by (Test): NONE Sepsis (View Protocol) Severe Sepsis Present: No Septic Shock Septic Shock Present: No Miscellaneous Documentation Attending Case Discussed With: GENESIS BRITTON MD Primary Care Physician: RIP MERCEDES MD Patient sees these Specialists None Level of Patient Care: General Medicine GENESIS BRITTON MD 07/21/167: Attending MD Review Statement Attending Statement Attending MD Statement: examined this patient, discuss w/resident/PA/WASTEWATER MANAGER, agreed w/resident/PA/WASTEWATER MANAGER, reviewed EMR data (avail) Attending Assessment/Plan: 36F PMH EtOH abuse admitted for alcoohol withdrawal with tremors and agitation, scoring >14 on CIWA. Will admit, hydrate, Ativan taper and IV PRN, vitamin supplementation, DVT PPx.
--- NOTE | 2016-07-21 12:21 | NUR ---
NICOTINE PATCH PLACED PER APR, R DELTOID
--- NOTE | 2016-07-21 13:08 | NUR ---
PT REMAINS PLEASANT AND COOPERATIVE WITH NO COMPLAINTS MEDICATED WITH SCHEDULED TEGRETOL, ATIVAN (2MG) AND PRILOSEC PER APR LUNCH ORDERED PER REQUEST (GRILLED CHEESE AND POTATO SOUP) AWAITING BANANA BAG FROM PHARMACY.
--- NOTE | 2016-07-21 13:25 | NUR ---
BANANA BAG INFUSING AT 125 ML/HR PER MAR. PT PROVIDED WITH PITCHER OF ICE WATER TREMORS APPEAR IMPROVED AT THIS TIME PT DENIES ANY COMPLAINTS.
--- NOTE | 2016-07-21 13:31 | NUR ---
LUNCH TRAY PROVIDED
--- NOTE | 2016-07-21 14:55 | NUR ---
PT SLEEPING AT THIS TIME WITH REGULAR RESPIRATIONS NOTED. TREMOR IMPROVED SINCE ADMINISTRATION OF LAST MEDICATIONS. BANANA BAG CONTINUES TO INFUSE AWAITING BED ASSIGNMENT AT THIS TIME
--- NOTE | 2016-07-21 15:04 | NUR ---
PT ADMITTED TO ROOM 236-1
--- NOTE | 2016-07-21 15:35 | NUR ---
REPORT GIVEN TO MAYNOR MARTINEZ. TRANSPORT BOOKED.
--- NOTE | 2016-07-21 16:00 | NUR ---
PT ARRIVED TO FLOOR AT 1600 ON STRETCHER FROM ED TO ROOM 236. PT A/V/OX3. ON RA. IND OOB, AMBULATORY, STEADY GAIT. LUNGS CLEAR, DENIES ANY RESP DISTRESS. +BS, STATES BM WAS 20 MIN EARLIER. REQUESTING DINNER, DIETARY PAGED. HX OF SEIZURES, PRECAUTIONS IN PLACE. CIWA SCORE 0. DENIES ANY PAIN. SKIN INTACT. 22 RH IV INFILTRATED, DISCONTINUED. NEW IV #24 TO ZORAN ESTABLISHED AND BANANA BAG RUNNING @ 125ML/HR. OFFERS NO COMPLAINTS. ORIENTED TO ROOM, CALL EDMOND, STAFF, & SURROUNDINGS. WILL CONTINUE TO MONITOR.
--- NOTE | 2016-07-21 20:48 | Admission Certification ---
Admission Certification Certification Statement - As attending physician, I certify that at the time of - admission, based on clinical presentation, severity of - symptoms, need for further diagnostic testing and - therapeutic interventions, and risk of adverse outcomes - without in-hospital treatment, in my clinical assessment, - this patient requires an acute hospital stay for a minimum - of two nights or longer. I have also considered psychsocial - factors such as support system, advanced age, financial - issues, cognitive issues, and failed out-patient treatments, - past re-admission history, safety of patient, and lack of - compliance as applicable. Specific rationale supporting this admission is: alcohol withdrawal with tremors and agitation
--- NOTE | 2016-07-21 23:43 | NUR ---
PTS BELONGINGS BAG THAT WAS LEFT AT HOSP FROM PREVIOUS VISIT WAS RETURNED TO PT.
[2016-07-22] VITALS: BP 118/70
[2016-07-22 04:00] VITALS: BP 118/70
[2016-07-22 06:00] VITALS: BP 120/72
[2016-07-22 06:20] VITALS: BP 94/60
[2016-07-22 07:50] LABS: ABSOLUTE BASOPHIL COUNT 0 /CUMM (0.0-0.2); ABSOLUTE EOSINOPHIL COUNT 0.1 /CUMM (0.0-0.7); ABSOLUTE GRANULOCYTE CT 4.4 /CUMM (1.4-6.5); ABSOLUTE LYMPH COUNT 1.9 /CUMM (1.2-3.4); ABSOLUTE MONOCYTE COUNT 0.5 /CUMM (0.10-0.60); BASOPHIL % 0.4 % (0.0-2.0); EOSINOPHIL % 1.6 % (0-5); GRANULOCYTE % 63.9 % (42.2-75.2); HEMATOCRIT 41.6 % (37-47); MEAN CORPUSCULAR HGB 33.8 PG (27.0-31.0); MEAN CORPUSCULAR HGB CONC 33.4 G/DL (33.0-37.0); MEAN PLATELET VOLUME 10.4 FL (7.4-10.4); PLATELET COUNT 95 /CUMM (130-400); RBC DISTRIBUTION WIDTH 13.4 % (11.5-14.5); RED BLOOD CELL CT 4.12 /CUMM (4.20-5.40); WHITE BLOOD CELL COUNT 6.9 /CUMM (4.8-10.8)
--- NOTE | 2016-07-22 09:00 | PN- Housestaff ---
DEMETRI VILLATORO MD,[facility] 07/22/16 0859: Subjective Follow-up For: Alcohol withdrawal Complaints: shaking of hands, mild nausea Subjective: Patient overall feels the same as she was yesterday. She was able to sleep overnight but did not require IV plus by mouth scheduled Ativan. Review of Systems Constitutional: Denies: chills, fever. EENTM: Denies: visual changes. Cardiovascular: Denies: chest pain, palpitations. Respiratory: Denies: cough, short of breath. Gastrointestinal: Denies: abdominal pain, nausea, vomiting. Genitourinary: Denies: discharge. Musculoskeletal: Denies: back pain. Objective Last 24 Hrs of Vital Signs/I&O Vital Signs Date Time Temp Pulse Resp B/P B/P Pulse O2 O2 Flow FiO2 Mean Ox Delivery Rate 07/22 0620 98.3 112 20 94/60 96 Room Air / 0600 98.1 95 20 120/72 06/07 0400 98.1 93 20 118/70 06/07 0000 98.1 93 20 118/70 06/06 2233 98.1 93 20 118/70 99 Room Air 06/06 1608 97.7 94 20 120/80 99 Room Air 06/06 1453 97.2 99 18 118/80 06/06 1449 97.2 99 18 118/80 99 Room Air 06/06 1310 97.0 93 18 122/68 06/06 1309 97.0 93 18 122/68 97 Room Air 06/06 1212 97.4 98 18 109/74 98 Room Air Intake & Output / 1600 06/07 0800 06/07 0000 Intake Total 960 1800 Output Total Balance 960 1800 Intake, IV 600 1000 Intake, Oral 360 800 Patient 160 lb Weight Physical Exam General Appearance: Alert, Oriented X3, Cooperative, No Acute Distress Skin: No Rashes HEENT: Atraumatic Neck: Supple, No JVD Lungs: Clear to Auscultation, Normal Air Movement Abdomen: Normal Bowel Sounds, Soft, No Tenderness Neurological: Normal Speech, Strength at 5/5 X4 Ext, Normal Tone, Sensation Intact Extremities: No Clubbing, No Cyanosis, No Edema Vascular: Normal Pulses Current Medications: Current Medications Sig/Carola Start time Last Medication Dose Route Stop Time Status Admin Carbamazepine 200 MG BID 07/21 1230 AC 07/21 PO 2131 Citalopram 20 MG DAILY 07/22 1000 AC Hydrobromide PO Cyanocobalamin/ 1 BAG ONCE ONE 07/21 1200 DC 07/21 Thiamine/Pyridoxine IV 07/21 1959 1325 Dextrose/Water 1,000 ML Enoxaparin Sodium 40 MG DAILY 07/22 1000 CAN SC Ferrous Sulfate 325 MG DAILY 07/22 1000 AC PO Folic Acid 1 MG DAILY 07/22 1000 AC PO Gabapentin 300 MG TID 07/21 1600 AC 07/21 PO 2131 Gabapentin 0 .STK-MED ONE 07/21 1553 DC PO Ibuprofen 400 MG Q6P PRN 07/21 1200 AC 07/22 PO 0844 Ketorolac 15 MG Q6P PRN 07/21 1215 AC 07/22 Tromethamine IV 0519 Lorazepam 0 .STK-MED ONE 07/21 1308 DC PO Lorazepam 2 MG Q6 07/21 1230 AC 07/22 PO 0516 Lorazepam See Dose Q1P PRN 07/21 1200 AC 07/22 Insts (1) IV 1038 Magnesium Sulfate 1 GM Q2H 07/22 0845 AC 07/22 Dextrose/Water 100 ML IV 07/22 1244 1038 Metoprolol Succinate 50 MG DAILY 07/22 1000 AC PO Multivitamins 1 TAB DAILY 07/22 1000 AC PO Nicotine 0 .STK-MED ONE 07/21 1224 DC TOP Nicotine 21 MG DAILY 07/21 1208 AC 07/22 TOP 1004 Omeprazole 40 MG DAILY AC 07/21 1221 AC 07/22 PO 0516 Potassium Chloride 40 MEQ ONCE ONE 07/22 0945 DC 07/22 PO 07/22 0946 1042 Thiamine HCl 100 MG DAILY 07/22 1000 AC PO Trazodone HCl 12.5 MG ONCE ONE 07/21 2145 DC PO 07/21 2146 Dose Instructions: (1)Lorazepam: See admin criteria Last 24 Hrs of Lab/Deric Results Last 24 Hrs of Labs/Mics: Laboratory Tests 07/22/16 0630: Anion Gap 9, Estimated GFR > 60, BUN/Creatinine Ratio 6.7 L, Phosphorus 3.7, Magnesium 1.1 L, Total Bilirubin 0.9, Direct Bilirubin 0.3, AST 27, ALT 33, Alkaline Phosphatase 81, Total Protein 6.5, Albumin 3.4 L, CBC w Diff NO MAN DIFF REQ, RBC 4.12 L, MCV 101.0 H, MCH 33.8 H, RDW 13.4, MPV 10.4, Gran % 63.9, Lymphocytes % 27.2, Monocytes % 6.9, Eosinophils % 1.6, Basophils % 0.4, Absolute Granulocytes 4.4, Absolute Lymphocytes 1.9, Absolute Monocytes 0.5, Absolute Eosinophils 0.1, Absolute Basophils 0, PUBS MCHC 33.4 Lines/Diet/Fluids Lines: peripheral lines Restraints: none Assessment/Plan Assessment: 36-year-old female with past medical history significant for alcohol dependence, increased heart rate and history of multiple admissions for alcohol dependence/ withdrawal in the past admitted for what entry alcohol detox. According dependence/withdrawal Blood alcohol level of 342 on admission Patient's CIWA score ranged between 0-9 overnight Continue with scheduled by mouth Ativan and when necessary IV Ativan Continue with thiamine B12 and folic acid Hypomagnesemia Most likely secondary to chronic malnutrition as patient denied any recent history of diarrhea We will repeat electrolytes appropriately History of seizure disorder Continue with Tegretol Thrombocytopenia Hold subcutaneous heparin for now continue with Alps Social work consult Psych consult Patient is full code Patient is on regular diet Patient is on Lovenox for DVT prophylaxis Patient is on pain management Problem List: 1. Alcohol dependence Pain Ratin Pain Location: overall Pain Goal: Pain 4 or less Pain Plan: Pain management with pain medications ordered Tomorrow's Labs & Rationales: BEP for electrolytes DVT/Prophylaxis: MARIA TERESA Rubin 07/22/16 0959: Attending MD Review Statement Attending Statement Attending MD Statement: examined this patient, discuss w/resident/PA/REFRIGERATION ENGINE OPERATOR, agreed w/resident/PA/REFRIGERATION ENGINE OPERATOR, discussed with family, reviewed EMR data (avail), discussed with nursing, discussed with case mgmt, reviewed images, amended to note Attending Assessment/Plan: 36F PMH EtOH abuse admitted for alcoohol withdrawal with tremors and agitation, scoring 9-14 on CIWA. c/w admit, hydration, Ativan taper and IV PRN, vitamin supplementation, replace electrolytes, thiamine, folic acid, clonidine prn for bp. FRANCOISE 342. psych and SW consult. DVT PPx.
[2016-07-22 14:50] VITALS: BP 140/70
[2016-07-22 21:32] VITALS: BP 125/80
--- NOTE | 2016-07-23 08:26 | Incdntl Nt Psy ---
Incidental Note Notation: 36 SCF present for ETOH detox. Now requests to leave AMA. Assessment/Plan Assessment: Subjective: Patient states "I'd rather go home, I have numbers of programs I can call, I'd rather just take care of it myself. I would like to leave" Objective: Current Medications Sig/Carola Start time Last Medication Dose Route Stop Time Status Admin Carbamazepine 200 MG BID 07/21 1230 AC 07/22 PO 2139 Citalopram 20 MG DAILY 07/22 1000 AC 07/22 Hydrobromide PO 1218 Enoxaparin Sodium 40 MG DAILY 07/22 1000 CAN SC Ferrous Sulfate 325 MG DAILY 07/22 1000 AC 07/22 PO 1218 Folic Acid 1 MG DAILY 07/22 1000 AC 07/22 PO 1218 Gabapentin 300 MG TID 07/21 1600 AC 07/22 PO 2139 Ibuprofen 400 MG .STK-MED ONE 07/22 0842 DC PO 07/22 0843 Ibuprofen 400 MG Q6P PRN 07/21 1200 AC 07/22 PO 1630 Ketorolac 15 MG Q6P PRN 07/21 1215 AC 07/23 Tromethamine IV 0131 Lorazepam 0.5 MG ONCE ONE 07/23 0645 DC 07/23 IV 07/23 0646 0647 Lorazepam 2 MG Q6 07/21 1230 AC 07/22 PO 2313 Lorazepam See Dose Q1P PRN 07/21 1200 AC 07/23 Insts (1) IV 0412 Magnesium Sulfate 1 GM Q2H 07/22 0845 DC 07/22 Dextrose/Water 100 ML IV 07/22 1244 1252 Metoprolol Succinate 50 MG DAILY 07/22 1000 AC 07/22 PO 1218 Multivitamins 1 TAB DAILY 07/22 1000 AC 07/22 PO 1217 Nicotine 21 MG DAILY 07/21 1208 AC 07/22 TOP 1004 Omeprazole 40 MG DAILY AC 07/21 1221 AC 07/23 PO 0629 Patient Medication 1 ED .STK-MED ONE 07/22 1350 DC Teaching ED 07/22 1351 Potassium Chloride 40 MEQ ONCE ONE 07/22 0945 DC 07/22 PO 07/22 0946 1042 Thiamine HCl 100 MG DAILY 07/22 1000 AC 07/22 PO 1217 Trazodone HCl 12.5 MG ONCE ONE 07/22 2145 DC 07/22 PO 07/22 2146 2313 Dose Instructions: (1)Lorazepam: See admin criteria Presentation/Appearance: Cooperative with evaluation. Street clothes, well groomed. Orientation: x4 Sensorium: Awake and alert Eye contact: Appropriate Affect: Somewhat blunted Mood: Euthymic Depression: Denies Anxiety: Denies Thought Content: - Denies SI/HI, AH/VH, PI. States and also believes they will not kill themselves. - Denies Hopeless/Helpless Thoughts Thought Process: Linear and goal directed Associations: Appropriate Speech: Normal tone and rate Judgment: Fair Insight: Fair Cognition: Memory: Grossly intact Attention/Concentration: Intact Capacity assessment Patient demonstrates the ability to communicate a choice of treatment versus no treatment, chooses no treatment. She demonstrates the ability to understand the relevant information, appreciate the situation and it's consequences including risks and benefits of discontinuing treatment specifically including seizure and , and reason about treatment options Assessment Patient demonstrates healthcare decision-making capacity as it relates to decision to discontinue alcohol detox treatment in hospital. Plan: 1. Patient has capacity, may leave AMA. 2. Pt encouraged to stay and finish ativan taper and discuss dispo with SW but declines. Thank you for including psychiatry in this case we're signing off A total of 30 minutes was spent with the patient with more than 50% of the time spent in counseling and/or coordination of care.
--- NOTE | 2016-07-23 08:28 | Event Note ---
Event Note Event Note: When I went to examine and follow-up with the patient this morning, she was all dressed up and had her bags ready. I asked her about her orientation and she was alert and oriented 3. She said that she wants to go home. She she said that on admission she thought that she was being admitted in a rehabilitation facility but then later on today lies that she is in hospital. She does not want to stay in a hospital and would like to go to an inpatient facility or outpatient. terrazzo worker was to immediately and she was provided with options. Her capacity to make decision was assessed. She had the capacity to make her own decisions. She was told that if she decides to leave the hospital that would be AGAINST MEDICAL ADVICE. She understood all the risk factors associated with leaving AGAINST MEDICAL ADVICE and decided to sign the paperwork. Supervising attending was also informed about the situation and on-call psychiatry also briefly spoke with the patient but she was determined to leave the hospital.
--- NOTE | 2016-07-23 09:06 | NUR ---
UPON GETTING REPORT FROM NIGHT RN, PT STATING SHE WOULD LIKE TO LEAVE AMA. RESIDENT RUTHIE VILLATORO AT BEDSIDE ASSESSING PT. GENERAL INTERNAL MEDICINE PHYSICIAN CALLED AND ASSESSED PT. BOTH PROVIDERS EDUCATED PT ON RISKS OF AMA; PT ABLE TO TEACH BACK SYMPTOMS AND NEGATIVE HEALTH OUTCOMES. AFTER PSYCH EVAL, RESIDENT RUTHIE SIGNED AMA PAPERS WITH PATIENT, THIS RN A WITNESS. PT HAD REMOVED IV HERSELF. SITE CHECKED PRIOR TO PT LEAVING, NO IV ACCESS. PT REQUESTING AN ATIVAN PRESCRIPTION WHICH THE RESIDENT ENCOURAGED THE PT TO SEE HER PCP AND FOLLOW UP WITH OUTPT CLINIC/PROGRAM. PT REFUSED TO SPEAK WITH CEO STATING SHE HAD PROGRAMS CLOSER TO HOME THAT SHE WOULD GO TO. PT DID NOT WAIT FOR DC PAPERS PRIOR TO LEAVING. WANTED A RIDE HOME, CALLED FRIEND TO PICK HER UP.
--- NOTE | 2016-07-23 13:42 | Patient Discharge Instructions ---
Discharge Instructions General Discharge Information You were seen/treated for: Alcohol withdrawal Special Instructions: Patient left against medical advice and did not complete her treatment during the hospital admission. Follow-up with primary care doctor as soon as possible Diet Continue normal diet: Yes Activity Full Activity/No Limits: Yes Acute Coronary Syndrome Inclusion Criteria At DC or during hospital stay patient has or had the following: ACS DIAGNOSIS No Discharge Core Measures Meds if any: Prescribed or Continued at Discharge Meds if any: NOT Prescribed or Continued at Discharge Congestive Heart Failure Inclusion Criteria At DC or during hospital stay patient has or had the following: CHF DIAGNOSIS No Discharge Core Measures Meds if any: Prescribed or Continued at Discharge Meds if any: NOT Prescribed or Continued at Discharge Cerebrovascular accident Inclusion Criteria At DC or during hospital stay patient has or had the following: CVA/TIA Diagnosis No Discharge Core Measures Meds if any: Prescribed or Continued at Discharge Meds if any: NOT Prescribed or Continued at Discharge Venous thromboembolism Inclusion Criteria VTE Diagnosis No VTE Type NONE VTE Confirmed by (Test) NONE Discharge Core Measures - Per Current guidelines, there needs to be overlap - treatment for the first 5 days of Warfarin therapy. - If discharged on Warfarin prior to 5 days of - overlap therapy, the patient will need to be - assessed for post discharge needs including - *Post discharge parental anticoagulation - *Warfarin and/or parental anticoagulation education - *Follow up date to check INR post discharge At least 5 days overlap therapy as Inpatient No Meds if any: Prescribed or Continued at Discharge Note: Overlap Therapy is Warfarin and Anticoagulant Meds if any: NOT Prescribed or Continued at Discharge
--- NOTE | 2016-07-23 14:18 | Discharge Summary ---
See Addendum Visit Information Visit Dates Admission Date: 07/21/16 Discharge Date: 07/23/16 Hospital Course Course Attending Physician: Dr Maria Teresa Anderson Primary Care Physician: RIP MERCEDES MD Consulting Request: Consulting Specialty: Psychiatry Hospital Course: 36-year-old female with past medical history significant for severe disorder, depression, anxiety, peripheral neuropathy, alcohol dependence, increased heart rate on metoprolol and history of multiple admissions at [facility] for alcohol dependence/withdrawal in the past admitted for voluntary alcohol detox. Blood alcohol level on admission 342. Alcohol dependence/withdrawal Patient received banana bag on admission and was later placed on cheduled by mouth Ativan and when necessary IV Ativan. Patient's CIWA score ranged between 0 -17. She was also given thiamine and folic acid. Hypomagnesemia Most likely secondary to chronic malnutrition as patient denied any recent history of diarrhea Magnesium was repleted during the hospital admission. History of seizure disorder We continued Tegretol during the hospital admission. Thrombocytopenia Most likely bone marrow suppression secondary to chronic alcohol intake leading to thrombocytopenia. We held subcutaneous heparin because of thrombocytopenia and patient was placed on Alps Left AGAINST MEDICAL ADVICE During the course of treatment, third day of admission patient decided to leave the hospital AGAINST MEDICAL ADVICE. Patient's capacity to make decisions was assessed. Patient was found capable to make her own decisions. Despite having psychiatric consultation patient left AGAINST MEDICAL ADVICE. Patient was not given any benzodiazepines on discharge. Social work consult Psych consult Patient was full code Patient was on regular diet Patient was on Lovenox for DVT prophylaxis Patient was on pain management Allergies: Coded Allergies: Sulfa (Sulfonamide Antibiotics) (UNKNOWN 05/20/16) Disposition Summary Disposition Principal Diagnosis: Alcohol withdrawal Additional Diagnosis: Seizure disorder Depression Anxiety History of tachycardia Discharge Disposition: left against medical adv Discharge Instructions General Discharge Information Code Status: Full Code Patient's Diet: Regular diet Patient's Activity: As tolerated Follow-Up Instructions/Appts: Follow-up with primary care as soon as possible Follow-up with psychiatry as soon as possible Medications at Discharge Discharge Medications: Continue taking these medications: Citalopram Hydrobromide (Citalopram HBr) 20 MG TABLET 1 Tablet ORAL DAILY Comments: Last Taken: 05/29/16 Time: 10AM Pantoprazole Sodium (Protonix) 40 MG TABLET. 1 Tablet ORAL DAILY Comments: NOT GIVEN IN HOSPITAL Gabapentin (Gabapentin) 300 MG CAPSULE 1 Capsule ORAL THREE TIMES DAILY Qty = 90 Comments: Last Taken:05/29/16 Time: 10AM Carbamazepine (Tegretol XR) 200 MG TAB.ER.12H 1 Tablet ORAL TWICE DAILY Qty = 60 Comments: Last Taken: 05/29/16 Time: 10AM Metoprolol Succinate (Metoprolol Succinate) 50 MG TAB.ER.24H 1 Tablet ORAL DAILY Qty = 30 Comments: Last Taken: 05/29/16 Time: 10AM Ferrous Sulfate (Ferrous Sulfate) 325 MG (65 MG IRON) TABLET 1 Tablet ORAL DAILY Comments: Last Taken: 05/29/16 Time: 10AM Folic Acid (Folic Acid) 0.8 MG TABLET 1 Tablet ORAL DAILY Comments: Last Taken: 05/29/16 Time: 10AM Vitamin C/Biotin (Pxrc-Fpft-Sabcm Gummies) 50 MG-1,250 MCG TAB.CHEW 2 Tablet ORAL DAILY Comments: NOT GIVEN IN HOSPITAL Terbinafine HCl (Terbinafine HCl) 250 MG TABLET 1 Tablet ORAL DAILY Qty = 30 Copies To: CATERINA DOUGHERTY,MARIA TERESA
== END 2016-07-23 08:23 | disposition left against medical advice (07) | DRG 770 ==
LOC: ERH 17:11 → 2NA 07-21 10:36 → ERHI 07-21 10:36 → ENRESERV 07-21 15:01 → ENTRNSPT 07-21 15:37 → 2NA 07-21 15:53 → CMPTRNSPT 07-21 21:03 → 2NA 07-23 08:23
PROVIDERS: Emergency Medicine; Internal Medicine Hematology & Oncology; ADMIT Internal Medicine
DX: F10.239 Alcohol dependence with withdrawal, unspecified (principal); E46 Unspecified protein-calorie malnutrition; D69.6 Thrombocytopenia, unspecified; R56.9 Unspecified convulsions; G62.9 Polyneuropathy, unspecified; E83.42 Hypomagnesemia; F10.229 Alcohol dependence with intoxication, unspecified; Y90.8 Blood alcohol level of 240 mg/100 ml or more; Z68.27 Body mass index [BMI] 27.0-27.9, adult; J45.909 Unspecified asthma, uncomplicated; F41.8 Other specified anxiety disorders; I71.4 Abdominal aortic aneurysm, without rupture; E03.9 Hypothyroidism, unspecified
CPT/HCPCS: 2NAP; 73562-RT; 80307; 81025; 82436; 93005; 93010; 96374; G0480; J1650; J1885; J3490; J7060

== ENCOUNTER 2016-08-08 11:50 | Emergency (ER) | payer OTHER ==
[~2016-08-08] VITALS: Ht 162.6 cm; Wt 72.6 kg
--- NOTE | 2016-08-08 12:23 | ED DYSPNEA/ASTHMA COMPLAINT ---
History of Present Illness General Chief Complaint: General Adult Stated Complaint: BIBA FOR SOB, CP Source: patient, old records, EMS Exam Limitations: no limitations Vital Signs & Intake/Output Vital Signs & Intake/Output Vital Signs Date Time Temp Pulse Resp B/P B/P Pulse O2 O2 Flow FiO2 Mean Ox Delivery Rate 08/08 1600 94 Nasal 2.0L Cannula 08/08 1557 74 18 101/55 96 Nasal 2.0L Cannula 08/08 1356 96.0 72 20 100/62 95 Room Air 08/08 1225 94 Room Air 08/08 1222 96 08/08 1152 97.0 79 18 103/70 92 Room Air Allergies Coded Allergies: Sulfa (Sulfonamide Antibiotics) (UNKNOWN 05/20/16) Reconcile Medications Albuterol Sulfate (Proair Hfa) 90 MCG HFA.AER.AD 2 PUF INH Q4-6 PRN PRN wheezing/cough Amoxicillin/Potassium Clav (Augmentin 875-125 Tablet) 875 MG-125 MG TABLET 1 TAB PO BID pneumonia Benzonatate 200 MG CAPSULE 1 CAP PO TIDPRN PRN cough Carbamazepine (Tegretol XR) 200 MG TAB.ER.12H 1 TAB PO BID UNKNOWN (Reported) Citalopram Hydrobromide (Citalopram HBr) 20 MG TABLET 1 TAB PO DAILY MENTAL HEALTH (Reported) Ferrous Sulfate 325 MG (65 MG IRON) TABLET 1 TAB PO DAILY SUPPLEMENT ( Reported) Folic Acid 0.8 MG TABLET 1 TAB PO DAILY SUPPLEMENT (Reported) Gabapentin 300 MG CAPSULE 1 CAP PO TID UNKNOWN (Reported) Methylprednisolone. (Medrol) 4 MG TAB.DS.PK 1 DP PO AD wheezing 6 on day 1 then reduce by one tablet daily until gone Metoprolol Succinate 50 MG TAB.ER.24H 1 TAB PO DAILY HEART (Reported) Pantoprazole Sodium (Protonix) 40 MG TABLET.DR 1 TAB PO DAILY GI (Reported) Terbinafine HCl 250 MG TABLET 1 TAB PO DAILY LEFT BIG TOE (Reported) Vitamin C/Biotin (Fssy-Usdg-Ijfxe Gummies) 50 MG-1,250 MCG TAB.CHEW 2 TAB PO DAILY SUPPLEMENT (Reported) Triage Note: BIBA FROM HOME, PT REPORTS HAVING COUGH/SOB WITH YELLOW SPUTUM X 1 WEEK. PER EMS SPO2 92% RA AND WAS SMOKING UPON ARRIVAL. PT 92-94%RA ON MONITOR, NSR. Triage Nurses Notes Reviewed? yes Onset: Abrupt Duration: day(s): (6-7), constant, continues in ED, getting worse Timing: single episode today Severity: mild, moderate Activities at Onset: none Prior Episodes/Possible Cause: frequent episodes, smoke exposure Associated Symptoms: anxiety, cough, chest pain, wheezing LMP (ages 10-50): unknown : No Patient currently breastfeeds: No HPI: 36-year-old female with a history of alcohol/drug abuse, COPD/asthma biba complaining of cough, shortness of breath and chest pain over the past week. Patient reports that cough is productive of yellow sputum and is worse at night causing trouble sleeping. She reports pain in the center of her chest that is worse with coughing and described as sharp. She rates the pain as a 7 out of 10 and does not radiate. She has not been taking any medications for the symptoms. Patient is a current every day smoker and drinks a large amount of alcohol. She reports her last drink was today and she had 2 25 ounce beers that her a percent alcohol by volume. (OBIE KNUTSON PA-C) Past History Travel History Traveled to [place] past 21 day No Medical History Any Pertinent Medical History? see below for history Neurological: peripheral neuropathy, seizure ([place]/withdrawal/febrile) EENT: NONE Cardiovascular: aortic aneurysm Respiratory: asthma Gastrointestinal: alcoholic hepatitis Hepatic: hepatic encephalopathy (questionable) Renal: NONE Musculoskeletal: NONE Psychiatric: alcohol dependence, anxiety, IV drug abuse, ANXIETY/DEPRESSION substance abuse Endocrine: NONE, hypothyroidism (borderline) Blood Disorders: thrombocytopenia Cancer(s): NONE DAYCARE ASSISTANT/Reproductive: NONE History of MRSA: No History of VRE: Yes History of CDIFF: No Surgical History Surgical History: appendectomy Psychosocial History Who do you live with Patient/Self Services at Home None What is your primary language Citizen [place] Family History Family History, If Any: No Known Family History. Hx Contributory? No (OBIE KNUTSON PA-C) Review of Systems Review of Systems Constitutional: Reports: no symptoms. EENTM: Reports: see HPI, nasal congestion. Respiratory: Reports: see HPI, cough, short of breath, wheezing. Cardiovascular: Reports: see HPI, chest pain. GI: Reports: no symptoms. Genitourinary: Reports: no symptoms. Musculoskeletal: Reports: no symptoms. Skin: Reports: no symptoms. Neurological/Psychological: Reports: no symptoms. Hematologic/Endocrine: Reports: no symptoms. Immunologic/Allergic: Reports: no symptoms. All Other Systems: Reviewed and Negative (EAMON LEYVA,OBIE) Physical Exam Physical Exam General Appearance: well developed/nourished, alert, awake, anxious, mild distress Head: atraumatic, normal appearance Eyes: Bilateral: normal appearance, PERRL, EOMI. Ears, Nose, Throat: normal pharynx, normal ENT inspection, nasal congestion ( clear) Neck: normal inspection, supple, full range of motion Respiratory: no respiratory distress, rhonchi, wheezing, diffuse wheezing and rhonchi are all stated bilaterally. After DuoNeb mild wheezing is present but significantly improved. No signs of respiratory distress no crackles auscultated. no accessory muscles used., chest wall is tender to palpation over the sternum Cardiovascular: regular rate/rhythm, normal peripheral pulses Peripheral Pulses: 2+ tibialis posterior (R), 2+ tibialis posterior (L), 2+ dorsalis pedis (R), 2+ dorsalis pedis (L) Gastrointestinal: normal bowel sounds, soft, non-tender, no organomegaly Extremities: normal inspection, normal capillary refill, normal range of motion, no edema Neurologic/Psych: no motor/sensory deficits, awake, alert, oriented x 3, normal gait, normal mood/affect Skin: intact, normal color, warm/dry Lymphatic: no anterior cervical antwan Core Measures ACS in differential dx? Yes Severe Sepsis Present: No Septic Shock Present: No (EAMON LEYVA,OBIE) Progress Differential Diagnosis: asthma, AMI, bronchitis, costochondritis, CHF, COPD, musculoskeletal pain, pericarditis, pulmonary embolism, pneumonia, pneumothorax Plan of Care: Orders Procedure Date/time Status ETHANOL 08/08 1300 Complete BLOOD CULTURE 08/08 1223 Active Add-on Test (ER Only) 08/08 1155 Active Telemetry/Tank Truck Driver 08/08 1154 Active TROPONIN LEVEL 08/08 1154 Complete MAGNESIUM 08/08 1154 Complete D-DIMER 08/08 1154 Complete COMPREHENSIVE METABOLIC PANEL 08/08 1154 Complete CBC WITHOUT DIFFERENTIAL 08/08 1154 Complete B-TYPE NATRIURETIC PEP (BNP) 08/08 1154 Complete EKG 08/08 1151 Active Laboratory Tests 08/08/16 1300: Anion Gap 17 H, Estimated GFR > 60, BUN/Creatinine Ratio 4.0 L, Glucose 95, Calcium 9.1, Magnesium 1.8, Total Bilirubin 0.4, AST 87 H, ALT 62 H, Alkaline Phosphatase 152 H, Troponin I < 0.01, Wwp-G-Wqsncmvblbu Pept 89.0, Total Protein 8.6 H, Albumin 4.9, Globulin 3.7, Albumin/Globulin Ratio 1.3, Serum Alcohol 401.0 08/08/16 1241: Serum Alcohol Cancelled 08/08/16 1241: Methadone Screen Cancelled, Barbiturate Screen Cancelled, Ur Phencyclidine Scrn Cancelled, Amphetamines Screen Cancelled, U Benzodiazepines Scrn Cancelled, Urine Cocaine Screen Cancelled, Urine Cannabis Screen Cancelled 08/08/16 1205: D-Dimer High Sensitivty < 200, CBC w Diff NO MAN DIFF REQ, RBC 4.68, MCV 99.2 H , MCH 33.1 H, RDW 13.5, MPV 9.9, Gran % 52.8, Lymphocytes % 40.4, Monocytes % 5.1, Eosinophils % 0.6, Basophils % 1.1, Absolute Granulocytes 5.2, Absolute Lymphocytes 3.9 H, Absolute Monocytes 0.5, Absolute Eosinophils 0.1, Absolute Basophils 0.1, PUBS MCHC 33.3 08/08/16 1154: Urine Color Cancelled, Urine Clarity Cancelled, Urine pH Cancelled, Ur Specific [place] Cancelled, Urine Protein Cancelled, Urine Ketones Cancelled, Urine Nitrite Cancelled, Urine Bilirubin Cancelled, Urine Urobilinogen Cancelled, Ur Leukocyte Esterase Cancelled, Ur Microscopic Cancelled, Urine Hemoglobin Cancelled, Urine Glucose Cancelled Microbiology 08/08 1300 BLOOD: Blood Culture - CAN Cancelled: Quantity not sufficient for Aerobic blood culture bottle. 08/08 1210 BLOOD: Blood Culture - RECD 08/08 1155 BLOOD: Blood Culture - CAN Cancelled: NOT REC'D IN LAB - PATIENT DEPARTED ER 08/08 1154 BLOOD: Blood Culture - CAN Cancelled: Cancelled via OE: Error Patient reports improved symptoms after DuoNeb treatment. Only mild wheezing is present. No crackles no respiratory distress. Patient is afebrile. Chest pain is reproducible and may likely be caused by coughing. EKG does not show any signs of ischemia troponin is negative D dimer is negative. Patient was given 125 of Solu-Medrol. Chest x-ray is improved from previous but there is question of possible pneumonia. Patient will be treated with Augmentin, Medrol Dosepak, Tessalon Perles and albuterol inhaler. She'll follow-up with her primary care doctor. Also advised patient that she needs to have her alcohol abuse evaluated. No signs of alcohol withdrawal. No history of DTs. Reviewed All results of today's visit with patient. Patient is nontoxic-appearing and afebrile at discharge. She agrees with plan. Patient requests an additional DuoNeb before leaving. She reports feeling better after second DuoNeb. (EAMON LEYVA,OBIE) Initial ED EKG: sinus rhythm, low voltage throughout Comments: PATIENT: DELORIS WINTER PRESENT AGE: 36 PATIENT ACCOUNT NO: [id number] : 81 LOCATION: [facility] ORDERING PHYSICIAN: OBIE KNUTSON PA-C SERVICE DATE: 08/08/16-2978 EXAM TYPE: RAD - XRY-PORTABLE CHEST XRAY EXAMINATION: XR PORTABLE CHEST CLINICAL INFORMATION: Chest pain. Cough. Shortness of breath. COMPARISON: Chest done on 05/23/2016. TECHNIQUE: Portable frontal view of the chest was obtained. FINDINGS: Marked improved aeration is noted since 05/23/2016. Nonspecific few residual airspace disease is noted at retrocardiac region of the left lower lobe of the lung, may represent hypoventilatory, atelectatic changes versus infiltrate. The remainder of the lung dow otherwise appear clear. There is no pleural effusion present. The cardiomediastinal silhouette is within normal limits. The visualized upper abdomen is unremarkable. IMPRESSION: Marked interval improvement since 05/23/2016. Few nonspecific airspace disease is noted in the retrocardiac region, may represent infiltrate, atelectasis or combination thereof. DICTATED BY: CECE GUSTAFSON MD DATE/TIME DICTATED:08/08/161251 BOBBIN PAINTER:CESAR DATE/TIME TRANSCRIBED:08/08/161251 CONFIDENTIAL, DO NOT COPY WITHOUT APPROPRIATE AUTHORIZATION. <Electronically signed in Other Vendor System> SIGNED BY: CECE GUSTAFSON MD 08/08/16 5297 (OBIE KNUTSON PA-C) Departure Departure Disposition: HOME OR SELF CARE Condition: Stable Clinical Impression Primary Impression: Acute bronchitis Qualifiers: Bronchitis organism: unspecified organism Qualified Code: J20.9 - Acute bronchitis, unspecified Referrals: MAGO DOUGHERTY,RIP Beck (PCP/Family) Additional Instructions: Rest and drink plenty of fluids. Quit smoking. Take Augmentin and Medrol Dosepak as directed for the full course. Use Provera inhaler 2 puffs every 4-6 hours as needed for coughing or wheezing. Benzonatate as needed for cough. Make a follow-up appointment with her primary care doctor this week to follow up on all results of today's visit. He should also consider treatment for alcohol abuse. On its her symptoms. If he has fevers, chest pain, shortness of breath, coughing up blood, high fevers, or any other concerns return to the emergency department. Please go over all results of today's visit with your primary care doctor. Contact your primary care doctor to let them know you were here in the emergency room. There may be nonspecific findings which may not be related to your visit today here in the emergency room but may require further evaluation and chronic monitoring by your primary care doctor. If you had a laceration today the chance of foreign body always remains. You should follow-up with your primary care doctor for recheck in 3-5 days for a wound check. If you had an x-ray done there is a chance that a fracture could have been missed on initial read and you should follow-up with your primary care doctor for repeat x-rays if symptoms persist. If your blood pressure was elevated here in the emergency room please have rechecked by her primary care doctor within the next 48 hours by your primary care doctor. If you were prescribed a narcotic here in the emergency room or any type of controlled substances you're not allowed to drive while taking this medication or operate any type of heavy machinery. Narcotics can make you feel lightheaded dizziness nausea and can cause constipation. You may need to picking belt operator a stool softener. Thank you for choosing [facility] emergency room. Please return to the emergency room immediately if you have any other concerns worsening of symptoms. Departure Forms: Customer Survey General Discharge Information Prescriptions: Current Visit Scripts Amoxicillin/Potassium Clav (Augmentin 875-125 Tablet) 1 TAB PO BID #20 TAB Methylprednisolone. (Medrol) 1 DP PO AD #1 DP 6 on day 1 then reduce by one tablet daily until gone Albuterol Sulfate (Proair Hfa) 2 PUF INH Q4-6 PRN PRN wheezing/cough #1 INHAL Benzonatate 1 CAP PO TIDPRN PRN cough #21 CAP (OBIE KNUTSON PA-C) PA/MANAGER LIFE Co-Sign Statement Statement: ED Attending supervision documentation- [] I saw and evaluated the patient. I have also reviewed all the pertinent lab results and diagnostic results. I agree with the findings and the plan of care as documented in the PA's/MANAGER LIFE's documentation. [X] I have reviewed the ED Record and agree with the PA's/MANAGER LIFE's documentation. [] Additions or exceptions (if any) to the PAs/MANAGER LIFE's note and plan are summarized below: [] (KELSEA DOUGHERTY,JENNIFER) Critical Care Note Critical Care Note Critical Care Time: non-applicable (OBIE KNUTSON PA-C)
[2016-08-08 12:28] LABS: ABSOLUTE BASOPHIL COUNT 0.1 /CUMM (0.0-0.2); ABSOLUTE EOSINOPHIL COUNT 0.1 /CUMM (0.0-0.7); ABSOLUTE GRANULOCYTE CT 5.2 /CUMM (1.4-6.5); ABSOLUTE LYMPH COUNT 3.9 /CUMM (1.2-3.4); ABSOLUTE MONOCYTE COUNT 0.5 /CUMM (0.10-0.60); BASOPHIL % 1.1 % (0.0-2.0); EOSINOPHIL % 0.6 % (0-5); GRANULOCYTE % 52.8 % (42.2-75.2); HEMATOCRIT 46.4 % (37-47); MEAN CORPUSCULAR HGB 33.1 PG (27.0-31.0); MEAN CORPUSCULAR HGB CONC 33.3 G/DL (33.0-37.0); MEAN CORPUSCULAR VOLUME 99.2 FL (81.0-99.0); MEAN PLATELET VOLUME 9.9 FL (7.4-10.4); PLATELET COUNT 166 /CUMM (130-400); RBC DISTRIBUTION WIDTH 13.5 % (11.5-14.5); RED BLOOD CELL CT 4.68 /CUMM (4.20-5.40); WHITE BLOOD CELL COUNT 9.8 /CUMM (4.8-10.8)
--- NOTE | 2016-08-08 13:08 | RADIOLOGY REPORT ---
EXAMINATION: XR PORTABLE CHEST CLINICAL INFORMATION: Chest pain. Cough. Shortness of breath. COMPARISON: Chest done on 05/23/2016. TECHNIQUE: Portable frontal view of the chest was obtained. FINDINGS: Marked improved aeration is noted since 05/23/2016. Nonspecific few residual airspace disease is noted at retrocardiac region of the left lower lobe of the lung, may represent hypoventilatory, atelectatic changes versus infiltrate. The remainder of the lung dow otherwise appear clear. There is no pleural effusion present. The cardiomediastinal silhouette is within normal limits. The visualized upper abdomen is unremarkable. IMPRESSION: Marked interval improvement since 05/23/2016. Few nonspecific airspace disease is noted in the retrocardiac region, may represent infiltrate, atelectasis or combination thereof.
[2016-08-08] MEDS ORDERED: MEDROL4 M2 PO (15:49)
[2016-08-08] MEDS ORDERED: PROAIR HFA8.5 GM INH (15:49)
[2016-08-08] MEDS ORDERED: BENZONATATE200 M1 PO (15:49)
[2016-08-08] MEDS ORDERED: AUGMENTIN 875-1 EACH PO (15:49)
[2016-08-08 15:57] VITALS: BP 101/55
== END 2016-08-08 16:37 ==
LOC: ERH 11:50
PROVIDERS: Physician Assistant Medical
DX: J20.9 Acute bronchitis, unspecified (principal); R07.9 Chest pain, unspecified; F17.210 Nicotine dependence, cigarettes, uncomplicated
CPT/HCPCS: 1263; 80307; 87040; 93005; 93010; 96374; G0480; J2930

== ENCOUNTER 2016-08-31 00:50 | Inpatient (IN) | payer OTHER ==
[2016-08-31] VITALS (7 sets, daily range): BP systolic 90–114; BP diastolic 56–70
[~2016-08-31] VITALS: Ht 162.6 cm; Wt 78.0 kg
[~2016-08-31 00:50] MED LIST changes: +AUGMENTIN 875-1 EACH PO; +BENZONATATE200 M1 PO; +MEDROL4 M2 PO; +PROAIR HFA8.5 GM INH
[2016-08-31 01:58] LABS: ABSOLUTE BASOPHIL COUNT 0 /CUMM (0.0-0.2); ABSOLUTE EOSINOPHIL COUNT 0.1 /CUMM (0.0-0.7); ABSOLUTE GRANULOCYTE CT 3.1 /CUMM (1.4-6.5); ABSOLUTE MONOCYTE COUNT 0.5 /CUMM (0.10-0.60); BASOPHIL % 0.5 % (0.0-2.0); GRANULOCYTE % 40.2 % (42.2-75.2); HEMATOCRIT 43.3 % (37-47); MEAN CORPUSCULAR HGB 33.4 PG (27.0-31.0); MEAN CORPUSCULAR HGB CONC 33.8 G/DL (33.0-37.0); MEAN CORPUSCULAR VOLUME 98.9 FL (81.0-99.0); MEAN PLATELET VOLUME 8.6 FL (7.4-10.4); PLATELET COUNT 141 /CUMM (130-400); RBC DISTRIBUTION WIDTH 14.7 % (11.5-14.5); RED BLOOD CELL CT 4.38 /CUMM (4.20-5.40); WHITE BLOOD CELL COUNT 7.8 /CUMM (4.8-10.8)
--- NOTE | 2016-08-31 02:27 | ED AMS/SEIZURE/WEAK/DIZZY ---
History of Present Illness General Chief Complaint: ETOH/Drug Related Complaint Stated Complaint: ETOH Source: patient Exam Limitations: no limitations Vital Signs & Intake/Output Vital Signs & Intake/Output Vital Signs Date Time Temp Pulse Resp B/P B/P Pulse O2 O2 Flow FiO2 Mean Ox Delivery Rate 08/31 1345 100.3 95 20 107/56 08/31 1345 100.3 95 20 107/56 95 Room Air 08/31 1145 99.2 99 20 100/65 08/31 1145 99.2 99 20 100/65 94 Room Air 08/31 0945 98.0 95 20 114/70 08/31 0945 98.0 95 20 114/70 95 Room Air 08/31 0745 98.6 85 20 90/60 08/31 0745 98.6 85 20 90/60 96 Room Air 08/31 0641 83 16 87/53 93 Room Air 08/31 0503 97.3 79 18 109/56 93 Room Air 08/31 0500 97.3 79 20 109/56 08/31 0131 95.8 81 18 111/79 93 Room Air Allergies Coded Allergies: Sulfa (Sulfonamide Antibiotics) (UNKNOWN 05/20/16) Reconcile Medications Carbamazepine (Tegretol XR) 200 MG TAB.ER.12H 1 TAB PO BID UNKNOWN (Reported) Ferrous Sulfate 325 MG (65 MG IRON) TABLET 1 TAB PO DAILY SUPPLEMENT ( Reported) Folic Acid 0.8 MG TABLET 1 TAB PO DAILY SUPPLEMENT (Reported) Gabapentin 300 MG CAPSULE 1 CAP PO TID UNKNOWN (Reported) Metoprolol Succinate 50 MG TAB.ER.24H 1 TAB PO DAILY HEART (Reported) Pantoprazole Sodium (Protonix) 40 MG TABLET.DR 1 TAB PO DAILY GI (Reported) Terbinafine HCl 250 MG TABLET 1 TAB PO DAILY LEFT BIG TOE (Reported) Vitamin C/Biotin (Mvae-Bawn-Dbpzo Gummies) 50 MG-1,250 MCG TAB.CHEW 2 TAB PO DAILY SUPPLEMENT (Reported) Triage Note: TRIAGE: PATIENT TO ER FROM HOME REQUESTING ETOH DETOX, WAS BEEN ADMITTED AT [facility] LAST MONTH FOR SAME. PATIENT COOPERATIVE, ADMITS TO +ETOH INTOXICATION AT THIS TIME. REPORTS +HX WITHDRAWL SEIZURES. PATIENT NOT ANSWERING MOST QUESTIONS BY RN, FRIEND PROVIDING ANSWERS FOR PATIENT WHEN SHE REFUSES TO ANSWER. PATIENT FRIEND REPORTS 2 25OZ BEERS AND SHOTS, PATIENT REPORTING "AND ADD 2 MORE 25OZ BEERS BEFORE THAT." PATIENT DENIES DRUG USE; THOUGH REPORTING INTERMITTENT MARIJUANA USE. TAKEN TO ROOM 12 BY WHEELCHAIR. SECURITY PAGED FOR WANDING. Triage Nurses Notes Reviewed? yes Onset: Gradual Duration: week(s): Timing: recent history Injury Environment: home Modifying Factors: Improves With: rest. Associated Symptoms: "I need to stop" : No Patient currently breastfeeds: No HPI: 36-year-old woman in prior good health seeks alcohol detoxification. She states that she is tried detox before, "and it was really helpful." She presents this evening for detox. She states that she has had a seizure in the past and has been admitted medically previously. She states that she drinks four 25 ounce bottles of beer as well as hard liquor. She sees detox. She denies SI or HI or hallucinations. (AGNES DOUGHERTY,JOCE Eckert) Past History Travel History Traveled to [place] past 21 day No Medical History Any Pertinent Medical History? 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 Hx Contributory? No (JOCE JUSTIN MD) Review of Systems Review of Systems Constitutional: Reports: no symptoms. EENTM: Reports: no symptoms. Respiratory: Reports: no symptoms. Cardiovascular: Reports: no symptoms. GI: Reports: no symptoms. Genitourinary: Reports: no symptoms. Musculoskeletal: Reports: no symptoms. Skin: Reports: no symptoms. Neurological/Psychological: Reports: no symptoms. Hematologic/Endocrine: Reports: no symptoms. Immunologic/Allergic: Reports: no symptoms. All Other Systems: Reviewed and Negative (JOCE JUSTIN MD) Physical Exam Physical Exam General Appearance: well developed/nourished, no apparent distress Head: atraumatic, normal appearance Eyes: Bilateral: normal appearance, PERRL, EOMI. Ears, Nose, Throat: normal pharynx, normal ENT inspection Neck: normal inspection, full range of motion, JVD, limited range of motion Respiratory: normal breath sounds, chest non-tender, no respiratory distress, quiet respiration, lungs clear Cardiovascular: regular rate/rhythm, edema, gallop, JVD, murmur Gastrointestinal: normal bowel sounds, soft, non-tender Back: normal inspection, normal range of motion Extremities: normal range of motion Neurologic/Psych: no motor/sensory deficits, awake, alert, oriented x 3 Skin: intact, normal color, warm/dry Core Measures ACS in differential dx? No CVA/TIA Diagnosis: No Severe Sepsis Present: No Septic Shock Present: No (AGNES DOUGHERTY,JOCE Eckert) Progress Differential Diagnosis: alcohol intoxication, electrolyte imbalance, depression, polysubstance abuse Plan of Care: Orders Procedure Date/time Status Admit to inpatient 08/31 1518 Active Pathway - chart 08/31 0234 Active CIWA 08/31 0234 Active CASE MANAGEMENT CONSULT 08/31 023 Active URINE 08/31 013 Complete URINE DRUG SCREEN FOR ER ONLY 08/31 013 Complete ACETOMINOPHEN 08/31 132 Complete SALICYLATE 08/31 132 Complete LIPASE 08/31 132 Complete ETHANOL 08/31 132 Complete COMPREHENSIVE METABOLIC PANEL 08/31 132 Complete CBC WITHOUT DIFFERENTIAL 08/31 132 Complete AMYLASE 08/31 132 Complete Current Medications Sig/Carola Start time Last Medication Dose Stop Time Status Admin Lorazepam 2 MG Q2P PRN 08/31 0245 AC 08/31 (Ativan) 0945 Lorazepam 1 MG Q2P PRN 08/31 0245 AC (Ativan) Laboratory Tests 08/31/16 0751: Urine Opiates Screen < 100.00, Methadone Screen < 40, Barbiturate Screen < 60, Ur Phencyclidine Scrn < 6.00, Amphetamines Screen < 100, U Benzodiazepines Scrn < 85, Urine Cocaine Screen < 50, Urine Cannabis Screen 30.70, Urine Test NEGATIVE 08/31/16 0150: Anion Gap 17 H, Estimated GFR > 60, BUN/Creatinine Ratio 4.0 L, Glucose 92, Calcium 9.2, Total Bilirubin 0.5, AST 64 H, ALT 41, Alkaline Phosphatase 122, Total Protein 7.9, Albumin 4.4, Globulin 3.5, Albumin/Globulin Ratio 1.3, Amylase 55, Lipase 189, CBC w Diff MAN DIFF ORDERED, RBC 4.38, MCV 98.9, MCH 33.4 H, RDW 14.7 H, MPV 8.6, Gran % 40.2 L, Lymphocytes % 51.3 H, Monocytes % 7.0, Eosinophils % 1.0, Basophils % 0.5, Absolute Granulocytes 3.1, Segmented Neutrophils 37 L, Band Neutrophils 4, Absolute Lymphocytes 4.0 H, Lymphocytes 52 H, Monocytes 5, Absolute Monocytes 0.5, Eosinophils 2, Absolute Eosinophils 0.1, Absolute Basophils 0, Platelet Estimate ADEQUATE, Normocytic RBCs VERIFIED, Normochromic RBCs VERIFIED, PUBS MCHC 33.8, Salicylates < 1.0, Acetaminophen < 10.0 L, Serum Alcohol 433.0 Initial ED EKG: none Hand-Off Endorsed To: FELI DOUGHERTY,ROSALIA Noriega (AGNES DOUGHERTY,JOCE Eckert) Comments: 08/31/2016 10:01:09 AM patient signed out to me by Dr. 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 Julianne is now manifesting signs of active withdrawal with a CIWA score of 17. She is requesting nausea medicine, this has been ordered. Plan inpatient alcohol detox. (FELI DOUGHERTY,ROSALIA Noriega) Departure Departure Disposition: STILL A PATIENT Condition: Stable Clinical Impression Primary Impression: Alcoholism Referrals: MAGO DOUGHERTY,RIP Beck (PCP/Family) Departure Forms: Customer Survey General Discharge Information (AGNES DOUGHERTY,JOCE Eckert) Admission Note Spoke With: GENESIS BRITTON MD Documentation of Exam: Documentation of any treatments & extenuating circumstances including Concerns Regarding Discharge (functional status, medication knowledge or non-compliance, living conditions, etc.) that warrant an admission rather than observation: Continued alcohol consumption places the patient at high risk of pancreatitis, pancreatic failure, liver failure/cirrhosis. In order to avoid this the patient will need to cease drinking alcohol. Patient's alcohol use places pt at high risk of seizures and delirium tremens during cessation. Patient will be at high risk of withdrawal seizures and delirium tremens (both of which can be fatal) for up to 5 days after stopping alcohol. pt will require IV Ativan to prevent these complications. pt is therefore a very poor candidate for outpatient treatment given the above concerns. Pt will require a multiple day hospitalization. (FELI DOUGHERTY,ROSALIA Noriega) Critical Care Note Critical Care Note Critical Care Time: 30-74 min (FELI DOUGHERTY,ROSALIA Noriega)
--- NOTE | 2016-08-31 16:28 | History & Physical ---
CHARLEYARIE 08/31/16 1612: General Information and HPI MD Statement: I have seen and personally examined DELORIS WINTER and documented this H&P. The patient is a 36 year old F who presented with a patient stated chief complaint alcohol detox and withdrawal Source of Information: patient, EMS Exam Limitations: clinical condition History of Present Illness: Patient is a 36-year-old woman with a past medical history significant for alcohol abuse, , history of anxiety and depression, peripheral neuropathy, history of seizure disorder presented to the ED requesting alcohol detox. Patient was recently admitted to [facility] in July 2016 for alcohol detox and left AGAINST MEDICAL ADVICE on third day of admission. She has been admitted multiple times at [facility] for alcohol dependence and withdrawal for volunteer detox. She mentioned that she drinks four 25 ounce bottles of beer as well as hard liquor, last drink was just before coming to the hospital. Since morning yesterday she was nauseous, vomited couple of times at home associated with abdominal discomfort and diarrhea and also she was getting more anxious and tremulous, and to relieve her symptoms she kept on drinking, until she realized to stop and go to the ER for detox. Patient denied any suicidal or homicidal ideations. Denied any hallucinations or delusions. Denied any chest discomfort or trouble breathing. She mentioned that she was recently diagnosed with bronchitis and Meera and was prescribed Augmentin for 10 days, she still reports cough with phlegm associated with low- grade fever and chills. Other review of system was negative. Allergies/Medications Allergies: Coded Allergies: Sulfa (Sulfonamide Antibiotics) (UNKNOWN 05/20/16) Home Med list Carbamazepine (Tegretol XR) 200 MG TAB.ER.12H 1 TAB PO BID UNKNOWN (Reported) Ferrous Sulfate 325 MG (65 MG IRON) TABLET 1 TAB PO DAILY SUPPLEMENT ( Reported) Folic Acid 0.8 MG TABLET 1 TAB PO DAILY SUPPLEMENT (Reported) Gabapentin 300 MG CAPSULE 1 CAP PO TID UNKNOWN (Reported) Metoprolol Succinate 50 MG TAB.ER.24H 1 TAB PO DAILY HEART (Reported) Pantoprazole Sodium (Protonix) 40 MG TABLET.DR 1 TAB PO DAILY GI (Reported) Terbinafine HCl 250 MG TABLET 1 TAB PO DAILY LEFT BIG TOE (Reported) Vitamin C/Biotin (Zxqi-Vagl-Jgbid Gummies) 50 MG-1,250 MCG TAB.CHEW 2 TAB PO DAILY SUPPLEMENT (Reported) Past History Travel History Traveled to [place] past 21 day No Medical History Neurological: peripheral neuropathy, seizure (EtOH/withdrawal/febrile) EENT: NONE Cardiovascular: aortic aneurysm Respiratory: asthma Gastrointestinal: alcoholic hepatitis Hepatic: hepatic encephalopathy (questionable) Renal: NONE Musculoskeletal: NONE Psychiatric: alcohol dependence, anxiety, IV drug abuse, ANXIETY/DEPRESSION substance abuse Endocrine: hypothyroidism Blood Disorders: thrombocytopenia Cancer(s): NONE 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 Psychosocial History Services at Home: None Primary Language: Sami ETOH Use: alcoholic Living Will? no Power of Hse Coordinator/HCP? no Functional Ability ADLs Independent: dressing, eating, toileting, bathing. Ambulation: independent IADLs Independent: shopping, housework, finances, food prep, telephone, transportation , medication admin. Review of Systems Review of Systems Constitutional: Reports: fever. Denies: chills, diaphoresis, malaise, weakness. EENTM: Denies: double vision. Cardiovascular: Denies: chest pain, edema, orthopena. Respiratory: Reports: cough. Denies: hemoptysis, orthopnea. GI: Reports: diarrhea, nausea, vomiting. Genitourinary: Denies: dysuria. Musculoskeletal: Denies: back pain, gout, joint pain, joint swelling. Skin: Denies: cysts. Neurological/Psychological: Denies: anxiety, ataxia, confusion. Hematologic/Endocrine: Denies: bruising, bleeding. Exam & Diagnostic Data Last 24 Hrs of Vital Signs/I&O Vital Signs Date Time Temp Pulse Resp B/P B/P Pulse O2 O2 Flow FiO2 Mean Ox Delivery Rate 08/31 1554 99.6 92 18 110/62 08/31 1552 99.6 92 18 110/62 96 Room Air 08/31 1345 100.3 95 20 107/56 08/31 1345 100.3 95 20 107/56 95 Room Air 08/31 1145 99.2 99 20 100/65 08/31 1145 99.2 99 20 100/65 94 Room Air 08/31 0945 98.0 95 20 114/70 08/31 0945 98.0 95 20 114/70 95 Room Air 08/31 0745 98.6 85 20 90/60 08/31 0745 98.6 85 20 90/60 96 Room Air 08/31 0641 83 16 87/53 93 Room Air 08/31 0503 97.3 79 18 109/56 93 Room Air 08/31 0500 97.3 79 20 109/56 08/31 0131 95.8 81 18 111/79 93 Room Air Intake & Output 08/31 1600 08/31 0800 08/31 0000 Intake Total Output Total Balance Patient 165 lb Weight Weight Reported by Patient Measurement Method Physical Exam General Appearance Alert, Oriented X3, Mild Distress Skin No Rashes, No Breakdown HEENT Atraumatic, PERRLA, EOMI Cardiovascular Regular Rate, Normal S1, Normal S2 Lungs Clear to Auscultation Abdomen Normal Bowel Sounds, Soft, No Tenderness Extremities bilateral hand tremor on exam Last 24 Hrs of Labs/Deric: Laboratory Tests 08/31/16 0751: Urine Opiates Screen < 100.00, Methadone Screen < 40, Barbiturate Screen < 60, Ur Phencyclidine Scrn < 6.00, Amphetamines Screen < 100, U Benzodiazepines Scrn < 85, Urine Cocaine Screen < 50, Urine Cannabis Screen 30.70, Urine Test NEGATIVE 08/31/16 0150: Anion Gap 17 H, Estimated GFR > 60, BUN/Creatinine Ratio 4.0 L, Glucose 92, Calcium 9.2, Magnesium 1.8, Total Bilirubin 0.5, AST 64 H, ALT 41, Alkaline Phosphatase 122, Total Protein 7.9, Albumin 4.4, Globulin 3.5, Albumin/Globulin Ratio 1.3, Amylase 55, Lipase 189, CBC w Diff MAN DIFF ORDERED, RBC 4.38, MCV 98.9, MCH 33.4 H, RDW 14.7 H, MPV 8.6, Gran % 40.2 L, Lymphocytes % 51.3 H, Monocytes % 7.0, Eosinophils % 1.0, Basophils % 0.5, Absolute Granulocytes 3.1, Segmented Neutrophils 37 L, Band Neutrophils 4, Absolute Lymphocytes 4.0 H, Lymphocytes 52 H, Monocytes 5, Absolute Monocytes 0.5, Eosinophils 2, Absolute Eosinophils 0.1, Absolute Basophils 0, Platelet Estimate ADEQUATE, Normocytic RBCs VERIFIED, Normochromic RBCs VERIFIED, PUBS MCHC 33.8, Salicylates < 1.0, Acetaminophen < 10.0 L, Serum Alcohol 433.0 Microbiology 08/31 1606 LOWER RESP: Respiratory Culture - ORD 08/31 1606 LOWER RESP: Gram Stain - ORD Assessment/Plan Assessment: Patient is a 36-year-old woman with a past medical history significant for alcohol abuse, multiple time admissions for alcohol detox, history of anxiety and depression, peripheral neuropathy, history of seizure disorder presented to the ED requesting detox. Vitals on admission temperature 95.8(now febrile 100.3), pulse 81, respiratory rate 18, blood pressure 111/79 ,saturating more than 92% on room air. Pertinent labs on admission, WBC count, H&H stable, elevated anion gap 17, AST high at 64 Urine serology positive for alcohol 433. Assessment and plan Patient is a 36-year-old woman with a past medical history significant for alcohol abuse, multiple times admission[facility] for alcohol dependence/withdrawal for very volunteer detox, history of anxiety and depression, peripheral neuropathy, history of seizure disorder presented to the ED requesting detox. Problem list Alcohol abuse requesting detox Productive cough: Possible underlying viral versus bacterial bronchitis History of anxiety and depression History of seizure disorder History of tachycardia History of hypomagnesemia Thrombocytopenia plan : Alcohol abuse requesting detox * Admit the patient to the [facility] floor * Start the patient on Ativan as per [facility] protocol. * Start the patient on scheduled Ativan 1.5 mg every 6. * Check EKG for QTC is normal continue Zofran as needed for nausea and vomiting * Continue thiamine and folate and vitamin B12 * structural ironworker consult in the morning * Consider psych consult. * Watch for any withdrawal seizures. Productive cough: Possible underlying viral versus bacterial bronchitis * Will order chest x-ray to rule out any underlying pneumonia/proctitis * Start the patient on Robitussin as needed for cough * Sputum culture History of anxiety and depression * Continue home dose of Cymbalta History of tachycardia * History of home dose of metoprolol. History of seizure disorder * Continue home dose of Tegretol . History peripheral neuropathy: * Continue home dose of gabapentin History of alcoholic gastritis/GERD * Continue home dose of omeprazole. History of hypomagnesemia(Most likely secondary to chronic malnutrition) Thrombocytopenia Moderate to severe pain control with oxycodone DVT prophylaxis with subcutaneous Lovenox Patient is full code As Ranked By This Provider Problem List: 1. ALCOHOLISM 2. Alcohol dependence 3. Anxiety Core Measures/Miscellaneous Acute Coronary Syndrome ACS Diagnosis: No Cerebrovascular Accident CVA/TIA Diagnosis: No Congestive Heart Failure CHF Diagnosis: No VTE (View Protocol) VTE Risk Factors: Acute medical illness, Age > 40 [facility] prophylaxis d/t: VTE low risk, No contraindications No VTE Pharm Prophylaxis d/t: No contraindications VTE Diagnosis: No VTE Type: NONE VTE Confirmed by (Test): NONE Sepsis (View Protocol) Severe Sepsis Present: No Septic Shock Septic Shock Present: No Miscellaneous Documentation Attending Case Discussed With: GENESIS BRITTON MD Primary Care Physician: RIP MERCEDES MD Patient sees these Specialists Not available at this time . Level of Patient Care: General Medicine Resident Review Statement Resident Statement: examined this patient, discussed with international accounting manager GENESIS BRITTON MD 08/31/161926: Attending MD Review Statement Attending Statement Attending MD Statement: examined this patient, discuss w/resident/PA/FENCE MANUFACTURE SUPERVISOR, agreed w/resident/PA/FENCE MANUFACTURE SUPERVISOR, reviewed EMR data (avail) Attending Assessment/Plan: 36F PMH EtOH abuse presenting for alcohol detox with history of withdrawal seizure, initial EtOH >400, elevated CIWA in ED, appears agitated, tachycardic, diaphoretic despite Ativan. Also complaining of cough and mild SOB, given Augmentin as outpatient for bronchitis. Hemodynamically stable, labs reviewed. 1. Alcohol withdrawal 2. EtOH abuse 3. Acute bronchitis Plan - Admit to general medicine - Ativan standing and PRN CIWA - TRC/nebulizers - IV hydration - Monitor electrolytes - Continue home medications - DVT PPx
--- NOTE | 2016-08-31 18:58 | RADIOLOGY REPORT ---
EXAMINATION: XR PORTABLE CHEST CLINICAL INFORMATION: Fever. Cough. Presumptive diagnosis of bronchiolitis/pneumonia. COMPARISON: Chest x-ray dated 08/08/2016, 05/23/2016 and 02/21/2011. TECHNIQUE: Portable AP semierect view of the chest was obtained. FINDINGS: The cardiomediastinal silhouette is within normal limits in size. Mild diffuse thickening of the central airways is seen. Linear opacity in the right midlung is most consistent with subsegmental atelectasis. There are subtle areas of opacities seen in the left mid and lower lung, possibly related to other areas of subsegmental atelectasis. No effusion or pneumothorax is seen. Bony structures are unremarkable. IMPRESSION: Findings are suspicious for reactive airways disease or bronchitis with scattered areas of atelectasis in the lungs. Recommend follow-up PA and lateral views of the chest post treatment to document resolution of findings.
--- NOTE | 2016-08-31 19:33 | Admission Certification ---
Admission Certification Certification Statement - As attending physician, I certify that at the time of - admission, based on clinical presentation, severity of - symptoms, need for further diagnostic testing and - therapeutic interventions, and risk of adverse outcomes - without in-hospital treatment, in my clinical assessment, - this patient requires an acute hospital stay for a minimum - of two nights or longer. I have also considered psychsocial - factors such as support system, advanced age, financial - issues, cognitive issues, and failed out-patient treatments, - past re-admission history, safety of patient, and lack of - compliance as applicable. Specific rationale supporting this admission is: Alcohol withdrawal with high seizure risk and elevated CIWA
[2016-09-01] VITALS (8 sets, daily range): BP systolic 93–140; BP diastolic 60–80
[2016-09-01 06:14] LABS: ABSOLUTE BASOPHIL COUNT 0 /CUMM (0.0-0.2); ABSOLUTE EOSINOPHIL COUNT 0 /CUMM (0.0-0.7); ABSOLUTE GRANULOCYTE CT 5.4 /CUMM (1.4-6.5); ABSOLUTE MONOCYTE COUNT 0.5 /CUMM (0.10-0.60); BASOPHIL % 0.4 % (0.0-2.0); EOSINOPHIL % 0.6 % (0-5); MEAN CORPUSCULAR HGB 33.3 PG (27.0-31.0); MEAN CORPUSCULAR HGB CONC 33.9 G/DL (33.0-37.0); MEAN CORPUSCULAR VOLUME 98.1 FL (81.0-99.0); MEAN PLATELET VOLUME 9.5 FL (7.4-10.4); PLATELET COUNT 82 /CUMM (130-400); RBC DISTRIBUTION WIDTH 14.1 % (11.5-14.5); RED BLOOD CELL CT 4.07 /CUMM (4.20-5.40); WHITE BLOOD CELL COUNT 7.9 /CUMM (4.8-10.8)
[2016-09-01 06:16] LABS: GRANULOCYTE % 67.7 % (42.2-75.2)
--- NOTE | 2016-09-01 07:17 | PN- Housestaff ---
See Addendum Subjective Follow-up For: Alcohol Detox Subjective: I have personally seen and examined the patient this morning. Denies any overnight events, hallucinations, tremors or vomiting. Still complains of some cough. Review of Systems Constitutional: Denies: no symptoms. EENTM: Denies: no symptoms. Respiratory: Reports: cough. Gastrointestinal: Denies: no symptoms. Genitourinary: Denies: no symptoms. Musculoskeletal: Denies: no symptoms. Skin: Denies: no symptoms. Neurological/Psychological: Denies: no symptoms. Objective Last 24 Hrs of Vital Signs/I&O Vital Signs Date Time Temp Pulse Resp B/P B/P Pulse O2 O2 Flow FiO2 Mean Ox Delivery Rate 09/01 1559 98.8 09/01 1432 98.8 80 20 140/80 95 09/01 1400 98.6 92 80 135/68 09/01 1256 100.3 97 18 117/60 09/01 1235 100.3 97 18 117/60 96 Room Air 09/01 1216 101.0 09/01 1124 101.0 98 20 98/55 96 Room Air 09/01 1040 97.9 90 18 99/72 09/01 1039 97.9 90 18 99/72 95 Room Air 09/01 0908 97.5 96 18 93/60 /18 0908 97.5 96 18 93/60 09/01 0908 97.5 96 18 93/60 94 Room Air 09/01 0906 97.5 / 0818 101.0 09/01 0808 101.0 98 22 102/69 09/01 0751 101.0 98 22 102/69 98 Room Air 09/01 0559 99.4 104 18 115/69 93 Room Air 09/01 0030 98.0 94 16 117/68 08/31 2338 98.0 94 18 117/68 98 Room Air 08/31 2038 98.2 105 16 112/71 92 Room Air 08/31 1801 98.9 89 18 106/62 08/31 1801 98.9 89 18 106/62 96 Room Air Intake & Output 09/01 1600 09/01 0800 09/01 0000 Intake Total Output Total Balance Patient 172 lb Weight Weight Reported by Patient Measurement Method Physical Exam General Appearance: Alert, Oriented X3, Cooperative Skin: No Rashes, No Breakdown Sepsis Skin Exam (color): Normal for Ethnicity HEENT: Atraumatic, PERRLA, EOMI, Mucous Membr. moist/pink Neck: Supple, No JVD Cardiovascular: Regular Rate, Normal S1, Normal S2, No Murmurs Lungs: Clear to Auscultation, Normal Air Movement Abdomen: Normal Bowel Sounds, Soft, No Tenderness Neurological: Normal Gait, Normal Speech, Strength at 5/5 X4 Ext, Normal Tone, Sensation Intact Extremities: No Clubbing, No Cyanosis, No Edema Assessment/Plan Assessment: Patient is a 36-year-old woman with a past medical history significant for alcohol abuse, multiple times admissiont [facility] for alcohol dependence/withdrawal for very volunteer detox, history of anxiety and depression, peripheral neuropathy, history of seizure disorder presented to the ED requesting detox. Alcohol abuse requesting detox * Start the patient on Ativan as per [facility] protocol. * Start the patient on scheduled Ativan 1.5 mg every 6. * Check EKG for QTC is normal continue Zofran as needed for nausea and vomiting * Continue thiamine and folate and vitamin B12 * spice room worker consulted. * Psych consulted. * Watch for any withdrawal seizures. Productive cough: Possible underlying viral versus bacterial bronchitis * CXR shows Reactive airway disease or bronchitis. * PAtient has been spiking low grade fevers, started on Ceftriaxone and azithromycin for possible CAP. * Patient on Robitussin as needed for cough * Follow blood cultures and Sputum culture History of anxiety and depression * Continue home dose of Cymbalta History of tachycardia * History of home dose of metoprolol. History of seizure disorder * Continue home dose of Tegretol . History peripheral neuropathy: * Continue home dose of gabapentin History of alcoholic gastritis/GERD * Continue home dose of omeprazole. History of hypomagnesemia(Most likely secondary to chronic malnutrition) Thrombocytopenia; 82 today. Will keep monitoring. Moderate to severe pain control with oxycodone DVT prophylaxis with subcutaneous Lovenox Patient is full code Problem List: 1. Alcohol dependence 2. Acute bronchitis 3. Hypomagnesemia Pain Ratin Pain Location: None Pain Goal: Remain pain free Pain Plan: None Tomorrow's Labs & Rationales: CBC(Thrombocytopenia)
[2016-09-02] VITALS (7 sets, daily range): BP systolic 112–145; BP diastolic 60–90
--- NOTE | 2016-09-02 09:07 | PN- Housestaff ---
ARLETH DOUGHERTY,[facility] 09/02/16 0906: Subjective Follow-up For: Alcohol Detox Pneumonia Subjective: Patient was anxious this morning and was also complaining of hand tremors. Was able to sleep well last night though. Patient still has some cough but denies any fever, chills, nausea, vomiting, hallucinations or overnight events. Review of Systems Constitutional: Denies: no symptoms. EENTM: Denies: no symptoms. Cardiovascular: Denies: no symptoms. Respiratory: Reports: cough. Gastrointestinal: Denies: no symptoms. Genitourinary: Denies: no symptoms. Musculoskeletal: Denies: no symptoms. Skin: Denies: no symptoms. Neurological/Psychological: Reports: anxiety. Objective Last 24 Hrs of Vital Signs/I&O Vital Signs Date Time Temp Pulse Resp B/P B/P Pulse O2 O2 Flow FiO2 Mean Ox Delivery Rate 09/02 0957 Room Air Room Air 09/02 0940 98 136/90 09/02 0630 98.3 81 20 140/84 95 Room Air 09/01 2245 98.1 76 20 130/80 96 Room Air 09/01 1559 98.8 09/01 1432 98.8 80 20 140/80 95 09/01 1400 98.6 92 80 135/68 09/01 1256 100.3 97 18 117/60 09/01 1235 100.3 97 18 117/60 96 Room Air 09/01 1216 101.0 Physical Exam General Appearance: Alert, Oriented X3, Cooperative Other Physical Findings: Skin: No Rashes, No Breakdown Sepsis Skin Exam (color): Normal for Ethnicity HEENT: Atraumatic, PERRLA, EOMI, Mucous Membr. moist/pink Neck: Supple, No JVD Cardiovascular: Regular Rate, Normal S1, Normal S2, No Murmurs Lungs: Clear to Auscultation, Normal Air Movement Abdomen: Normal Bowel Sounds, Soft, No Tenderness Neurological: Normal Gait, Normal Speech, Strength at 5/5 X4 Ext, Normal Tone, Sensation Intact Extremities: No Clubbing, No Cyanosis, No Edema Current Medications: Current Medications Sig/Carola Start time Last Medication Dose Route Stop Time Status Admin Acetaminophen 650 MG Q6P PRN 08/31 1530 AC 09/01 PO 0818 Albuterol Sulfate 2 PUF Q6PRN PRN 09/02 1015 AC INH Azithromycin 500 MG DAILY 09/01 1036 AC 09/01 Sodium Chloride 250 ML IV 1216 Carbamazepine 200 MG BID 08/31 2200 AC 09/02 PO 0940 Ceftriaxone Sodium 1,000 MG DAILY 09/01 1035 AC 09/01 IV 1216 Cyanocobalamin 1,000 MCG DAILY 09/01 1000 AC 09/02 PO 0940 Ferrous Sulfate 325 MG DAILY 09/01 1000 AC 09/02 PO 0939 Folic Acid 1 MG DAILY 08/31 1530 AC 09/02 PO 0939 Gabapentin 300 MG TID 08/31 1607 AC 09/02 PO 0940 Guaifenesin 10 ML .STK-MED ONE 09/01 2059 DC PO 09/01 2100 Guaifenesin 10 ML Q6P PRN 08/31 1615 AC 09/02 PO 0938 Ibuprofen 0 .STK-MED ONE 09/01 1209 DC PO Ibuprofen 400 MG Q6P PRN 09/01 1200 AC 09/01 PO 2054 Lorazepam 1 MG Q8 09/02 1400 AC PO Lorazepam 0 .STK-MED ONE 09/01 1210 DC PO Lorazepam 1 MG Q6 09/01 1200 DC 09/02 PO 0553 Lorazepam 0 Q1P PRN 08/31 1530 AC 09/02 IV 0937 Metoprolol Succinate 50 MG DAILY 08/31 1607 AC 09/02 PO 0940 Nicotine 14 MG DAILY 09/01 2102 AC 09/02 TOP 0939 Oxycodone HCl 5 MG Q8P PRN 08/31 1530 AC PO Oxycodone HCl 10 MG Q6-PRN PRN 08/31 1530 AC PO Potassium Chloride 40 MEQ ONCE ONE 09/02 1030 DC PO 09/02 1031 Sodium Chloride 1,000 ML Q13H 08/31 2015 DC 09/01 IV 2054 Terbinafine HCl 250 MG DAILY 09/01 1000 AC 09/02 PO 0940 Thiamine HCl 100 MG DAILY 08/31 1530 AC 09/02 PO 0940 Last 24 Hrs of Lab/Deric Results Last 24 Hrs of Labs/Mics: Laboratory Tests 09/02/16 0714: Anion Gap 9, Estimated GFR > 60, BUN/Creatinine Ratio 6.7 L 09/01/16 1235: Anion Gap 10, Estimated GFR > 60, BUN/Creatinine Ratio 7.1 Assessment/Plan Assessment: Patient is a 36-year-old woman with a past medical history significant for alcohol abuse, multiple times admissiont [facility] for alcohol dependence/withdrawal for very volunteer detox, history of anxiety and depression, peripheral neuropathy, history of seizure disorder presented to the ED requesting detox. Alcohol abuse requesting detox * Patient is on Ativan as per CIWA protocol. Dose decreased to Ativan 1 mg Q8H. * Check EKG for QTC is normal continue Zofran as needed for nausea and vomiting * Continue thiamine and folate and vitamin B12 * cemetery workers supervisor consulted. * Psych consulted. * Watch for any withdrawal seizures. Productive cough: Possible underlying viral versus bacterial bronchitis * CXR shows Reactive airway disease or bronchitis. * PAtient has been spiking low grade fevers when she came in but afebrile since then, patient was started on Ceftriaxone and azithromycin for possible CAP. Will continue the antibiotics. * Patient on Robitussin as needed for cough * Follow blood cultures and Sputum culture * Intensive spirometry Hypokalemia: * Repleted with K-dur 40 mEq once. Will reckeck levels tomorrow. History of anxiety and depression * Continue home dose of Cymbalta History of tachycardia * History of home dose of metoprolol. History of seizure disorder * Continue home dose of Tegretol . History peripheral neuropathy: * Continue home dose of gabapentin History of alcoholic gastritis/GERD * Continue home dose of omeprazole. History of hypomagnesemia(Most likely secondary to chronic malnutrition) Thrombocytopenia; 82 today. Will keep monitoring. Moderate to severe pain control with oxycodone DVT prophylaxis with subcutaneous Lovenox Patient is full code Problem List: 1. ALCOHOLISM 2. Hypomagnesemia 3. Acute bronchitis Pain Ratin Pain Location: None Pain Goal: Remain pain free Pain Plan: None Tomorrow's Labs & Rationales: CBC(Pneumonia), BEP (Hypokalemia) GENESIS BRITTON MD 09/02/16 1322: Attending MD Review Statement Attending Statement Attending MD Statement: examined this patient, discuss w/resident/PA/STUDENT SUCCESS ADVISOR, agreed w/resident/PA/STUDENT SUCCESS ADVISOR, reviewed EMR data (avail) Attending Assessment/Plan: 36F PMH EtOH abuse presenting for alcohol detox with history of withdrawal seizure, initial EtOH >400, elevated CIWA in ED, appears agitated, tachycardic, diaphoretic despite Ativan. Also complaining of cough and mild SOB, given Augmentin as outpatient for bronchitis. Hemodynamically stable, labs reviewed. 1. Alcohol withdrawal 2. EtOH abuse 3. Acute bronchitis Plan - Admit to general medicine - Ativan standing and PRN CIWA - TRC/nebulizers - Spiked overnight, will treat for CAP - Sputum culture - IV hydration - Monitor electrolytes - Continue home medications - DVT PPx
[2016-09-02] MEDS ORDERED: PROAIR HFA8.5 GM INH (09:16)
[2016-09-03] VITALS (8 sets, daily range): BP systolic 118–150; BP diastolic 70–100
--- NOTE | 2016-09-03 08:39 | PN- Housestaff ---
ARLETH DOUGHERTY,[facility] 09/03/16 0839: Subjective Follow-up For: Alcohol Detox CAP Hypokalemia Subjective: Patient is stable, vitals WNL. Patient reports having some hallucinations and vivid dreams last night, and still have the tremors in her hands. She continues to have the cough. Denies any fever, Chills, nausea, vomiting, SOB or chest pain. Review of Systems Constitutional: Reports: no symptoms. EENTM: Reports: no symptoms. Cardiovascular: Reports: no symptoms. Respiratory: Reports: cough. Gastrointestinal: Reports: no symptoms. Genitourinary: Reports: no symptoms. Musculoskeletal: Denies: no symptoms. Skin: Reports: no symptoms. Neurological/Psychological: Reports: no symptoms, tremors. Hematologic/Endocrine: Reports: no symptoms. Immunologic/Allergic: Reports: no symptoms. Objective Last 24 Hrs of Vital Signs/I&O Vital Signs Date Time Temp Pulse Resp B/P B/P Pulse O2 O2 Flow FiO2 Mean Ox Delivery Rate 09/03 1411 98.2 91 18 130/70 98 Room Air 09/03 1136 98.8 77 20 120/82 96 09/03 1007 98.7 77 20 125/80 99 09/03 0800 Room Air 09/03 0600 98.3 86 18 150/90 96 Room Air 09/03 0226 99.0 92 18 130/100 96 Room Air 09/02 2219 98.8 98 20 145/80 96 09/02 1800 97.8 80 16 128/70 09/02 1700 98.1 77 18 118/60 09/02 1600 Room Air 09/02 1432 99.2 104 20 120/60 97 Intake & Output 09/03 1600 09/03 0800 09/03 0000 Intake Total 1020 Output Total Balance 1020 Intake, IV 20 Intake, Oral 1000 Number 1 Bowel Movements Physical Exam General Appearance: Alert, Oriented X3, Cooperative Other Physical Findings: Skin: No Rashes, No Breakdown Sepsis Skin Exam (color): Normal for Ethnicity HEENT: Atraumatic, PERRLA, EOMI, Mucous Membr. moist/pink Neck: Supple, No JVD Cardiovascular: Regular Rate, Normal S1, Normal S2, No Murmurs Lungs: Clear to Auscultation, Normal Air Movement Abdomen: Normal Bowel Sounds, Soft, No Tenderness Neurological: Normal Gait, Normal Speech, Strength at 5/5 X4 Ext, Normal Tone, Sensation Intact Extremities: No Clubbing, No Cyanosis, No Edema Current Medications: Current Medications Sig/Carola Start time Last Medication Dose Route Stop Time Status Admin Acetaminophen 650 MG Q6P PRN 08/31 1530 AC 09/01 PO 0818 Albuterol Sulfate 2 PUF Q6PRN PRN 09/02 1015 AC 09/03 INH 1146 Amoxicillin/ 875 MG Q12 09/03 1000 AC 09/03 Clavulanate Potassium PO 09/05 2200 1138 Azithromycin 500 MG DAILY 09/01 1036 DC 09/02 Sodium Chloride 250 ML IV 1135 Carbamazepine 200 MG BID 08/31 2200 AC 09/03 PO 1137 Ceftriaxone Sodium 1,000 MG DAILY 09/01 1035 DC 09/02 IV 1135 Cyanocobalamin 1,000 MCG DAILY 09/01 1000 AC 09/03 PO 1137 Ferrous Sulfate 325 MG DAILY 09/01 1000 AC 09/03 PO 1136 Folic Acid 1 MG DAILY 08/31 1530 AC 09/03 PO 1137 Gabapentin 300 MG TID 08/31 1607 AC 09/03 PO 1137 Guaifenesin 10 ML .STK-MED ONE 09/02 1609 DC PO 09/02 1610 Guaifenesin 10 ML Q6P PRN 08/31 1615 AC 09/03 PO 1146 Ibuprofen 400 MG Q6P PRN 09/01 1200 AC 09/01 PO 2054 Lorazepam 2 MG Q8 09/03 2200 AC PO Lorazepam 2 MG ONCE PRN 09/03 1400 DC 09/03 PO 09/03 1500 1411 Lorazepam 0 Q1P PRN 09/03 1315 DC PO 09/10 1314 Lorazepam 1 MG Q8 09/02 1400 DC 09/03 PO 0555 Lorazepam 0 Q1P PRN 08/31 1530 DC 09/03 IV 0223 Metoprolol Succinate 50 MG DAILY 08/31 1607 AC 09/03 PO 1137 Nicotine 14 MG DAILY 09/01 210 AC 09/03 TOP 1137 Oxycodone HCl 5 MG Q8P PRN 08/31 1530 AC PO Oxycodone HCl 10 MG Q6-PRN PRN 08/31 1530 AC PO Terbinafine HCl 250 MG DAILY 09/01 1000 AC 09/03 PO 1137 Thiamine HCl 100 MG DAILY 08/31 1530 AC 09/03 PO 1137 Last 24 Hrs of Lab/Deric Results Last 24 Hrs of Labs/Mics: Laboratory Tests 09/03/16 0725: Anion Gap 11, Estimated GFR > 60, BUN/Creatinine Ratio 4.0 L Assessment/Plan Assessment: Patient is a 36-year-old woman with a past medical history significant for alcohol abuse, multiple times admissiont [facility] for alcohol dependence/withdrawal for very volunteer detox, history of anxiety and depression, peripheral neuropathy, history of seizure disorder presented to the ED requesting detox. Alcohol abuse requesting detox * Patient is on Ativan as per [facility] protocol. Currently on Ativan 2mg Q8H. * Zofran as needed for nausea and vomiting * Continue thiamine and folate and vitamin B12 * print binding worker consulted: Will Follow * Psych consulted. * Watch for any withdrawal seizures. Productive cough: Possible underlying viral versus bacterial bronchitis * CXR shows Reactive airway disease or bronchitis. * PAtient has been spiking low grade fevers when she came in but afebrile since then, patient was started on IV Ceftriaxone and azithromycin for possible CAP. Will switch to PO Augmentin today x 3days. * Patient on Robitussin as needed for cough * Follow blood cultures and Sputum culture. * Intensive spirometry. Hypokalemia: * Resolved. Repleted with K-dur 40 mEq once. History of anxiety and depression * Continue home dose of Cymbalta History of tachycardia * History of home dose of metoprolol. History of seizure disorder * Continue home dose of Tegretol . History peripheral neuropathy: * Continue home dose of gabapentin History of alcoholic gastritis/GERD * Continue home dose of omeprazole. History of hypomagnesemia(Most likely secondary to chronic malnutrition) Thrombocytopenia; Will keep monitoring. Moderate to severe pain control with oxycodone DVT prophylaxis with subcutaneous Lovenox Patient is full code Problem List: 1. Alcohol dependence 2. Hypomagnesemia 3. Acute bronchitis Pain Ratin Pain Location: None Pain Goal: Remain pain free Pain Plan: None Tomorrow's Labs & Rationales: CBC(Thrombocytopenia) GENESIS BRITTON MD 09/03/16 1336: Attending MD Review Statement Attending Statement Attending MD Statement: examined this patient, discuss w/resident/PA/SEWING INSPECTOR, agreed w/resident/PA/SEWING INSPECTOR, reviewed EMR data (avail) Attending Assessment/Plan: 36F PMH EtOH abuse presenting for alcohol detox with history of withdrawal seizure, initial EtOH >400, elevated CIWA in ED, appears agitated, tachycardic, diaphoretic despite Ativan. Also complaining of cough and mild SOB, given Augmentin as outpatient for bronchitis. Hemodynamically stable, labs reviewed. 1. Alcohol withdrawal 2. EtOH abuse 3. Acute bronchitis Plan - Admit to general medicine - Ativan standing and PRN CIWA - TRC/nebulizers - Continue antibiotics - Sputum culture - IV hydration - Monitor electrolytes - Continue home medications - DVT PPx - Likely discharge on 09/05, as patient still requiring multiple PRN Ativan doses
--- NOTE | 2016-09-03 16:50 | Discharge Summary ---
Visit Information Visit Dates Admission Date: 08/31/16 Discharge Date: 09/05/16 Hospital Course Course Attending Physician: GENESIS BRITTON MD Primary Care Physician: MAGO DOUGHERTY,RIP Beck Hospital Course: Patient is a 36-year-old woman with a past medical history significant for alcohol abuse, multiple time admissions for alcohol detox, history of anxiety and depression, peripheral neuropathy, history of seizure disorder presented to the ED requesting detox. Vitals on admission temperature 95.8(now febrile 100.3), pulse 81, respiratory rate 18, blood pressure 111/79 ,saturating more than 92% on room air. Pertinent labs on admission, WBC count, H&H stable, elevated anion gap 17, AST high at 64 Urine serology positive for alcohol 433. CXR IMPRESSION: Findings are suspicious for reactive airways disease or bronchitis with scattered areas of atelectasis in the lungs. Recommend follow-up PA and lateral views of the chest post treatment to document resolution of findings. Patient was admitted to the General medicine floor and treated for following problems: Problem list Alcohol abuse requesting detox Productive cough: Possible underlying viral versus bacterial bronchitis History of anxiety and depression History of seizure disorder History of tachycardia History of hypomagnesemia Thrombocytopenia Alcohol detox: Patient was started on ativan per [facility] protocol and tapered gradually. Patient will recieve her last dose of ativan tomorrow(wednesday). Social Work consulted: Patient does not was not go to any intensive inpatient therapy. Will follow up with [facility] in [place] for her therapy. Community Accquired Pneumonia: CXR showed Reactive airway disease or bronchitis. Patient had been spiking low grade fevers when she came in but later throughout her stay in the hospital, patient was started on IV Ceftriaxone and azithromycin for possible CAP and later switched to Augmentin. Blood cultures were negative. Hypokalemia and Hypomagnesemia: * Resolved. Hypokalemia treated with K-dur 40 mEq once and Magnesium (0.8mg/dl) was repleted with Slow-Mag tablets. Thrombocytopenia: was likely secondary to alcohol abuse. History of anxiety and depression * Home dose of Cymbalta was continued. Patient was also started on campral 666mg TID and Zoloft 50mg daily as per Psych recommendations. 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 History of tachycardia,seizure disorder,peripheral neuropathy and alcoholic gastritis/GERD: * Patient was continued on her home meds. Allergies: Coded Allergies: Sulfa (Sulfonamide Antibiotics) (UNKNOWN 05/20/16) Disposition Summary Disposition Principal Diagnosis: Alcohol Detox Pneumonia Additional Diagnosis: Hypomagnesemia Hypokalemia Anxiety and depression Peripheral neuropathy: Discharge Disposition: home or self care Discharge Instructions General Discharge Information Code Status: Full Code Patient's Diet: Regular diet Patient's Activity: As tolerated. Follow-Up Instructions/Appts: Please follow up with your PCP within a week. Please follow up with [facility] in [place] for your therapy. Medications at Discharge Discharge Medications: Stop taking the following medications: Pantoprazole Sodium (Protonix) 40 MG TABLET.DR ORAL DAILY Continue taking these medications: Gabapentin (Gabapentin) 300 MG CAPSULE 1 Capsule ORAL THREE TIMES DAILY Qty = 90 Comments: Last Taken:05/29/16 Time: 10AM Carbamazepine (Tegretol XR) 200 MG TAB.ER.12H 1 Tablet ORAL TWICE DAILY Qty = 60 Comments: Last Taken: 05/29/16 Time: 10AM Metoprolol Succinate (Metoprolol Succinate) 50 MG TAB.ER.24H 1 Tablet ORAL DAILY Qty = 30 Comments: Last Taken: 05/29/16 Time: 10AM Ferrous Sulfate (Ferrous Sulfate) 325 MG (65 MG IRON) TABLET 1 Tablet ORAL DAILY Comments: Last Taken: 05/29/16 Time: 10AM Folic Acid (Folic Acid) 0.8 MG TABLET 1 Tablet ORAL DAILY Comments: Last Taken: 05/29/16 Time: 10AM Vitamin C/Biotin (Zpqz-Idzi-Kdpln Gummies) 50 MG-1,250 MCG TAB.CHEW 2 Tablet ORAL DAILY Comments: NOT GIVEN IN HOSPITAL Terbinafine HCl (Terbinafine HCl) 250 MG TABLET 1 Tablet ORAL DAILY Qty = 30 Albuterol Sulfate (Proair Hfa) 90 MCG HFA.AER.AD 2 Puff Inhale through mouth EVERY 4-6 HOURS NEEDED as needed for BREATHING PROBLEMS Qty = 9 Start taking the following new medications: Sertraline HCl (Sertraline HCl) 50 MG TABLET 1 Tablet ORAL DAILY Qty = 30 No Refills Acamprosate Calcium (Acamprosate Calcium) 333 MG TABLET.DR 2 Tablet ORAL THREE TIMES DAILY Qty = 180 No Refills Lorazepam (Lorazepam) 1 MG TABLET 1 Tablet ORAL GIVE ONCE Qty = 2 No Refills Magnesium Chloride (Slow-Mag) 71.5 MG TABLET.DR 1 Tablet ORAL DAILY Qty = 10 No Refills Copies To: RIP MERCEDES MD No Refills Copies To: RIP MERCEDES MD
[2016-09-04] VITALS (13 sets, daily range): BP systolic 110–132; BP diastolic 64–96
--- NOTE | 2016-09-04 06:59 | PN- Housestaff ---
ARLETH DOUGHERTY,[facility] 09/04/16 0658: Subjective Follow-up For: ALcohol detox CAP Subjective: Patient reports improvement in her tremors and cough. Was able to sleep last night without having any vivid dreams or hallucinations. Denies any fever, chills, SOB, nausea, vomiting or overnight events. Patient wanted to know why she was put on precautions. Review of Systems Constitutional: Reports: no symptoms. EENTM: Reports: no symptoms. Cardiovascular: Reports: no symptoms. Respiratory: Denies: cough. Gastrointestinal: Reports: no symptoms. Genitourinary: Reports: no symptoms. Musculoskeletal: Denies: no symptoms. Skin: Reports: no symptoms. Neurological/Psychological: Denies: anxiety, tremors. Hematologic/Endocrine: Reports: no symptoms. Immunologic/Allergic: Reports: no symptoms. Objective Last 24 Hrs of Vital Signs/I&O Vital Signs Date Time Temp Pulse Resp B/P B/P Pulse O2 O2 Flow FiO2 Mean Ox Delivery Rate 09/04 0933 80 122/80 09/04 0703 97.8 93 24 132/70 98 09/04 0600 98.0 102 16 122/74 09/04 0400 98.5 102 18 120/80 09/04 0235 98.5 102 18 120/80 98 Room Air 09/04 0200 98.5 102 18 120/80 09/04 0000 97.5 71 18 130/70 09/04 0000 98 Room Air 09/03 2141 97.5 71 18 130/70 96 09/03 1926 99.1 97 16 118/78 09/03 1811 99.4 68 20 134/80 96 Room Air 09/03 1600 Room Air 09/03 1411 98.2 91 18 130/70 98 Room Air Intake & Output 09/04 1600 09/04 0800 09/04 0000 Intake Total 360 2000 Output Total Balance 360 2000 Intake, Oral 360 1999 Physical Exam General Appearance: Alert, Oriented X3, Cooperative Skin: No Rashes, No Breakdown Sepsis Skin Exam (color): Normal for Ethnicity HEENT: Atraumatic, PERRLA, EOMI Neck: Supple, No JVD, No thryomegaly Lymphatic: Cervical nl Cardiovascular: Regular Rate, Normal S1, Normal S2, No Murmurs Lungs: Clear to Auscultation, Normal Air Movement Abdomen: Normal Bowel Sounds, No Tenderness Extremities: No Clubbing, No Cyanosis, No Edema, Normal Pulses Assessment/Plan Assessment: Patient is a 36-year-old woman with a past medical history significant for alcohol abuse, multiple times admissiont [facility] for alcohol dependence/withdrawal for very volunteer detox, history of anxiety and depression, peripheral neuropathy, history of seizure disorder presented to the ED requesting detox. Alcohol abuse requesting detox * Patient is on Ativan as per CIWA protocol. Currently on Ativan 2mg Q8H. * Zofran as needed for nausea and vomiting * Continue thiamine and folate and vitamin B12 * tankroom worker consulted: Will Follow * Psych consulted. * Watch for any withdrawal seizures. Productive cough: Possible underlying viral versus bacterial bronchitis * CXR shows Reactive airway disease or bronchitis. * PAtient has been spiking low grade fevers when she came in but afebrile since then, patient was started on IV Ceftriaxone and azithromycin for possible CAP. Will switch to PO Augmentin today x 3days. * Patient on Robitussin as needed for cough * Follow blood cultures and Sputum culture. * Intensive spirometry. Hypokalemia: * Resolved. Repleted with K-dur 40 mEq once. History of anxiety and depression * Continue home dose of Cymbalta History of tachycardia * History of home dose of metoprolol. History of seizure disorder * Continue home dose of Tegretol . History peripheral neuropathy: * Continue home dose of gabapentin History of alcoholic gastritis/GERD * Continue home dose of omeprazole. History of hypomagnesemia(Most likely secondary to chronic malnutrition) Thrombocytopenia; Will keep monitoring. Moderate to severe pain control with oxycodone DVT prophylaxis with subcutaneous Lovenox Patient is full code Problem List: 1. Alcohol dependence 2. Acute bronchitis Pain Ratin Pain Location: None Pain Goal: Remain pain free Pain Plan: None Tomorrow's Labs & Rationales: BEP(Hypokalemia) GENESIS BRITTON MD 09/04/16 1403: Attending MD Review Statement Attending Statement Attending MD Statement: examined this patient, discuss w/resident/PA/BLANKER PRESS OPERATOR, agreed w/resident/PA/BLANKER PRESS OPERATOR, reviewed EMR data (avail) Attending Assessment/Plan: 36F PMH EtOH abuse presenting for alcohol detox with history of withdrawal seizure, initial EtOH >400, elevated CIWA in ED, appears agitated, tachycardic, diaphoretic despite Ativan. Also complaining of cough and mild SOB, given Augmentin as outpatient for bronchitis. Patient feels much better today. She is comfortably walking around the floor. She is exhibiting no signs of alcohol withdrawal and has not needed PRN medications. Her cough and dyspnea have improved dramatically since admission. She is eating well, stable vitals. Labs show Mg 0.8 and K 3.1. 1. Alcohol withdrawal 2. EtOH abuse 3. Acute bronchitis 4. Hypomagnesemia 5. Hypokalemia Plan - Continue on general medicine for one more day - Continue Ativan taper - TRC/nebulizers - Continue antibiotics - Replete Mg with MgOx + Slo-Mag - Replete Potassium with PO - Recheck Mg and K tonight and tomorrow morning and replete accordingly - Continue home medications - DVT PPx - Anticipated discharge tomorrow pending improvement of electrolytes
[2016-09-04 08:28] LABS: ABSOLUTE BASOPHIL COUNT 0 /CUMM (0.0-0.2); ABSOLUTE EOSINOPHIL COUNT 0.1 /CUMM (0.0-0.7); ABSOLUTE GRANULOCYTE CT 4.3 /CUMM (1.4-6.5); ABSOLUTE LYMPH COUNT 2.2 /CUMM (1.2-3.4); ABSOLUTE MONOCYTE COUNT 0.5 /CUMM (0.10-0.60); BASOPHIL % 0.3 % (0.0-2.0); GRANULOCYTE % 59.7 % (42.2-75.2); HEMATOCRIT 39.2 % (37-47); MEAN CORPUSCULAR HGB 33.7 PG (27.0-31.0); MEAN CORPUSCULAR HGB CONC 33.6 G/DL (33.0-37.0); MEAN CORPUSCULAR VOLUME 100.4 FL (81.0-99.0); MEAN PLATELET VOLUME 9.9 FL (7.4-10.4); PLATELET COUNT 123 /CUMM (130-400); RBC DISTRIBUTION WIDTH 14.4 % (11.5-14.5); WHITE BLOOD CELL COUNT 7.1 /CUMM (4.8-10.8)
--- NOTE | 2016-09-04 14:05 | Cons- Psychiatry ---
Psychiatric Consult Date of Consult: 09/04/16 Reason for Consult: Anxiety Dr. Junior attending History of Present Illness: Identifying Info: 36-year-old single female sense to [facility] emergency department on 08/31/2016 requesting alcohol detox. Seen today on general medicine. CC: "Things are not too bad." HPI: This is the patient's third admission for alcohol detox at [facility] in the past 7 months. She most recently was here in July when she left AGAINST MEDICAL ADVICE. The patient reports she drinks whenever she is awake all day having for 24 ounce beers and shots of hard liquor daily. She reports that recently she was having an issue with her son so she began drinking more. She has a long history of polysubstance abuse, primarily ETOH. Of not BAL in ED was 433. Patient states "I don't really get anxious, I just get a little agitated sometimes." She relates this to her low mood at times. Discussed risks and benefits of potential treatments for anxiety and depression. She would like to trial Zoloft. Patient was interested in discussing options for medication for alcohol cravings. She states that she was previously on Vivitrol injections which were not helpful for her cravings. She was also on Antabuse for a period of time but ofte was becoming ill due to accidentally being exposed to chemicals that contained alcohol. Discussed the risks and benefits of Campral which the patient is agreeable to trial. PMH: Please see the H&P for a complete listing Peripheral neuropathy, history of seizure disorder Past Psych History: -Outpatient [facility] in [place] -Inpatient [facility] 2010 Family Psych History: Not obtained Substance History Alcohol use disorder severe -Treatment Multiple previous inpatient detoxes including at [facility], [facility], [facility], and [facility] Family Substance History: Not obtained Social: Single, currently resides in [place] [facility]. Has son. Abuse/Trauma: Not obtained Current Home Psychotropic Medications: Gabapentin 300 TID Current Hospital Psychotropic Medications: Med Gabapentin 300 MG PO TID 08/31/16 1607 Lorazepam 2 MG PO Q2 HRS NEEDED PRN 09/03/16 1930 Lorazepam 1.5 MG PO Q12 09/04/16 1000 Allergies: Coded Allergies: Sulfa (Sulfonamide Antibiotics) (UNKNOWN 05/20/16) Current Medications: Current Medications Sig/Carola Start time Last Medication Dose Route Stop Time Status Admin Acetaminophen 650 MG Q6P PRN 08/31 1530 AC 09/01 PO 0818 Albuterol Sulfate 2 PUF Q6PRN PRN 09/02 1015 AC 09/04 INH 0934 Amoxicillin/ 875 MG Q12 09/03 1000 AC 09/04 Clavulanate Potassium PO 09/051 0934 Carbamazepine 200 MG BID 08/31 2200 AC 09/04 PO 0933 Cyanocobalamin 1,000 MCG DAILY 09/01 1000 AC 09/04 PO 0933 Ferrous Sulfate 325 MG DAILY 09/01 1000 AC 09/04 PO 0933 Folic Acid 1 MG DAILY 08/31 1530 AC 09/04 PO 0934 Gabapentin 300 MG TID 08/31 1607 AC 09/04 PO 0933 Guaifenesin 10 ML .STK-MED ONE 09/04 0231 DC PO 09/04 0232 Guaifenesin 10 ML .STK-MED ONE 09/03 1756 DC PO 09/03 1757 Guaifenesin 10 ML Q6P PRN 08/31 1615 AC 09/04 PO 0932 Ibuprofen 400 MG Q6P PRN 09/01 1200 AC 09/01 PO 2054 Lorazepam 1.5 MG Q12 09/04 1000 AC 09/04 PO 0932 Lorazepam 2 MG Q8 09/03 2200 DC 09/04 PO 0500 Lorazepam 2 MG Q2 HRS NEEDED PRN 09/03 1930 AC 09/03 PO 1922 Lorazepam 2 MG ONCE PRN 09/03 1400 DC 09/03 PO 09/03 1500 1411 Lorazepam 0 Q1P PRN 09/03 1315 DC PO 09/10 1314 Lorazepam 1 MG Q8 09/02 1400 DC 09/03 PO 0555 Magnesium Oxide 400 MG ONE ONE 09/04 1315 DC PO 09/04 1316 Magnesium Oxide 800 MG ONE ONE 09/04 1215 DC 09/04 PO 09/04 1216 1230 Magnesium Sulfate 1 GM Q2H 09/04 1215 CAN Dextrose/Water 100 ML IV 09/04 1614 Metoprolol Succinate 50 MG DAILY 08/31 1607 AC 09/04 PO 0933 Nicotine 14 MG DAILY 09/01 2102 AC 09/04 TOP 0932 Oxycodone HCl 5 MG Q8P PRN 08/31 1530 AC PO Oxycodone HCl 10 MG Q6-PRN PRN 08/31 1530 AC PO Potassium Chloride 40 MEQ ONCE ONE 09/04 1200 DC 09/04 PO 09/04 1201 1230 Potassium Chloride 40 MEQ ONCE ONE 09/04 1030 DC 09/04 PO 09/04 1031 1035 Terbinafine HCl 250 MG DAILY 09/01 1000 AC 09/04 PO 0932 Thiamine HCl 100 MG DAILY 08/31 1530 AC 09/04 PO 0933 Past History Past Medical History Neurological: peripheral neuropathy, seizure (EtOH/withdrawal/febrile) EENT: NONE Cardiovascular: aortic aneurysm Respiratory: asthma Gastrointestinal: alcoholic hepatitis Hepatic: hepatic encephalopathy (questionable) Renal: NONE Musculoskeletal: NONE Psychiatric: alcohol dependence, anxiety, IV drug abuse, ANXIETY/DEPRESSION substance abuse Endocrine: hypothyroidism Blood Disorders: thrombocytopenia Cancer(s): NONE LEAD RADIATION THERAPIST/Reproductive: NONE Past Surgical History Surgical History: appendectomy Psychosocial History Strengths/Capabilities: Agreeable to tx Physical Limitations (Interventions): Chronic pattern of relapse Psychiatric Treatment History Psych Treatment Psychiatric Treatment Yes (as above) Diagnosis: Unspecifed anxiety disorder Risk Factors: SA/MH hospitalized, substance abuse Substance Use/Abuse History Drug Use/Abuse Substances Used/Abused Yes Substance Abuse Treatment Substance Abuse Treatment Past Substance Abuse [place] Yes Assessment/Plan Mental Status Mental Status Exam: Presentation/Appearance: Cooperative with evaluation. Hospital garb. Calm. Orientation: x4 Sensorium: Awake and alert Eye contact: Appropriate Affect: Somewhat blunted, tearful during interview Mood: "fine" Depression: Endorses at times Anxiety: Endorses at times Thought Content: - Denies SI/HI, AH/VH, PI. States and also believes they will not kill themselves. - Denies Hopeless/Helpless Thoughts Thought Process: Linear Associations: Appropriate Speech: WNL Judgment: Fair Insight: Fair Cognition: Memory: Grossly intact Attention/Concentration: Grossly intact Fund of Knowledge: Adequate Lab Results: Laboratory Tests 09/04/16 0515: Anion Gap 12, Estimated GFR > 60, BUN/Creatinine Ratio 8.6, Magnesium 0.8 *L, CBC w Diff NO MAN DIFF REQ, RBC 3.90 L, MCV 100.4 H, MCH 33.7 H, RDW 14.4, MPV 9.9, Gran % 59.7, Lymphocytes % 30.3, Monocytes % 7.7, Eosinophils % 2.0, Basophils % 0.3, Absolute Granulocytes 4.3, Absolute Lymphocytes 2.2, Absolute Monocytes 0.5, Absolute Eosinophils 0.1, Absolute Basophils 0, PUBS MCHC 33.6 09/03/16 0725: Anion Gap 11, Estimated GFR > 60, BUN/Creatinine Ratio 4.0 L 09/02/16 0714: Anion Gap 9, Estimated GFR > 60, BUN/Creatinine Ratio 6.7 L Diffential Diagnosis: Alcohol use disorder severe Substance-induced mood disorder versus unspecified mood disorder Impression: 36-year-old single female with a long history of alcohol abuse presents for her third detox at [facility] this year. She endorses anxiety and depression but is not clear if these only occur exclusively in the context of substance abuse. She would benefit from ongoing substance abuse treatment. She would also benefit for medication for mood and alcohol cravings which she is agreeable to at this time. Provisional Treatment Plan: 1. Please start Zoloft 50 mg daily 2. Please start Campral 666 mg 3 times a day 3. Appreciate social work assistance for disposition 4. Patient to return to therapy at [facility] in [place]. Thank you for including psychiatry in this case we will follow. A total of 60 minutes was spent with the patient with more than 50% of the time spent in counseling and/or coordination of care.
[2016-09-04] MEDS ORDERED: ACAMPROSATE CA333 M1 PO (21:20)
[2016-09-04] MEDS ORDERED: LORAZEPAM1 M1 PO (21:20)
[2016-09-04] MEDS ORDERED: SERTRALINE HCL50 MG PO (21:20)
--- NOTE | 2016-09-04 21:32 | Patient Discharge Instructions ---
Discharge Instructions General Discharge Information You were seen/treated for: Alcohol Detox Pneumonia Watch for these problems: Tremors, hallucinations, Fever, Shortness of breath Special Instructions: Please Follow up with your PCP within a week. Please follow up with [facility] in [place] for the therapy. Diet Continue normal diet: Yes Activity Full Activity/No Limits: Yes Acute Coronary Syndrome Inclusion Criteria At DC or during hospital stay patient has or had the following: ACS DIAGNOSIS No Discharge Core Measures Meds if any: Prescribed or Continued at Discharge Meds if any: NOT Prescribed or Continued at Discharge Congestive Heart Failure Inclusion Criteria At DC or during hospital stay patient has or had the following: CHF DIAGNOSIS No Discharge Core Measures Meds if any: Prescribed or Continued at Discharge Meds if any: NOT Prescribed or Continued at Discharge Cerebrovascular accident Inclusion Criteria At DC or during hospital stay patient has or had the following: CVA/TIA Diagnosis No Discharge Core Measures Meds if any: Prescribed or Continued at Discharge Meds if any: NOT Prescribed or Continued at Discharge Venous thromboembolism Inclusion Criteria VTE Diagnosis No VTE Type NONE VTE Confirmed by (Test) NONE Discharge Core Measures - Per Current guidelines, there needs to be overlap - treatment for the first 5 days of Warfarin therapy. - If discharged on Warfarin prior to 5 days of - overlap therapy, the patient will need to be - assessed for post discharge needs including - *Post discharge parental anticoagulation - *Warfarin and/or parental anticoagulation education - *Follow up date to check INR post discharge At least 5 days overlap therapy as Inpatient No Meds if any: Prescribed or Continued at Discharge Note: Overlap Therapy is Warfarin and Anticoagulant Meds if any: NOT Prescribed or Continued at Discharge
[2016-09-05] VITALS: BP 130/80
[2016-09-05 06:00] VITALS: BP 128/78
--- NOTE | 2016-09-05 06:31 | PN- Housestaff ---
See Addendum Subjective Follow-up For: Alcohol detox Pneumonia Subjective: Patient still reports some vivid dreams last night but denies hallucinations. Reports improvement in her cough, said rubitussin is helping. Denies any fever, chills, Nausea, vomitting or overnighrt events. Review of Systems Constitutional: Reports: no symptoms. EENTM: Reports: no symptoms. Cardiovascular: Reports: no symptoms. Respiratory: Reports: cough. Gastrointestinal: Reports: no symptoms. Genitourinary: Reports: no symptoms. Musculoskeletal: Reports: no symptoms. Skin: Reports: no symptoms. Neurological/Psychological: Reports: no symptoms. Hematologic/Endocrine: Reports: no symptoms. Immunologic/Allergic: Reports: no symptoms. Objective Last 24 Hrs of Vital Signs/I&O Vital Signs Date Time Temp Pulse Resp B/P B/P Pulse O2 O2 Flow FiO2 Mean Ox Delivery Rate 09/05 0600 98.0 105 20 128/78 09/05 0000 Room Air 09/05 0000 98.1 87 20 130/80 09/04 2248 98.1 87 20 130/80 98 Room Air 09/04 2200 98.1 87 20 130/80 09/04 2000 98.6 85 20 112/86 09/04 1800 98.7 80 18 110/64 09/04 1600 Room Air 09/04 1422 98.6 85 20 112/86 96 09/04 1400 98.6 85 20 112/96 09/04 1000 97.7 98 18 122/80 09/04 0933 80 122/80 09/04 0800 Room Air 09/04 0703 97.8 93 24 132/70 98 Intake & Output 09/05 0800 09/05 0000 09/04 1600 Intake Total 360 360 900 Output Total Balance 360 360 900 Intake, Oral 360 360 900 Number 1 Bowel Movements Patient 172 lb Weight Physical Exam General Appearance: Alert, Oriented X3, Cooperative Skin: No Rashes, No Breakdown HEENT: Atraumatic, PERRLA, EOMI, Mucous Membr. moist/pink Neck: Supple, No JVD, No thryomegaly Cardiovascular: Regular Rate, Normal S1, Normal S2, No Murmurs Lungs: Clear to Auscultation, Normal Air Movement Abdomen: Normal Bowel Sounds, Soft, No Tenderness, No Hepatospenomegaly Neurological: Normal Gait, Normal Speech, Strength at 5/5 X4 Ext, Normal Tone, Sensation Intact Current Medications: Current Medications Sig/Carola Start time Last Medication Dose Route Stop Time Status Admin Acamprosate 666 MG TID 09/04 2199 AC 09/04 PO 215 Acetaminophen 650 MG Q6P PRN 08/31 1530 AC 09/01 PO 0818 Albuterol Sulfate 2 PUF Q6PRN PRN 09/02 1015 AC 09/05 INH 0607 Amoxicillin/ 875 MG Q12 09/03 1000 AC 09/04 Clavulanate Potassium PO 09/05 Carbamazepine 200 MG BID 08/31 2200 AC 09/04 PO 2050 Cyanocobalamin 1,000 MCG DAILY 09/01 1000 AC 09/04 PO 0933 Ferrous Sulfate 325 MG DAILY 09/01 1000 AC 09/04 PO 0933 Folic Acid 1 MG DAILY 08/31 1530 AC 09/04 PO 0934 Gabapentin 300 MG TID 08/31 1607 AC 09/04 PO 2050 Guaifenesin 10 ML .STK-MED ONE 09/04 2158 DC PO 09/04 2159 Guaifenesin 10 ML Q6P PRN 08/31 1615 AC 09/05 PO 0607 Guaifenesin/ 10 ML .STK-MED ONE 09/04 1601 DC Dextromethorphan PO 09/04 1602 Guaifenesin/ 10 ML .STK-MED ONE 09/04 0928 DC Dextromethorphan PO 09/04 0929 Ibuprofen 400 MG Q6P PRN 09/01 1200 AC 09/01 PO 2053 Lorazepam 1.5 MG Q12 09/04 1000 AC 09/04 PO 2049 Lorazepam 2 MG Q8 09/03 2200 AZ 09/04 PO 0500 Lorazepam 2 MG Q2 HRS NEEDED PRN 09/03 1930 AC 09/05 PO 0607 Magnesium Chloride 64 MG BID 09/04 1414 AC 09/04 PO 2050 Magnesium Oxide 400 MG ONE ONE 09/04 1315 DC 09/04 PO 09/04 1316 1344 Magnesium Oxide 800 MG ONE ONE 09/04 1215 DC 09/04 PO 09/04 1216 1230 Magnesium Sulfate 1 GM Q2H 09/04 1215 CAN Dextrose/Water 100 ML IV 09/04 1614 Metoprolol Succinate 50 MG DAILY 08/31 1607 09/04 PO 0933 Nicotine 14 MG DAILY 09/01 2101 AC 09/04 TOP 0932 Oxycodone HCl 5 MG Q8P PRN 08/31 1530 AC PO Oxycodone HCl 10 MG Q6-PRN PRN 08/31 1530 AC PO Potassium Chloride 40 MEQ ONCE ONE 09/04 1200 DC 09/04 PO 09/04 1201 1230 Potassium Chloride 40 MEQ ONCE ONE 09/04 1030 DC 09/04 PO 09/04 1031 1035 Sertraline HCl 50 MG DAILY 09/04 1336 AC 09/04 PO 1557 Terbinafine HCl 250 MG DAILY 09/01 1000 AC 09/04 PO 0932 Thiamine HCl 100 MG DAILY 08/31 1530 AC 09/04 PO 0933 Last 24 Hrs of Lab/Deric Results Last 24 Hrs of Labs/Mics: Laboratory Tests 09/04/16 1604: Anion Gap 11, Estimated GFR > 60, BUN/Creatinine Ratio 10.0, Magnesium 0.8 *L Assessment/Plan Assessment: Patient is a 36-year-old woman with a past medical history significant for alcohol abuse, multiple times admissiont [facility] for alcohol dependence/withdrawal for very volunteer detox, history of anxiety and depression, peripheral neuropathy, history of seizure disorder presented to the ED requesting detox. Alcohol abuse requesting detox * Patient is on Ativan as per [facility] protocol. Will give her 1 dose of Ativan today.. * Zofran as needed for nausea and vomiting * Continue thiamine and folate and vitamin B12 * steam table worker consulted: Will Follow * Psych consulted. * Watch for any withdrawal seizures. Productive cough: Possible underlying viral versus bacterial bronchitis * CXR shows Reactive airway disease or bronchitis. * PAtient has been spiking low grade fevers when she came in but afebrile since then, patient was started on IV Ceftriaxone and azithromycin for possible CAP. Was switched to PO Augmentin.She will recieve her last dose of Augmentin today. * Patient on Robitussin as needed for cough * Follow blood cultures and Sputum culture. * Intensive spirometry. Hypokalemia and Hypomagnesemia. * Repleted with K-dur 40 mEq once before. Will replete her magnesium first before correcting potassium. Patient is on Slow-mag Tabs. History of anxiety and depression * Continue home dose of Cymbalta * Will start her on Campral and zoloft per Psych recommendations. History of tachycardia * History of home dose of metoprolol. History of seizure disorder * Continue home dose of Tegretol . History peripheral neuropathy: * Continue home dose of gabapentin History of alcoholic gastritis/GERD * Continue home dose of omeprazole. History of hypomagnesemia(Most likely secondary to chronic malnutrition) Thrombocytopenia; Will keep monitoring. Moderate to severe pain control with oxycodone DVT prophylaxis with subcutaneous Lovenox Patient is full code Problem List: 1. Alcohol dependence 2. Hypomagnesemia 3. Pneumonia Pain Ratin Pain Location: None Pain Goal: Remain pain free Pain Plan: None Tomorrow's Labs & Rationales: BEP(Hypomagnesemia and Hypo K)
[2016-09-05 07:22] VITALS: BP 130/74
[2016-09-05] MEDS ORDERED: SERTRALINE HCL50 MG PO (10:59)
[2016-09-05] MEDS ORDERED: SLOW-MAG71.5 MG PO ×2 (10:59→13:19)
[2016-09-05] MEDS ORDERED: ACAMPROSATE CA333 M1 PO (10:59)
[2016-09-05] MEDS ORDERED: LORAZEPAM1 M1 PO ×2 (10:59→11:25)
== END 2016-09-05 14:00 | DRG 775 ==
LOC: ERH 00:50 → 2NA 15:18 → ERHI 15:18 → ENRESERV 09-01 12:13 → ENTRNSPT 09-01 12:55 → EDTRNSPTSTS 09-01 13:07 → EDTRNSPT 09-01 13:07 → 2NA 09-01 13:15 → CMPTRNSPT 09-01 13:20 → ENPENDDIS 09-05 11:03 → 2NA 09-05 14:00
PROVIDERS: Emergency Medicine; Internal Medicine; Student in an Organized Health Care Education/Training Program; ADMIT Internal Medicine
DX: F10.239 Alcohol dependence with withdrawal, unspecified (principal); Y90.8 Blood alcohol level of 240 mg/100 ml or more; J20.9 Acute bronchitis, unspecified; D69.6 Thrombocytopenia, unspecified; G62.9 Polyneuropathy, unspecified; F41.9 Anxiety disorder, unspecified; F32.9 Major depressive disorder, single episode, unspecified; G40.909 Epilepsy, unspecified, not intractable, without status epilepticus; E83.42 Hypomagnesemia; E87.6 Hypokalemia; K29.20 Alcoholic gastritis without bleeding; K21.9 Gastro-esophageal reflux disease without esophagitis; J18.9 Pneumonia, unspecified organism
CPT/HCPCS: 2NAP; 84133; 84300; ERO; 36415; 80307; 81003; 81025; 82436; 82570; 87040; 87070; 93005; 93010; 96374; 96375; G0480; J0456; J0696; J1650; J2405; J3101; J3490; J7040